=== PATIENT | female | born 1955 | race Caucasian/White ===

== ENCOUNTER 2019-07-01 10:56 | Emergency (ER) | payer MEDICARE, MEDICAID, SELFPAY ==
[2019-07-01] VITALS (13 sets, daily range): BP systolic 185–229; BP diastolic 76–140; PULSE 76–124; RESP 4–40; TEMP 36.5; O2SAT 95–98; BMI 23.2
--- NOTE | 2019-07-01 11:17 | ED_ITS ---
Entered by Ronny Freeman LPN, acting as scribe for HPI - Altered Mental Status General: Chief Complaint: Altered Mental Status Stated Complaint: confused Time Seen by Provider: 07/01/19 11:18 Source: family (spouse) Mode of arrival: wheelchair Limitations: altered mental status History of Present Illness: HPI narrative: 63 yo female presents with spouse reporting he woke at 0800 this am to find pt with AMS, not responding to him. Unknown specific time of onset of symptoms. Spouse reports pt was at her baseline when they went to bed about 2200 last night. 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 Spouse states she doesn't usually look toward the left, she is flaccid on the left side. At baseline she is incontinent of bowel and bladder. He states she is spacey today, unusual for her. Also states that she is minimally verbal or communicative at baseline whereas today she is nonverbal. Spouse states last time she was like this she had a UTI, has had two of these since her CVA 2 years ago. MD complaint: altered mental status and decreased responsiveness Onset (ago): unknown (last known at baseline at 2200 last night) Timing confirmed by: spouse Severity: severe Consistency of symptoms: Constant Review of Systems General: Reports: ROS unobtainable due to mental status (pt unable to provide history, it has been obtained from spouse) GI: Denies: vomiting or diarrhea : Reports: other (pt is chronically incontinent of bowel and bladder.) Neuro: Reports: other (AMS, decreased responsiveness, spacey per spouse) PFSH ED PFSH: Statuses (acute, chronic, etc) shown below reflect problem list status as previously entered and may not be historically accurate Social History Smoking and tobacco status: former smoker Physical Exam Const: COMMON NORMALS: no apparent distress and alert EXAM LIMITATIONS: other limitations (history of cva with left hemineglect, nonverbal today) GENERAL APPEARANCE: cooperative and frail appearing NUTRITIONAL APPEARANCE: cachectic ORIENTATION/CONSCIOUSNESS: Yes awake HENMT: COMMON NORMALS: normocephalic and external nose normal HEAD & SCALP: normocephalic NOSE: external nose normal MOUTH: other (dried secretions to right lower mouth) Resp: COMMON NORMALS: normal respiratory effort Cardio: COMMON NORMALS: regular rate and regular rhythm RATE: regular rate RHYTHM: regular rhythm Neuro: SENSORIUM/ORIENTATION: Yes alert OTHER: pt has residual left sided moe-neglect from prior cva 2 years ago, will not track past midline to left, 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 Labs: Lab Results 07/01/19 07/01/19 07/01/19 Range/Units 11:30 11:30 12:01 WBC (4.0-10.0) 10^3/ uL RBC (4.1-5.3) 10^6/u L Hgb (11.5-15.3) g/dL Hct (37.0-47.0) % MCV (81-99) fL MCH (28.0-34.0) pg MCHC (30.0-36.0) g/dL RDW (12.1-15.1) % Plt Count (130-400) 10^3/c mm MPV (7.4-10.4) fL Neut % (Auto) % Lymph % (Auto) % [place] % (Auto) % Eos % (Auto) % Baso % (Auto) % Neut # (Auto) (1.8-7.7) 10^3/u L Lymph # (Auto) (0.8-4.8) 10^3/u L [place]clean # (Auto) (0.2-0.9) 10^3/u L Eos # (Auto) (0.0-0.8) 10^3/u L Baso # (Auto) (0.0-0.1) 10^3/u L Nucleated RBC % (a uto) % Nucleated RBCs # /100WBC PT (10.5-13.3) SECO NDS INR (0.8-1.2) APTT (23.9-36.7) SECO NDS Sodium (136-145) mmol/L Potassium (3.5-5.1) mmol/L Chloride (98-107) mmol/L Carbon Dioxide (22-29) mmol/L Anion Gap (5-19) BUN (8-23) mg/dL Creatinine (0.5-0.9) mg/dL GFR Calculation (90-130) mL/min Glucose (74-106) mg/dL POC Glucose 94 (70-110) mg/dL Calcium (8.8-10.2) mg/Dl Total Bilirubin (0.15-1.2) mg/dL AST (0-32) U/L ALT (0-33) U/L Alkaline Phosphata se (35-105) IU/L Total Protein (6.6-8.7) g/dL Albumin (3.5-5.2) g/dL Globulin (1.3-4.6) g/dL Urine Color Yellow (Yellow) Urine Appearance Hazy A (CLEAR) Urine pH 7 (5-7) Ur Specific Gravit y 1.005 (1.005-1.030) Urine Protein Trace (Negative) Urine Glucose (UA) Norm (Normal) Urine Ketones Negative (Negative) Urine Occult Blood Neg (Negative) Urine Nitrate Positive H (Negative) Urine Bilirubin Neg (NEGATIVE) Urine Urobilinogen 1 H (Negative) mg/dL Ur Leukocyte Lily ase 2+ H (Negative) Urine RBC None (0-2) /hpf Urine WBC 40-55 H (0-5) /hpf Ur Squamous Epith Cells 0-4 H (0-5) Urine Bacteria 4+ H (NONE) Urine Opiates Scre en Negative (Negative) ng/mL Ur Barbiturates Sc reen Negative (Negative) ng/mL Ur Phencyclidine S crn Negative (Negative) ng/mL Ur Amphetamines Sc reen Negative (Negative) ng/mL U Benzodiazepines Scrn Negative (Negative) ng/mL Urine Cocaine Scre en Negative (Negative) ng/mL U Marijuana (THC) Screen Negative (Negative) ng/mL 07/01/19 07/01/19 07/01/19 Range/Units 12:10 12:10 12:10 WBC 8.3 (4.0-10.0) 10^3/ uL RBC 3.78 L (4.1-5.3) 10^6/u L Hgb 10.5 L (11.5-15.3) g/dL Hct 32.3 L (37.0-47.0) % MCV 85.4 (81-99) fL MCH 27.8 L (28.0-34.0) pg MCHC 32.5 (30.0-36.0) g/dL RDW 13.5 (12.1-15.1) % Plt Count 378 (130-400) 10^3/c mm MPV 10.0 (7.4-10.4) fL Neut % (Auto) 69.7 % Lymph % (Auto) 23.1 % [place]clean % (Auto) 5.6 % Eos % (Auto) 1.0 % Baso % (Auto) 0.4 % Neut # (Auto) 5.8 (1.8-7.7) 10^3/u L Lymph # (Auto) 1.9 (0.8-4.8) 10^3/u L [place] # (Auto) 0.5 (0.2-0.9) 10^3/u L Eos # (Auto) 0.1 (0.0-0.8) 10^3/u L Baso # (Auto) 0.0 (0.0-0.1) 10^3/u L Nucleated RBC % (a uto) 0 % Nucleated RBCs # 0.0 /100WBC PT 13.60 H (10.5-13.3) SECO NDS INR 1.01 (0.8-1.2) APTT 25.2 (23.9-36.7) SECO NDS Sodium 139 (136-145) mmol/L Potassium 2.9 L (3.5-5.1) mmol/L Chloride 99 (98-107) mmol/L Carbon Dioxide 27 (22-29) mmol/L Anion Gap 15.9 (5-19) BUN 6 L (8-23) mg/dL Creatinine 0.5 (0.5-0.9) mg/dL GFR Calculation 123.8 (90-130) mL/min Glucose 98 (74-106) mg/dL POC Glucose (70-110) mg/dL Calcium 10.0 (8.8-10.2) mg/Dl Total Bilirubin 0.5 (0.15-1.2) mg/dL AST 15 (0-32) U/L ALT 11 (0-33) U/L Alkaline Phosphata se 104 (35-105) IU/L Total Protein 7.5 (6.6-8.7) g/dL Albumin 3.3 L (3.5-5.2) g/dL Globulin 4.2 (1.3-4.6) g/dL Urine Color (Yellow) Urine Appearance (CLEAR) Urine pH (5-7) Ur Specific Gravit y (1.005-1.030) Urine Protein (Negative) Urine Glucose (UA) (Normal) Urine Ketones (Negative) Urine Occult Blood (Negative) Urine Nitrate (Negative) Urine Bilirubin (NEGATIVE) Urine Urobilinogen (Negative) mg/dL Ur Leukocyte Lily ase (Negative) Urine RBC (0-2) /hpf Urine WBC (0-5) /hpf Ur Squamous Epith Cells (0-5) Urine Bacteria (NONE) Urine Opiates Scre en (Negative) ng/mL Ur Barbiturates Sc reen (Negative) ng/mL Ur Phencyclidine S crn (Negative) ng/mL Ur Amphetamines Sc reen (Negative) ng/mL U Benzodiazepines Scrn (Negative) ng/mL Urine Cocaine Scre en (Negative) ng/mL U Marijuana (THC) Screen (Negative) ng/mL Imaging Data^: CXR: Radiologist's impression: Patient: Nguyen Morin #: [id number] : 4Acct#:[id number] Age/Sex: 63 / FADM Date: 07/01/19 Loc: ERRoom/Bed: Attending Dr: Ordering Provider/Ordering MD: Soila Bonilla DO Date of Service: 07/01/19 Procedure(s): CT head wo con* 79185 Accession Number(s): [id number] Report Number: [id number]/CT head wo con* [id number] THIS REPORT CONTAINS FINDINGS THAT MAY BE CRITICAL TO PATIENT CARE. The findings were verbally communicated via telephone conference with Soila Bonilla at 1:19 PM MANAGER [employer] on 07/01/2019. The findings were acknowledged and understood. Radiation Dose CTDIVOL = (mGy): DLP = 2185.33 (mGy-cm) Addendum Dictated By: Johnathan Griffin MD Addendum Signed By: Johnathan Griffin MDSigned Date/Time:07/01/19 1320 Addendum Cosigned By: PROCEDURE INFORMATION: Exam: CT Head Without Contrast Exam date and time: 07/01/2019 12:06 PM Age: 63 years old Clinical indication: Altered mental status/memory loss and weakness, extremity; Left; Confusion or disorientation; Additional info: Symptoms of acute stroke TECHNIQUE: Imaging protocol: Computed tomography of the head without contrast. Total DLP: 2185.33 mGy-cm Radiation optimization: All CT scans at this facility use at least one of these dose optimization techniques: automated exposure control; mA and/or kV adjustment per patient size (includes targeted exams where dose is matched to clinical indication); or iterative reconstruction. COMPARISON: No relevant prior studies available. FINDINGS: Brain: Encephalomalacia in the right frontal and parietal lobe.There is gyral hyperdensity and calcification. Finding may represent laminar necrosis. Small superimposed hemorrhage cannot be excluded. Comparison with prior imaging if available can be helpful. Ventricles: Normal. No ventriculomegaly. Bones/joints: Unremarkable. No acute fracture. Sinuses: Opacification of bilateral maxillary and ethmoid as well as sphenoid and frontal sinuses. Mastoid air cells: Partial opacification of the right mastoid air cells. Soft tissues: Unremarkable. Vasculature: CT/CT head wo con* [id number] IMPRESSION: Encephalomalacia in the right frontal and parietal lobe with gyral hyperdensity and calcification. Finding may represent laminar necrosis. Small superimposed hemorrhage cannot be excluded. Comparison with prior imaging if available can be helpful. Otherwise a short term followup can be considered for stability. Radiation Dose CTDIVOL = (mGy): DLP = 2185.33 (mGy-cm) Dictated By:Johnathan Griffin MD CT Head: Radiologist's impression: Patient: Nguyen Morin #: [id number] : [facility][id number] Age/Sex: 63 / FADM Date: 07/01/19 Loc: BANNERoom/Bed: Attending Dr: Ordering Provider/Ordering MD: Soila Bonilla DO Date of Service: 07/01/19 Procedure(s): XR chest 1V portable [id number] Accession Number(s): [id number] Report Number: [id number] PROCEDURE INFORMATION: Exam: XR Chest, 1 View Exam date and time: 07/01/2019 12:38 PM Age: 63 years old Clinical indication: Patient HX: PT was brought in [facility], limited HX available TECHNIQUE: Imaging protocol: XR of the chest Views: 1 view. COMPARISON: CR Chest 1 [place] [id number] 03/25/2019 1:15 PM FINDINGS: Lungs: Unremarkable. No consolidation. Pleural space: Unremarkable. No pleural effusion. No pneumothorax. Heart/Mediastinum: Unremarkable. No cardiomegaly. Bones/joints: Degenerative changes of the spine and bilateral shoulder joints. XR/XR chest 1V portable [id number] IMPRESSION: No acute abnormality. Dictated By:Johnathan Griffin MD EKG Data^: EKG 1: Computer generated interpretation: Measurements Intervals [place] Rate: 98 P: 46 NM: 163 QRS: 38 QRSD: 82 T: 40 QT: 370 QTc: [address] DEPRESSION [0.025+ mV ST DEPRESSION] INTERPRETATION BASED ON A DEFAULT AGE OF 40 YEARS Compared to ECG 03/25/2019 13:29:24 Sinus tachycardia no longer present ST (T wave) deviation still present [email or web address] Dictated By:INTERFACE,USER Signed By:Signed Date/Time: DD/ 1201 Discharge Plan Discharge Patient Disposition: Home, Self-Care Clinical Impression: Acute UTI (urinary tract infection), Delirium due to general medical condition, Hypokalemia Condition: Stable Prescriptions: New potassium chloride 20 mEq/15 mL liquid 20 meq PO DAILY Qty: 1200 RF: 0 doxycycline monohydrate 100 mg capsule 100 mg PO BID 7 Days Qty: 14 RF: 0 clonidine HCl 0.1 mg tablet 0.1 mg PO TID Qty: 30 RF: 0 No Action atorvastatin 80 mg tablet 80 mg PO DAILY RF: 0 clonidine HCl 0.1 mg Tablet 0.1 mg PO DAILY PRN (Reason: Blood Pressure) RF: 0 lisinopril 20 mg tablet 20 mg PO DAILY RF: 0 Senna Plus 8.6-50 mg tablet 1 tab PO BID RF: 0 clopidogrel 75 mg tablet 75 mg PO DAILY RF: 0 metformin 1,000 mg Tablet 1,000 mg PO BID RF: 0 Referrals: Angie Conn MD [Primary Care Provider] - Discharge Diet: Usual diet Discharge Activity: Resume usual activity Patient Instructions: Urinary Tract Infection in Women (ED), Hypokalemia (ED), Altered Mental Status (ED) Coding Level of Care Code ED Velocity Shooter for Chg Fwd Exam Problem Focused The documentation recorded by the Lydia rouse Dani Elizabeth, LPN, accurately reflects the service I personally performed and the decisions made by Chad goodwin Amanda, DO Jul 01, 2019 10:56
--- NOTE | 2019-07-01 11:48 | XRR_ITS ---
PROCEDURE INFORMATION: Exam: XR Chest, 1 View Exam date and time: 07/01/2019 12:38 PM Age: 63 years old Clinical indication: Patient HX: PT was brought in [facility], limited HX available TECHNIQUE: Imaging protocol: XR of the chest Views: 1 view. COMPARISON: CR Chest 1 [place] [id number] 03/25/2019 1:15 PM FINDINGS: Lungs: Unremarkable. No consolidation. Pleural space: Unremarkable. No pleural effusion. No pneumothorax. Heart/Mediastinum: Unremarkable. No cardiomegaly. Bones/joints: Degenerative changes of the spine and bilateral shoulder joints. XR/XR chest 1V portable [id number] IMPRESSION: No acute abnormality.
--- NOTE | 2019-07-01 11:49 | ECG_ITS ---
Measurements Intervals [place] Rate: 98 P: 46 DE: 163 QRS: 38 QRSD: 82 T: 40 QT: 370 QTc: [address] DEPRESSION [0.025+ mV ST DEPRESSION] INTERPRETATION BASED ON A DEFAULT AGE OF 40 YEARS Compared to ECG 03/25/2019 13:29:24 Sinus tachycardia no longer present ST (T wave) deviation still present Electronically Signed On 07-01-2019 16:47:25 THREE D[employer]IONAL ART INSTRUCTOR by Razia Bacon M.D. [email or web address]
--- NOTE | 2019-07-01 11:49 | CTR_ITS ---
PROCEDURE INFORMATION: Exam: CT Head Without Contrast Exam date and time: 07/01/2019 12:06 PM Age: 63 years old Clinical indication: Altered mental status/memory loss and weakness, extremity; Left; Confusion or disorientation; Additional info: Symptoms of acute stroke TECHNIQUE: Imaging protocol: Computed tomography of the head without contrast. Total DLP: 2185.33 mGy-cm Radiation optimization: All CT scans at this facility use at least one of these dose optimization techniques: automated exposure control; mA and/or kV adjustment per patient size (includes targeted exams where dose is matched to clinical indication); or iterative reconstruction. COMPARISON: No relevant prior studies available. FINDINGS: Brain: Encephalomalacia in the right frontal and parietal lobe.There is gyral hyperdensity and calcification. Finding may represent laminar necrosis. Small superimposed hemorrhage cannot be excluded. Comparison with prior imaging if available can be helpful. Ventricles: Normal. No ventriculomegaly. Bones/joints: Unremarkable. No acute fracture. Sinuses: Opacification of bilateral maxillary and ethmoid as well as sphenoid and frontal sinuses. Mastoid air cells: Partial opacification of the right mastoid air cells. Soft tissues: Unremarkable. Vasculature: CT/CT head wo con* [id number] IMPRESSION: Encephalomalacia in the right frontal and parietal lobe with gyral hyperdensity and calcification. Finding may represent laminar necrosis. Small superimposed hemorrhage cannot be excluded. Comparison with prior imaging if available can be helpful. Otherwise a short term followup can be considered for stability. Radiation Dose CTDIVOL = (mGy): DLP = 2185.33 (mGy-cm)
[2019-07-01 12:16] LABS: Glucose Point of Care 94 mg/dL (70-110)
[2019-07-01 12:29] LABS: Basophils % 0.4 %; Eosinophils # 0.1 10^3/uL (0.0-0.8); Hematocrit 32.3 % (37.0-47.0); Hemoglobin 10.5 g/dL (11.5-15.3); Lymphocytes # 1.9 10^3/uL (0.8-4.8); Lymphocytes % 23.1 %; Mean Corpuscular HGB Conc 32.5 g/dL (30.0-36.0); Mean Corpuscular Hemoglobin 27.8 pg (28.0-34.0); Mean Corpuscular Volume 85.4 fL (81-99); Monocytes # 0.5 10^3/uL (0.2-0.9); Monocytes % 5.6 %; Neutrophils # 5.8 10^3/uL (1.8-7.7); Neutrophils % 69.7 %; Nucleated Red Blood Cells % 0 %; Platelet Count 378 10^3/cmm (130-400); Red Blood Count 3.78 10^6/uL (4.1-5.3); Red Cell Distribution Width 13.5 % (12.1-15.1); White Blood Count 8.3 10^3/uL (4.0-10.0)
[2019-07-01] MEDS: sodium chloride 0.9% 500 ML 999 ML IV (12:29)
[2019-07-01] MEDS: hyDRALAzine 20 mg/mL INJ 1 mL 10 MG IVP (12:29)
[2019-07-01 12:36] LABS: INR 1.01 (0.8-1.2)
[2019-07-01 12:37] LABS: Partial Thromboplastin Time 25.2 SECONDS (23.9-36.7)
[2019-07-01 12:49] LABS: Alanine Aminotransferase 11 U/L (0-33); Albumin Level 3.3 g/dL (3.5-5.2); Alkaline Phosphatase 104 IU/L (35-105); Anion Gap 15.9 (5-19); Aspartate Amino Transferase 15 U/L (0-32); Blood Urea Nitrogen 6 mg/dL (8-23); Carbon Dioxide 27 mmol/L (22-29); Chloride 99 mmol/L (98-107); Globulin 4.2 g/dL (1.3-4.6); Glomerular Filtration Rate 123.8 mL/min (90-130); Glucose 98 mg/dL (74-106); Potassium 2.9 mmol/L (3.5-5.1); Sodium 139 mmol/L (136-145); Total Bilirubin 0.5 mg/dL (0.15-1.2); Total Protein 7.5 g/dL (6.6-8.7)
[2019-07-01 13:16] LABS: Glucose Urine UA Norm (Normal); Protein Urine Trace (Negative); Specific Gravity, Urine 1.005 (1.005-1.030); Urine Appearance Hazy (CLEAR); Urine Color Yellow (Yellow); pH Urine 7 (5-7)
[2019-07-01 13:17] LABS: Add Urine Microscopic? YES; Bilirubin Urine Neg (NEGATIVE); Blood Urine Neg (Negative); Ketones Urine Negative (Negative); Leukocyte Esterase Urine 2+ (Negative); Nitrate Urine Positive (Negative); Urobilinogen Urine 1 mg/dL (Negative)
[2019-07-01 13:18] LABS: Bacteria Urine 4+; Squamous Epithelial Cell Urine 0-4 (0-5)
[2019-07-01 13:19] LABS: Add Urine Culture? Yes; WBC Urine 40-55 /hpf (0-5)
[2019-07-01 13:21] LABS: Amphetamines Screen Urine Negative (Negative); Barbiturates Screen Urine Negative (Negative); Benzodiazepines Screen Urine Negative (Negative); Cocaine Screen Urine Negative (Negative); Opiate Screen Urine Negative (Negative); PCP Screen Urine Negative (Negative); THC Screen Urine Negative (Negative)
[2019-07-01] MEDS: cefTRIAXone 1,000 MG in sodium chloride 0.9% (plus) 50 ML 100 MG IV (14:06)
--- NOTE | 2019-07-01 14:06 | CTR_ITS ---
PROCEDURE INFORMATION: Exam: CT Head Without Contrast Exam date and time: 07/01/2019 2:56 PM Age: 63 years old Clinical indication: Altered mental status/memory loss; Confusion or disorientation; Additional info: Repeat to RO bleed TECHNIQUE: Imaging protocol: Computed tomography of the head without contrast. Total DLP: 807.27 mGy-cm Radiation optimization: All CT scans at this facility use at least one of these dose optimization techniques: automated exposure control; mA and/or kV adjustment per patient size (includes targeted exams where dose is matched to clinical indication); or iterative reconstruction. COMPARISON: CT head wo con* [id number] 07/01/2019 12:35 PM FINDINGS: Brain: There is diffuse volume loss. There is extensive white matter lucency consistent with chronic microvascular disease. There is extensive right rib cerebral encephalomalacia involving frontal, temporal and parietal lobes. This is consistent with extensive old right MCA infarct. There are areas of laminar necrosis and dystrophic calcification within the infarct. There is an old left basal ganglia infarct. Small old right cerebellar lacunar infarct. No acute infarct. No hemorrhage or extra-axial collection. No mass. Ventricles: There is ex vacuo dilatation of the right lateral ventricle. Bones/joints: Unremarkable. No acute fracture. Sinuses: There is extensive opacification of all of the visualized sinuses. The visualized left maxillary sinus is completely opacified. There are multiple air-fluid levels. No change from prior scan. Mastoid air cells: There is fluid in the middle ears and mastoid air cells bilaterally. No change from prior scan. Soft tissues: Unremarkable. CT/CT head wo con* [id number] IMPRESSION: 1. Extensive old right MCA infarct with laminar necrosis and dystrophic calcification. Old left basal ganglia infarct. 2. No acute lesion or hemorrhage. No change from prior scan. Radiation Dose CTDIVOL = (mGy): DLP = 807.27 (mGy-cm)
[2019-07-01] MEDS: cloNIDine 0.1 mg Tablet PO (16:29)
[2019-07-01 22:23] LABS: Glucose Point of Care 91 mg/dL (70-110)
== END 2019-07-01 16:53 | disposition home or self-care (01) ==
PROVIDERS: Emergency Provider Emergency Medicine; Family Provider Family Medicine; PCP Family Medicine
DX: N39.0 Urinary tract infection, site not specified (principal); F05 Delirium due to known physiological condition; E87.6 Hypokalemia; Z79.02 Long term (current) use of antithrombotics/antiplatelets; Z79.84 Long term (current) use of oral hypoglycemic drugs; Z87.891 Personal history of nicotine dependence
CPT/HCPCS: 36415; 36416; 51702; 70450; 71045; 80053; 80307; 81003; 82962; 85025; 85610; 85730; 87077; 87086; 87186; 93005; 96360; 96365; 96366; 96374; 99283; J0360; J0696; J3480; J7040

== ENCOUNTER 2019-09-29 22:13 | Emergency (ER) | payer MEDICARE, MEDICAID, SELFPAY ==
[2019-09-29 22:42] VITALS: BP 115/99; PULSE 123; RESP 16; TEMP 37.3; O2SAT 95; BMI 22.8
--- NOTE | 2019-09-29 23:10 | XRR_ITS ---
PROCEDURE INFORMATION: Exam: XR Left Shoulder Exam date and time: 09/29/2019 11:41 PM Age: 63 years old Clinical indication: Injury or trauma; Fall; Initial encounter; Blunt trauma (contusions or hematomas; Shoulder; Left; Additional info: Fall, pain TECHNIQUE: Imaging protocol: XR Left shoulder. Views: 2 or more views. COMPARISON: No relevant prior studies available. FINDINGS: Bones/joints: The bones are diffusely osteopenic. There is a displaced fracture of the humeral neck. The acromioclavicular joint is degenerated. The glenohumeral joint is difficult to evaluate on these images due to positioning. Soft tissues: No acute soft tissue abnormality. XR/XR shoulder LT min 2V* [id number] IMPRESSION: Displaced humeral neck fracture.
--- NOTE | 2019-09-29 23:11 | XRR_ITS ---
PROCEDURE INFORMATION: Exam: XR Chest, 1 View Exam date and time: 09/29/2019 11:41 PM Age: 63 years old Clinical indication: Fever TECHNIQUE: Imaging protocol: XR of the chest Views: 1 view. COMPARISON: CR XR chest 1V portable [id number] 07/01/2019 12:27 PM FINDINGS: Lungs: No focal peripheral lung consolidation, air bronchogram formation, or silhouette sign. Pleural space: No pleural effusion or pneumothorax. Heart/Mediastinum: The cardiac silhouette is not enlarged. The mediastinal contours are normal. Bones/joints: There is a displaced left humeral neck fracture. There are multilevel bridging osteophytes in the spine. Degeneration of both acromioclavicular joints. XR/XR chest 1V portable [id number] IMPRESSION: 1. No pneumonia. 2. Displaced left humeral neck fracture.
--- NOTE | 2019-09-29 23:11 | W.ED.GENADLT ---
HPI - General Adult General: Chief complaint: Fever Stated complaint: fever Time Seen by Provider: 09/29/19 22:49 History of Present Illness: HPI narrative: states patient was fine earlier today then got sick to her stomach and then she is been weak since. Not been taking fluids well well has history of chronic UTIs. History of past stroke left side affected. Then while he was get around the car this evening she fell on her left side he says she has left shoulder pain now. complaint: Vomiting with weakness Onset (ago): hour(s) Location: upper extremity Associated symptoms: Reports vomiting and weakness; Deny chest pain, dyspnea, headache(s) or rash Review of Systems Const: Reports: fever; Denies: chills or body aches Eyes: Denies: change in vision or blurry vision ENMT: Denies: throat pain or nasal congestion Card: Denies: chest pain or shortness of breath on exertion Resp: Denies: shortness of breath, productive cough or non-productive cough GI: Reports: vomiting Musc: Reports: extremity pain (Left shoulder) Skin/Breast: Denies: rash Neuro: Denies: headache Psych: Denies: anxiety or depression Scott/Lymph: Denies: easy bruising PFSH ED PFSH: Social History Smoking and tobacco status: former smoker Physical Exam Const: COMMON NORMALS: no apparent distress and average body habitus HENMT: COMMON NORMALS: normocephalic HEAD & SCALP: normal to inspection and normocephalic FACE & SINUS: normal facial exam Eye: COMMON NORMALS: conjunctivae normal GENERAL EYE: normal appearance of both eyes CONJUNCTIVA: Yes conjunctivae normal Neck/C-Spine: COMMON NORMALS: no JVD Chest: COMMONS NORMALS: inspection of chest normal Resp: COMMON NORMALS: normal respiratory effort and clear to auscultation bilaterally AUSCULTATION: clear to auscultation bilaterally Cardio: COMMON NORMALS: no JVD, regular rate and regular rhythm RATE: regular rate RHYTHM: regular rhythm GI: COMMON NORMALS: normal to inspection, nondistended, normoactive bowel sounds Extremity: COMMON NORMALS: normal to inspection NARRATIVE EXTREMITY EXAM: Pain with movement of left shoulder Neuro: SENSORIUM/ORIENTATION: Yes other (Patient does not communicate well does answer questions appropriately) Skin: NAILS: other OTHER: Poor turgor thin skin on the arms lower extremities cool Course Vital Signs: Vital signs: Vital Signs Temperature 99.1 F 09/29/19 22:42 Pulse Rate 110 H 09/29/19 23:49 Respiratory Rate 18 09/29/19 23:49 Blood Pressure 152/98 09/29/19 23:49 Pulse Oximetry 98 09/29/19 23:49 [facility] - General Adult Lab Data: Labs: Lab Results 09/29/19 09/29/19 Range/Units 23:10 23:10 WBC 10.3 H (4.0-10.0) 10^3/ uL RBC 3.73 L (4.1-5.3) 10^6/u L Hgb 10.8 L (11.5-15.3) g/dL Hct 34.2 L (37.0-47.0) % MCV 91.7 (81-99) fL MCH 29.0 (28.0-34.0) pg MCHC 31.6 (30.0-36.0) g/dL RDW 14.2 (12.1-15.1) % Plt Count 200 (130-400) 10^3/c mm MPV 10.9 H (7.4-10.4) fL Neut % (Auto) 84.5 % Lymph % (Auto) 6.1 % [place] % (Auto) 8.5 % Eos % (Auto) 0.1 % Baso % (Auto) 0.4 % Neut # (Auto) 8.7 H (1.8-7.7) 10^3/u L Lymph # (Auto) 0.6 L (0.8-4.8) 10^3/u L [place] # (Auto) 0.9 (0.2-0.9) 10^3/u L Eos # (Auto) 0.0 (0.0-0.8) 10^3/u L Baso # (Auto) 0.0 (0.0-0.1) 10^3/u L Nucleated RBC % (a uto) 0 % Nucleated RBCs # 0.0 /100WBC Sodium 137 (136-145) mmol/L Potassium 4.2 (3.5-5.1) mmol/L Chloride 101 (98-107) mmol/L Carbon Dioxide 23 (22-29) mmol/L Anion Gap 17.2 (5-19) BUN 22 (8-23) mg/dL Creatinine 0.7 (0.5-0.9) mg/dL GFR Calculation 84.0 L (90-130) mL/min Glucose 222 H (65-115) mg/dL Calculated Osmolal ity 288 (285-295) mOsm/k g Calcium 10.7 H (8.5-10.5) mg/dL Total Bilirubin 0.4 (0.15-1.2) mg/dL AST 42 H (0-32) U/L ALT 40 H (0-33) U/L Alkaline Phosphata se 129 H (35-105) IU/L Total Protein 6.9 (6.6-8.7) g/dL Albumin 3.6 (3.5-5.2) g/dL Globulin 3.3 (1.3-4.6) g/dL EKG Data^: EKG 1: EKG interpretation date: 09/29/19 EKG interpretation time: 23:47 Interpretation: Sinus tachycardia 110 bpm [place] interval 149 ms QRS duration [address] segment changes Discharge Plan Discharge Clinical Impression: Fracture, humerus, anatomical neck Qualifiers: Encounter type: initial encounter Fracture type: closed Laterality: left Qualified Code(s): S42.292A - Other displaced fracture of upper end of left humerus, initial encounter for closed fracture Condition: Stable Prescriptions: No Action lisinopril 20 mg tablet 20 mg PO DAILY Qty: 60 RF: 0 potassium chloride 20 mEq/15 mL liquid 20 meq PO DAILY Qty: 1200 RF: 0 metformin 1,000 mg tablet 1,000 mg PO BID Qty: 180 RF: 0 atorvastatin 80 mg tablet 80 mg PO DAILY Qty: 90 RF: 0 clonidine HCl 0.1 mg Tablet 0.1 mg PO DAILY PRN (Reason: Blood Pressure) RF: 0 Senna Plus 8.6-50 mg tablet 1 tab PO BID RF: 0 clopidogrel 75 mg tablet 75 mg PO DAILY RF: 0 clonidine HCl 0.1 mg tablet 0.1 mg PO TID Qty: 30 RF: 0 Referrals: Angie Conn MD [Primary Care Provider] - Coding Level of Care Code ED Valance Cutter for g Fwd Exam Comprehensive
[2019-09-29 23:21] LABS: Basophils % 0.4 %; Eosinophils % 0.1 %; Hematocrit 34.2 % (37.0-47.0); Hemoglobin 10.8 g/dL (11.5-15.3); Lymphocytes # 0.6 10^3/uL (0.8-4.8); Lymphocytes % 6.1 %; Mean Corpuscular HGB Conc 31.6 g/dL (30.0-36.0); Mean Corpuscular Volume 91.7 fL (81-99); Mean Platelet Volume 10.9 fL (7.4-10.4); Monocytes # 0.9 10^3/uL (0.2-0.9); Monocytes % 8.5 %; Neutrophils # 8.7 10^3/uL (1.8-7.7); Neutrophils % 84.5 %; Nucleated Red Blood Cells % 0 %; Platelet Count 200 10^3/cmm (130-400); Red Blood Count 3.73 10^6/uL (4.1-5.3); Red Cell Distribution Width 14.2 % (12.1-15.1); White Blood Count 10.3 10^3/uL (4.0-10.0)
[2019-09-29] MEDS: sodium chloride 0.9% 1,000 ML 999 ML IV (23:32)
[2019-09-29 23:49] VITALS: BP 152/98; PULSE 110; RESP 18; O2SAT 98
[2019-09-29 23:53] LABS: Alanine Aminotransferase 40 U/L (0-33); Albumin Level 3.6 g/dL (3.5-5.2); Alkaline Phosphatase 129 IU/L (35-105); Anion Gap 17.2 (5-19); Aspartate Amino Transferase 42 U/L (0-32); Blood Urea Nitrogen 22 mg/dL (8-23); Calcium 10.7 mg/dL (8.5-10.5); Carbon Dioxide 23 mmol/L (22-29); Chloride 101 mmol/L (98-107); Creatinine Clr Calc Pharmacy 56.7286; Globulin 3.3 g/dL (1.3-4.6); Glucose 222 mg/dL (65-115); Osmolality Calculated 288 mOsm/kg (285-295); Potassium 4.2 mmol/L (3.5-5.1); Sodium 137 mmol/L (136-145); Total Bilirubin 0.4 mg/dL (0.15-1.2); Total Protein 6.9 g/dL (6.6-8.7)
[2019-09-30] MEDS: ketorolac 60 mg/2 mL INJ IM (00:12)
[2019-09-30 00:49] VITALS: BP 125/76; PULSE 87; RESP 14; O2SAT 98
[2019-09-30 01:21] LABS: Add Urine Microscopic? YES; Bilirubin Urine Neg (NEGATIVE); Blood Urine 3+ (Negative); Glucose Urine UA Norm (Normal); Ketones Urine Negative (Negative); Leukocyte Esterase Urine 2+ (Negative); Nitrate Urine Positive (Negative); Protein Urine 1+ (Negative); Squamous Epithelial Cell Urine 0-4 (0-5); Urine Appearance Cloudy (CLEAR); Urine Color Yellow (Yellow); Urobilinogen Urine Norm (Negative); WBC Urine 25-40 /hpf (0-5); pH Urine 5 (5-7)
[2019-09-30 01:22] LABS: Add Urine Culture? Yes; Bacteria Urine 4+
[2019-09-30] MEDS: cefTRIAXone 1,000 MG in sodium chloride 0.9% (plus) 50 ML 100 MG IV (01:38)
[2019-09-30 02:38] VITALS: BP 122/79; PULSE 98; RESP 18; O2SAT 99
--- NOTE | 2019-10-03 15:15 | DCPLANNER ---
Addendum entered by Mandi Thomas 10/03/19 15:24: Angelita from ortho called home health care case manager, informing home health care case manager that a follow up appointment was scheduled for Friday, October 04, 2019 at 3:[address] Deluna. Clinic called patient with appointment information. Original Note: seed corn manager production had message to schedule a follow up appointment for patient with ortho. seed corn manager production called the ortho clinic, spoke with Angelita. seed corn manager production gave clinic patients information. seed corn manager production was told that patients information would be printed and reviewed. Clinic will call home health care case manager and patient with appointment information.
--- NOTE | 2019-11-15 07:57 | DCPLANNER ---
Patient did attend appointment scheduled for 10.04.19 with ortho.
== END 2019-09-30 02:39 | disposition home or self-care (01) ==
PROVIDERS: Emergency Provider Nurse Practitioner Family; Family Provider Family Medicine; PCP Family Medicine
DX: S42.292A Other displaced fracture of upper end of left humerus, initial encounter for closed fracture (principal); R50.9 Fever, unspecified; W01.0XXA Fall on same level from slipping, tripping and stumbling without subsequent striking against object, initial encounter; N39.0 Urinary tract infection, site not specified; Z86.73 Personal history of transient ischemic attack (TIA), and cerebral infarction without residual deficits; Z87.891 Personal history of nicotine dependence
CPT/HCPCS: 12345; 71045; 73030; 80053; 81001; 85025; 87077; 87086; 87186; 96360; 96361; 96365; 96372; 99283; A9270; J0696; J1885; J7030

== ENCOUNTER → 2019-10-24 12:23 | Outpatient (BNVA) | payer MEDICARE, MEDICAID, SELFPAY | PROVIDERS: Family Provider Family Medicine; PCP Family Medicine; Visit Provider Orthopaedic Surgery | DX: S42.212A Unspecified displaced fracture of surgical neck of left humerus, initial encounter for closed fracture (principal); M81.0 Age-related osteoporosis without current pathological fracture | CPT/HCPCS: 73030 ==

== ENCOUNTER 2020-02-24 16:54 | Emergency (ER) | payer MEDICARE, MEDICAID, SELFPAY ==
[2020-02-24 16:55] VITALS: BP 162/105; PULSE 109; RESP 18; TEMP 39.1; O2SAT 95; BMI 27.2
[2020-02-24 17:41] VITALS: BP 162/105; PULSE 104; RESP 20; O2SAT 96
[2020-02-24 18:08] VITALS: BP 167/91; PULSE 96; RESP 18; O2SAT 97
--- NOTE | 2020-02-24 18:10 | XRR_ITS ---
PROCEDURE INFORMATION: Exam: XR Chest, 1 View Exam date and time: 02/24/2020 6:29 PM Age: 64 years old Clinical indication: Dyspnea and fever TECHNIQUE: Imaging protocol: XR of the chest Views: 1 view. COMPARISON: CR XR chest 1V portable [id number] 09/29/2019 11:21 PM FINDINGS: Lungs: Visualized portions of the lungs are clear. Pleural space: Unremarkable. No pleural effusion. No pneumothorax. Heart/Mediastinum: Heart is within normal limits of size. Vasculature: There are atherosclerotic changes in the aortic arch. Bones/joints: There is healing fracture of the neck of the left humerus. Degenerative changes are present in the thoracic spine. XR/XR chest 1V portable [id number] IMPRESSION: No acute infiltrate.
[2020-02-24 18:30] LABS: Basophils # 0.1 10^3/uL (0.0-0.1); Basophils % 0.4 %; Eosinophils # 0.1 10^3/uL (0.0-0.8); Eosinophils % 0.4 %; Hematocrit 32.6 % (37.0-47.0); Hemoglobin 10.1 g/dL (11.5-15.3); Lymphocytes # 1.1 10^3/uL (0.8-4.8); Lymphocytes % 9.5 %; Mean Corpuscular Hemoglobin 28.1 pg (28.0-34.0); Mean Corpuscular Volume 90.6 fL (81-99); Mean Platelet Volume 11.1 fL (7.4-10.4); Monocytes # 0.5 10^3/uL (0.2-0.9); Monocytes % 4.4 %; Neutrophils # 9.53 10^3/uL (1.8-7.7); Nucleated Red Blood Cells % 0 %; Platelet Count 204 10^3/cmm (130-400); Red Cell Distribution Width 14.8 % (12.1-15.1); White Blood Count 11.2 10^3/uL (4.0-10.0)
[2020-02-24 19:02] LABS: Procalcitonin 0.42 ng/mL (0-0.5)
[2020-02-24 19:13] LABS: Alanine Aminotransferase 21 U/L (0-33); Alkaline Phosphatase 102 IU/L (35-105); Anion Gap 22.4 (5-19); Aspartate Amino Transferase 17 U/L (0-32); Blood Urea Nitrogen 20 mg/dL (8-23); C Reactive Protein 25.8 mg/L (0.0-4.9); Calcium 9.4 mg/dL (8.5-10.5); Carbon Dioxide 20 mmol/L (22-29); Chloride 101 mmol/L (98-107); Creatinine Clr Calc Pharmacy 59.4395; Glomerular Filtration Rate 62.6 mL/min (90-130); Glucose 126 mg/dL (65-115); Osmolality Calculated 286 mOsm/kg (285-295); Potassium 4.4 mmol/L (3.5-5.1); Sodium 139 mmol/L (136-145); Total Bilirubin 0.3 mg/dL (0.15-1.2)
[2020-02-24 19:20] LABS: Urine Appearance Cloudy (CLEAR); Urine Color Yellow (Yellow)
[2020-02-24 19:21] LABS: Add Urine Microscopic? YES; Bilirubin Urine Neg (NEGATIVE); Blood Urine 3+ (Negative); Glucose Urine UA Norm (Normal); Ketones Urine Negative (Negative); Leukocyte Esterase Urine 2+ (Negative); Nitrate Urine Positive (Negative); Protein Urine 1+ (Negative); Specific Gravity, Urine 1.015 (1.005-1.030); Urobilinogen Urine Norm (Negative); pH Urine 6 (5-7)
[2020-02-24 19:22] LABS: Bacteria Urine 4+; Mucus Urine 1+; RBC Urine 15-25 /hpf (0-2); Squamous Epithelial Cell Urine 0-4 (0-5); WBC Urine >100 /hpf (0-5)
[2020-02-24 19:23] LABS: Add Urine Culture? Yes
[2020-02-24 19:30] LABS: Lactate (Lactic Acid level) 0.8 mmol/L (0.5-2.2)
[2020-02-24] MEDS: cefTRIAXone 1,000 MG in sodium chloride 0.9% (plus) 50 ML 100 MG IV (20:00)
[2020-02-24 20:03] VITALS: PULSE 103; TEMP 36.9
--- NOTE | 2020-02-24 20:45 | ED_ITS ---
HPI - Fever General: Chief Complaint: Fever Stated Complaint: FEVER Time Seen by Provider: 02/24/20 17:05 Source: EMS Mode of arrival: EMS Limitations: other (Patient is nonverbal) History of Present Illness: HPI Narrative: All of the history was obtained from EMS. The patient is nonverbal. She is however alert and is able to nod and shake her head to simple questions. She was apparently running a fever at home about 1-1/2 hours before arrival, fever was as high as 103. After that her noticed that she was having some shaking which seems like she was having some rigor. She was not post ictal on arrival so I do not believe that she was having a seizure. She has a history of a CVA with residual left sided weakness. Patient shook her head when i asked if she was hurting anywhere, also when i asked if she was short of breath. She nodded when i asked if she had a fever. MD elicited complaint: fever Review of Systems General: Reports: Other (Unobtainable due to patient being nonverbal) [facility] ED PFSH: Medical History History of diabetes mellitus Hypercholesterolemia Social History Smoking and tobacco status: former smoker Physical Exam Const: COMMON NORMALS: no acute distress, average body habitus, patient oriented x3, no limitations, healthy appearing, alert and well nourished HENMT: COMMON NORMALS: normocephalic, atraumatic and moist oral mucous membranes HEAD & SCALP: normocephalic and atraumatic Eye: COMMON NORMALS: Equal, round and reactive pupils present, EOMs intact bilaterally, conjunctivae normal and no scleral icterus CONJUNCTIVA: Yes conjunctivae normal PUPIL: Yes Equal, round and reactive pupils present Neck/C-Spine: COMMON NORMALS: full ROM, supple, no meningeal signs, no JVD and No carotid bruits Resp: COMMON NORMALS: normal respiratory effort, No retractions, No use of accessory muscles, clear to auscultation bilaterally and percussion normal AUSCULTATION: clear to auscultation bilaterally PERCUSSION: percussion normal Cardio: COMMON NORMALS: no JVD, regular rate, regular rhythm, S1 normal heart sound present, S2 normal heart sound present, No gallops present (Cardio), No clicks present (Cardio), No murmurs present (Cardio), No rub (Cardio) and Peripheral pulses 2+ throughout RATE: regular rate RHYTHM: regular rhythm HEART SOUNDS: S1 normal heart sound present and S2 normal heart sound present PERIPHERAL PULSES: Peripheral pulses 2+ throughout GI: COMMON NORMALS: Normal to inspection, nondistended, normoactive bowel sounds present, Soft to palpation, non-tender, No hepatosplenomegaly present, no masses and no bruits PALPATION: Yes Soft to palpation and Yes No hepatosplenomegaly present Extremity: COMMON NORMALS: normal to inspection, full ROM, capillary refill normal, no calf tenderness and no pedal edema Neuro: COMMON NORMALS: patient oriented x3 SENSORIUM/ORIENTATION: Yes alert MENINGEAL SIGNS: Yes no meningeal signs Skin: COMMON NORMALS: no rashes or lesions noted, no wounds, turgor normal, no jaundice, no petechiae and no mottling GENERAL SKIN EXAM: no rashes or lesions noted and turgor normal Course Reevaluation(s): Reevaluation #1: Discussed her labs and imaging with the patient and her . She has a UTI. Patient is now verbal and talking normally. She says she feels much better and her attest to that. Since her labs are not that bad with only mild leukocytosis and there is no indication for hospital admission. We will discharge her home on oral antibiotics. She voiced understanding and is in agreement with the plan Time: 20:47 Vital Signs: Vital signs: Vital Signs Temperature 98.5 F 02/24/20 20:03 Pulse Rate 103 H 02/24/20 20:03 Respiratory Rate 18 02/24/20 18:08 Blood Pressure 163/108 02/24/20 22:01 Pulse Oximetry 97 02/24/20 18:08 MDM - Fever MDM Narrative: Medical decision making narrative: 64-year-old female patient who presented with a fever. Evaluation in the emergency department showed that she has a UTI. She was given a dose of intravenous ceftriaxone and discharged home on oral medications. Her evaluation was otherwise unremarkable. Medical Records: Attestation: I reviewed the patient's medical records. Lab Data: Attestation: I reviewed the patient's lab results. Labs: Lab Results 02/24/20 02/24/20 02/24/20 Range/Units 16:00 16:00 18:09 WBC 11.2 H (4.0-10.0) 10^3/ uL RBC 3.60 L (4.1-5.3) 10^6/u L Hgb 10.1 L (11.5-15.3) g/dL Hct 32.6 L (37.0-47.0) % MCV 90.6 (81-99) fL MCH 28.1 (28.0-34.0) pg MCHC 31.0 (30.0-36.0) g/dL RDW 14.8 (12.1-15.1) % Plt Count 204 (130-400) 10^3/c mm MPV 11.1 H (7.4-10.4) fL Neut % (Auto) 85.0 % Lymph % (Auto) 9.5 % [place] % (Auto) 4.4 % Eos % (Auto) 0.4 % Baso % (Auto) 0.4 % Neut # (Auto) 9.53 H (1.8-7.7) 10^3/u L Lymph # (Auto) 1.1 (0.8-4.8) 10^3/u L [place] # (Auto) 0.5 (0.2-0.9) 10^3/u L Eos # (Auto) 0.1 (0.0-0.8) 10^3/u L Baso # (Auto) 0.1 (0.0-0.1) 10^3/u L Nucleated RBC % (a uto) 0 % Nucleated RBCs # 0.0 /100WBC Sodium 139 (136-145) mmol/L Potassium 4.4 (3.5-5.1) mmol/L Chloride 101 (98-107) mmol/L Carbon Dioxide 20 L (22-29) mmol/L Anion Gap 22.4 H (5-19) BUN 20 (8-23) mg/dL Creatinine 0.9 (0.5-0.9) mg/dL GFR Calculation 62.6 L (90-130) mL/min Glucose 126 H (65-115) mg/dL Calculated Osmolal ity 286 (285-295) mOsm/k g Lactate (0.5-2.2) mmol/L Calcium 9.4 (8.5-10.5) mg/dL Total Bilirubin 0.3 (0.15-1.2) mg/dL AST 17 (0-32) U/L ALT 21 (0-33) U/L Alkaline Phosphata se 102 (35-105) IU/L C-Reactive Protein 25.8 H (0.0-4.9) mg/L Total Protein 7.0 (6.6-8.7) g/dL Albumin 4.0 (3.5-5.2) g/dL Globulin 3.0 (1.3-4.6) g/dL Procalcitonin 0.42 (0-0.5) ng/mL Urine Color Yellow (Yellow) Urine Appearance Cloudy (CLEAR) Urine pH 6 (5-7) Ur Specific Gravit y 1.015 (1.005-1.030) Urine Protein 1+ H (Negative) Urine Glucose (UA) Norm (Normal) Urine Ketones Negative (Negative) Urine Blood 3+ H (Negative) Urine Nitrate Positive H (Negative) Urine Bilirubin Neg (NEGATIVE) Urine Urobilinogen Norm (Negative) mg/dL Ur Leukocyte Lily ase 2+ H (Negative) Urine RBC 15-25 H (0-2) /hpf Urine WBC >100 H (0-5) /hpf Ur Squamous Epith Cells 0-4 H (0-5) Amorphous Sediment Not Reportable Urine Bacteria 4+ H (NONE) Urine Mucus 1+ 09/05/20 Range/Units 19:05 WBC (4.0-10.0) 10^3/ uL RBC (4.1-5.3) 10^6/u L Hgb (11.5-15.3) g/dL Hct (37.0-47.0) % MCV (81-99) fL MCH (28.0-34.0) pg MCHC (30.0-36.0) g/dL RDW (12.1-15.1) % Plt Count (130-400) 10^3/c mm MPV (7.4-10.4) fL Neut % (Auto) % Lymph % (Auto) % [place] % (Auto) % Eos % (Auto) % Baso % (Auto) % Neut # (Auto) (1.8-7.7) 10^3/u L Lymph # (Auto) (0.8-4.8) 10^3/u L [place] # (Auto) (0.2-0.9) 10^3/u L Eos # (Auto) (0.0-0.8) 10^3/u L Baso # (Auto) (0.0-0.1) 10^3/u L Nucleated RBC % (a uto) % Nucleated RBCs # /100WBC Sodium (136-145) mmol/L Potassium (3.5-5.1) mmol/L Chloride (98-107) mmol/L Carbon Dioxide (22-29) mmol/L Anion Gap (5-19) BUN (8-23) mg/dL Creatinine (0.5-0.9) mg/dL GFR Calculation (90-130) mL/min Glucose (65-115) mg/dL Calculated Osmolal ity (285-295) mOsm/k g Lactate 0.8 (0.5-2.2) mmol/L Calcium (8.5-10.5) mg/dL Total Bilirubin (0.15-1.2) mg/dL AST (0-32) U/L ALT (0-33) U/L Alkaline Phosphata se (35-105) IU/L C-Reactive Protein (0.0-4.9) mg/L Total Protein (6.6-8.7) g/dL Albumin (3.5-5.2) g/dL Globulin (1.3-4.6) g/dL Procalcitonin (0-0.5) ng/mL Urine Color (Yellow) Urine Appearance (CLEAR) Urine pH (5-7) Ur Specific Gravit y (1.005-1.030) Urine Protein (Negative) Urine Glucose (UA) (Normal) Urine Ketones (Negative) Urine Blood (Negative) Urine Nitrate (Negative) Urine Bilirubin (NEGATIVE) Urine Urobilinogen (Negative) mg/dL Ur Leukocyte Lily ase (Negative) Urine RBC (0-2) /hpf Urine WBC (0-5) /hpf Ur Squamous Epith Cells (0-5) Amorphous Sediment Urine Bacteria (NONE) Urine Mucus Imaging Data^: CXR: Radiologist's impression: [address] [address] XRay Report Signed Patient: Blink,MarionUnit #: [id number] : 4Acct#:[id number] Age/Sex: 64 / FADM Date: 02/24/20 Loc: ERRoom/Bed: Attending Dr: Ordering Provider/Ordering MD: Nory Yancey MD, [facility] [place] Date of Service: 02/24/20 Procedure(s): XR chest 1V portable [id number] Accession Number(s): [id number] Report Number: [id number] PROCEDURE INFORMATION: Exam: XR Chest, 1 View Exam date and time: 02/24/2020 6:29 PM Age: 64 years old Clinical indication: Dyspnea and fever TECHNIQUE: Imaging protocol: XR of the chest Views: 1 view. COMPARISON: CR XR chest 1V portable [id number] 09/29/2019 11:21 PM FINDINGS: Lungs: Visualized portions of the lungs are clear. Pleural space: Unremarkable. No pleural effusion. No pneumothorax. Heart/Mediastinum: Heart is within normal limits of size. Vasculature: There are atherosclerotic changes in the aortic arch. Bones/joints: There is healing fracture of the neck of the left humerus. Degenerative changes are present in the thoracic spine. XR/XR chest 1V portable [id number] IMPRESSION: No acute infiltrate. Dictated By:Norman Gaitan Signed By:Jose Gaitan Date/Time:02/24/201910 DD/ 08 Discharge Plan Discharge Patient Disposition: Home Clinical Impression: Urinary tract infection Qualifiers: Urinary tract infection type: acute cystitis Hematuria presence: without hematuria Qualified Code(s): N30.00 - Acute cystitis without hematuria Condition: Stable Prescriptions: New ciprofloxacin HCl 500 mg tablet 500 mg PO Q12H Qty: 14 RF: 0 Continued clopidogrel 75 mg tablet 75 mg PO DAILY Qty: 90 RF: 3 lisinopril 20 mg tablet 20 mg PO DAILY Qty: 90 RF: 3 nystatin 100,000 unit/gram cream 1 applic TOPICAL TID Qty: 30 RF: 6 potassium chloride 20 mEq/15 mL liquid 20 meq PO DAILY Qty: 1200 RF: 0 metformin 1,000 mg tablet 1,000 mg PO BID Qty: 180 RF: 0 Senna Plus 8.6-50 mg tablet 1 tab PO BID Qty: 60 RF: 8 atorvastatin 80 mg tablet See Rx Instructions .ROUTE .COMPLEX Qty: 90 RF: 0 hydrocodone-acetaminophen 5-325 mg tablet 1 tab PO Q8H PRN (Reason: pain) Qty: 7 RF: 0 clonidine HCl 0.1 mg Tablet 0.1 mg PO DAILY PRN (Reason: Blood Pressure) RF: 0 clonidine HCl 0.1 mg tablet 0.1 mg PO TID Qty: 30 RF: 0 Discharge Orders: Discharge Order (Routine); Ordered 02/24/20 Ordered By: Nory Yancey Referrals: Angie Conn MD [Primary Care Provider] - 4-7 days Discharge Diet: Usual diet Discharge Activity: Resume usual activity Patient Instructions: Urinary Tract Infection - Women Activity Restrictions/Additional Instructions: Return for any new or worsening symptoms. Take the medications as prescribed. Follow-up with your primary care provider within 1 week. Drink plenty of fluids to keep well-hydrated Discharge Date/Time: 02/24/20 22:02 Coding Level of Care Code ED Publications Writer for Chg Fwd Exam Comprehensive
[2020-02-24 22:01] VITALS: BP 163/108
== END 2020-02-24 22:02 | disposition home or self-care (01) ==
PROVIDERS: Emergency Provider Family Medicine; PCP Family Medicine
DX: N30.00 Acute cystitis without hematuria (principal); E11.9 Type 2 diabetes mellitus without complications; Z87.891 Personal history of nicotine dependence
CPT/HCPCS: 12345; 36415; 71045; 80053; 81001; 83605; 84145; 85025; 86140; 87077; 87086; 87186; 96365; 99283; 99284; J0696

== ENCOUNTER → 2020-08-13 09:50 | Outpatient (BNVA) | payer MEDICARE, MEDICAID, SELFPAY | PROVIDERS: PCP Family Medicine; Visit Provider Nurse Practitioner Family | DX: Z86.39 Personal history of other endocrine, nutritional and metabolic disease (principal); E78.00 Pure hypercholesterolemia, unspecified | CPT/HCPCS: 80053; 80061; 82306; 83036; 84443 ==

== ENCOUNTER 2021-01-16 13:01 | Emergency (ER) | payer MEDICARE, MEDICAID, SELFPAY ==
[2021-01-16 13:38] VITALS: BP 140/85; PULSE 87; RESP 16; TEMP 37.2; O2SAT 96; BMI 26.2
--- NOTE | 2021-01-16 14:34 | XR_ITS ---
WS: [id number] XR chest 1V portable [id number] REASON FOR EXAM: AMS FINDINGS: Moderate tortuosity thoracic aorta without aneurysmal dilatation. Normal heart size. Poor inspiratory effort. This most likely accounts for the prominent appearance of the left hilum wit h crowding and overlapping of bone and vascular structures. No definite acute pulmonary abnormality i s identified. Old fracture of the surgical neck of the left humerus with severe deformity of the alignment of the l eft shoulder joint. Severe degenerative spondylosis in the mid and lower thoracic spine. XR/XR chest 1V portable [id number] IMPRESSION: No definite acute pulmonary abnormality. Recommend a follow-up PA and lateral c hest with good inspiration to reevaluate the left hilar region.
--- NOTE | 2021-01-16 14:34 | CT_ITS ---
WS: [id number] CT HEAD TECHNIQUE: Noncontrast CT of the head obtained from the skullbase to the vertex. CLINICAL INFORMATION: AMS COMPARISON: July 01, 2019 DLP: 801.[address] scans at [facility] use at least one of these dose optimization techniques: automat ed exposure control; mA and/or kV adjustment per patient size (includes targeted exams where dose is matched to clinical indication); or iterative reconstruction. FINDINGS: No evidence of intracranial hemorrhage or mass effect. Ventricular system and basal cisterns are thompson nt. Extensive chronic right MCA territory infarct with encephalomalacia and volume loss right cerebra l hemisphere. Ex vacuo dilatation of the right lateral ventricle and right temporal horn. Dystrophic calcifications involving the right cerebral cortex. Moderate small vessel changes. Moderate parenchymal volume loss. Chronic lacunar infarcts in the left periventricular white matter and basal ganglia. Chronic lacunar infarct right cerebellum. Paranasal sinuses are well aerated. Mastoid air cells are well aerated. Mucosal thickening right mast oid tip. CT/CT head wo con* [id number] IMPRESSION: 1. No evidence of intracranial hemorrhage or mass effect. 2. Chronic infarct right MCA territory with encephalomalacia and volume loss. Dystrophic calcification right cerebral cortex. Ex vacuo dilatation right later al ventricle and temporal horn. This is unchanged from previous. 3. Chronic lacunar infarcts left periventricular white matter and basal gangli a. Chronic lacunar infarct right cerebellum. 4. No acute intracranial findings.
[2021-01-16 16:55] LABS: Basophils # 0.1 10^3/uL (0.0-0.1); Basophils % 0.6 %; Eosinophils # 0.2 10^3/uL (0.0-0.8); Eosinophils % 1.5 %; Hematocrit 38.9 % (37.0-47.0); Hemoglobin 12.2 g/dL (11.5-15.3); Lymphocytes # 2.1 10^3/uL (0.8-4.8); Lymphocytes % 20.5 %; Mean Corpuscular HGB Conc 31.4 g/dL (30.0-36.0); Mean Corpuscular Hemoglobin 27.9 pg (28.0-34.0); Mean Platelet Volume 10.9 fL (7.4-10.4); Monocytes # 0.5 10^3/uL (0.2-0.9); Neutrophils # 7.46 10^3/uL (1.8-7.7); Neutrophils % 72.1 %; Nucleated Red Blood Cells % 0 %; Platelet Count 246 10^3/cmm (130-400); Red Blood Count 4.37 10^6/uL (4.1-5.3); Red Cell Distribution Width 13.8 % (12.1-15.1); White Blood Count 10.3 10^3/uL (4.0-10.0)
[2021-01-16 17:04] LABS: Alanine Aminotransferase 12 U/L (0-33); Alkaline Phosphatase 94 IU/L (35-105); Anion Gap 17.2 (5-19); Aspartate Amino Transferase 12 U/L (0-32); Blood Urea Nitrogen 16 mg/dL (8-23); Calcium 9.9 mg/dL (8.5-10.5); Carbon Dioxide 25 mmol/L (22-29); Chloride 104 mmol/L (98-107); Globulin 3.3 g/dL (1.3-4.6); Glomerular Filtration Rate 71.5 mL/min (90-130); Glucose 97 mg/dL (65-115); Osmolality Calculated 295 mOsm/kg (285-295); Potassium 4.2 mmol/L (3.5-5.1); Sodium 142 mmol/L (136-145); Total Bilirubin 0.3 mg/dL (0.15-1.2); Total Protein 7.3 g/dL (6.6-8.7)
== END 2021-01-16 19:00 | disposition left against medical advice (07) ==
PROVIDERS: Physician Assistant; Emergency Provider Family Medicine; PCP Family Medicine
DX: R41.82 Altered mental status, unspecified (principal); I69.854 Hemiplegia and hemiparesis following other cerebrovascular disease affecting left non-dominant side; I69.898 Other sequelae of other cerebrovascular disease; R47.89 Other speech disturbances; Z53.21 Procedure and treatment not carried out due to patient leaving prior to being seen by health care provider
CPT/HCPCS: 36415; 70450; 71045; 80053; 83605; 85025; 87040

== ENCOUNTER → 2021-08-18 12:26 | Outpatient (BNVA) | payer MEDICARE, MEDICAID, SELFPAY | PROVIDERS: PCP Family Medicine; Visit Provider Nurse Practitioner Family | DX: E55.9 Vitamin D deficiency, unspecified (principal); I10 Essential (primary) hypertension; E78.00 Pure hypercholesterolemia, unspecified; Z86.39 Personal history of other endocrine, nutritional and metabolic disease | CPT/HCPCS: 80053; 80061; 82306; 83036; 84443; 85025 ==

== ENCOUNTER 2022-02-03 21:33 | Inpatient (IN) | payer MEDICARE, MEDICAID, SELFPAY ==
[2022-02-03 21:37] VITALS: BMI 25.7
--- NOTE | 2022-02-03 21:37 | XRR_ITS ---
PROCEDURE INFORMATION: Exam: XR Chest Exam date and time: 02/03/2022 10:17 PM Age: 66 years old Clinical indication: Fever TECHNIQUE: Imaging protocol: Radiologic exam of the chest. Views: 1 view. COMPARISON: CR XR chest 1V portable [id number] 01/16/2021 2:48 PM FINDINGS: Lungs: Visualized portions of the lungs are clear. Pleural spaces: Unremarkable. No pleural effusion. No pneumothorax. Heart/Mediastinum: Heart is within normal limits of size. Bones/joints: Unremarkable. XR/XR chest 1V portable [id number] IMPRESSION: No acute infiltrate.
--- NOTE | 2022-02-03 21:38 | ECG_ITS ---
[facility] Test Date: 2022-02-03 Pat Name: Shannan Morin Department: Room: Gender: Female Header Machine Operator: : [id number] Requested By: Rita Munoz Order Number: [id number] Fracisco MD: Peyman Victor M.D. Measurements Intervals [place] Rate: 133 P: 59 MA: 141 QRS: 44 QRSD: 82 T: 20 QT: 305 QTc: 455 Interpretive Statements SINUS TACHYCARDIA Compared to ECG 07/01/2019 12:01:28 Sinus rhythm no longer present ST (T wave) deviation no longer present Electronically Signed On 02-04-2022 17:19:52 CDT by Peyman Victor M.D. [id number]
[2022-02-03 22:01] LABS: Blood Gas Sample Site Radial, right; Blood Gas Sample Type Arterial
[2022-02-03 22:03] VITALS: BP 131/71; PULSE 134; RESP 28; TEMP 39.1; O2SAT 94
[2022-02-03 22:03] LABS: ABG PCO2 24.9 mmHg (35-45); ABG PH Result 7.49 (7.35-7.45); Arterial Blood Gas Hematocrit 29.2 % (37-47); Base Excess ABG -3.3 mmol/L (-2.0-2.0); PO2 ABG 68.2 mmHg (80.0-100.0)
[2022-02-03 22:08] LABS: Basophils % 0.1 %; Hematocrit 28.1 % (37.0-47.0); Hemoglobin 9.1 g/dL (11.5-15.3); Lymphocytes # 0.3 10^3/uL (0.8-4.8); Lymphocytes % 2.5 %; Mean Corpuscular HGB Conc 32.4 g/dL (30.0-36.0); Mean Corpuscular Hemoglobin 28.5 pg (28.0-34.0); Mean Corpuscular Volume 88.1 fl (81-99); Mean Platelet Volume 10.3 fL (7.4-10.4); Monocytes # 0.1 10^3/uL (0.2-0.9); Monocytes % 0.8 %; Neutrophils # 10.29 10^3/uL (1.8-7.7); Neutrophils % 95.6 %; Nucleated Red Blood Cells % 0 %; Platelet Count 216 10^3/cmm (130-400); Red Blood Count 3.19 10^6/uL (4.1-5.3); Red Cell Distribution Width 14.4 % (12.1-15.1); White Blood Count 10.8 10^3/uL (4.0-10.0)
[2022-02-03] MEDS: acetaminophen 650 mg Supp PR (22:16)
[2022-02-03] MEDS: sodium chloride 0.9% 1,000 ML 999 ML IV (22:16)
--- NOTE | 2022-02-03 22:16 | ED_ITS ---
HPI - General Adult General: Chief complaint: General Medical Stated complaint: Fever Time Seen by Provider: 02/03/22 21:33 Source: EMS Mode of arrival: EMS Limitations: altered mental status and physical limitation History of Present Illness: 66-year-old female has a history of a stroke is left her bedbound along with me. Patient lives at home with multiple family members states today she has been febrile having some increased respiratory. No history is available from patient due to her altered mental status from her stroke she does have a temperature 102.4 she has had no vomiting or diarrhea no cough. Review of Systems General: Reports: ROS unobtainable due to mental status PFSH ED PFSH: Medical History (Updated 08/16/20 @ 19:59 by RAISA Morin) Essential hypertension H/O: stroke with residual effects History of diabetes mellitus Hypercholesterolemia On statin therapy Paralysis due to old stroke Social History Smoking and tobacco status: former smoker Physical Exam Const: COMMON NORMALS: negative for patient oriented x3 EXAM LIMITATIONS: altered mental status HENMT: COMMON NORMALS: normocephalic and atraumatic HEAD & SCALP: normocephalic and atraumatic THROAT: posterior oropharynx normal Eye: COMMON NORMALS: Equal, round and reactive pupils present and conjunctivae normal CONJUNCTIVA: Yes conjunctivae normal PUPIL: Yes Equal, round and reactive pupils present Neck/C-Spine: COMMON NORMALS: full ROM Chest: COMMONS NORMALS: normal inspection of the chest Resp: COMMON NORMALS: normal respiratory effort and clear to auscultation bilaterally AUSCULTATION: clear to auscultation bilaterally Cardio: COMMON NORMALS: regular rate and regular rhythm RATE: regular rate RHYTHM: regular rhythm GI: COMMON NORMALS: Normal to inspection, nondistended, normoactive bowel soun ds present INSPECTION: Yes normal to inspection Extremity: COMMON NORMALS: normal to inspection Neuro: COMMON NORMALS: negative for patient oriented x3 Psych: COMMON NORMALS: negative for mental status grossly normal Skin: COMMON NORMALS: no rashes or lesions noted GENERAL SKIN EXAM: no rashes or lesions noted Course Vital Signs: Vital signs: Vital Signs Temperature 103.6 F H 02/03/22 23:45 Pulse Rate 133 H 02/03/22 23:45 Respiratory Rate 22 H 02/03/22 23:45 Blood Pressure 154/78 02/03/22 23:45 Pulse Oximetry 95 02/03/22 23:45 Oxygen Delivery Me thod 02/03/22 22:03 MDM - General Adult Medical Decision Making Patient presents here with fever likely sepsis her blood pressure here has been stable patient given IV fluids has a likely UTI patient started on IV antibiotics she is pending CT scan admitted to ICU to hospitalist. Lab Data : 02/03/22 21:51 02/03/22 21:51 Radiology Impressions Chest X-Ray 02/03/22 21:37 IMPRESSION: No acute infiltrate. Abdomen/Pelvis CT 02/03/22 23:00 IMPRESSION: Left nephrolithiasis with obstructing stone at the left ureteropelvic junction. Laboratory Results WBC 10.8 10^3/uL (4.0-10.0) H 02/03/22 21:51 RBC 3.19 10^6/uL (4.1-5.3) L 02/03/22 21:51 Hgb 9.1 g/dL (11.5-15.3) L 02/03/22 21:51 Hct 28.1 % (37.0-47.0) L 02/03/22 21:51 MCV 88.1 fl (81-99) 02/03/22 21:51 MCH 28.5 pg (28.0-34.0) 02/03/22 21:51 MCHC 32.4 g/dL (30.0-36.0) 02/03/22 21:51 RDW 14.4 % (12.1-15.1) 02/03/22 21:51 Plt Count 216 10^3/cmm (130-400) 02/03/22 21:51 MPV 10.3 fL (7.4-10.4) 02/03/22 21:51 Neut % (Auto) 95.6 % 02/03/22 21:51 Lymph % (Auto) 2.5 % 02/03/22 21:51 [place] % (Auto) 0.8 % 02/03/22 21:51 Eos % (Auto) 0.0 % 02/03/22 21:51 Baso % (Auto) 0.1 % 02/03/22 21:51 Neut # (Auto) 10.29 10^3/uL (1.8-7.7) H 02/03/22 21:51 Lymph # (Auto) 0.3 10^3/uL (0.8-4.8) L 02/03/22 21:51 [place] # (Auto) 0.1 10^3/uL (0.2-0.9) L 02/03/22 21:51 Eos # (Auto) 0.0 10^3/uL (0.0-0.8) 02/03/22 21:51 Baso # (Auto) 0.0 10^3/uL (0.0-0.1) 02/03/22 21:51 Nucleated RBC % (auto) 0 % 02/03/22 21:51 Nucleated RBCs # 0.0 /100WBC 02/03/22 21:51 Specimen Type Arterial 02/03/22 21:49 Sample Site Radial, right 02/03/22 21:49 ABG pH 7.49 (7.35-7.45) H 02/03/22 21:49 ABG pCO2 24.9 mmHg (35-45) L 02/03/22 21:49 ABG pO2 68.2 mmHg (80.0-100.0) L 02/03/22 21:49 ABG HCO3 19.0 mmol/L (22-26) L 02/03/22 21:49 ABG Base Excess -3.3 mmol/L (-2.0-2.0) L 02/03/22 21:49 Ashwin Test N/a 02/03/22 21:49 Hematocrit 29.2 % (37-47) L 02/03/22 21:49 O2 Delivery Device None 02/03/22 21:49 Electrical Intern ID Hensa 02/03/22 21:49 Sodium 139 mmol/L (136-145) 02/03/22 21:51 Potassium 4.0 mmol/L (3.5-5.1) 02/03/22 21:51 Chloride 102 mmol/L (98-107) 02/03/22 21:51 Carbon Dioxide 18 mmol/L (22-29) L 02/03/22 21:51 Anion Gap 23.0 (5-19) H 02/03/22 21:51 BUN 25 mg/dL (8-23) H 02/03/22 21:51 Creatinine 1.5 mg/dL (0.5-0.9) H 02/03/22 21:51 GFR Calculation 34.5 mL/min (90-130) L 02/03/22 21:51 Glucose 135 mg/dL (65-115) H 02/03/22 21:51 Calculated Osmolality 294 mOsm/kg (285-295) 02/03/22 21:51 Lactate 5.6 mmol/L (0.5-2.2) H* 02/03/22 21:51 Calcium 8.3 mg/dL (8.5-10.5) L 02/03/22 21:51 Magnesium 1.1 mg/dL (1.7-2.3) L 02/03/22 21:51 Total Bilirubin 0.3 mg/dL (0.15-1.2) 02/03/22 21:51 AST 29 U/L (0-32) 02/03/22 21:51 ALT 24 U/L (0-33) 02/03/22 21:51 Alkaline Phosphatase 159 U/L (35-105) H 02/03/22 21:51 C-Reactive Protein 191.9 mg/L (0.0-4.9) H 02/03/22 21:51 NT-Pro-B Natriuret Pep 1812 pg/mL (0-125) H 02/03/22 21:51 Total Protein 5.5 g/dL (6.6-8.7) L 02/03/22 21:51 Albumin 2.7 g/dL (3.5-5.2) L 02/03/22 21:51 Globulin 2.8 g/dL (1.3-4.6) 02/03/22 21:51 Urine Color Yellow (Yellow) 02/03/22 22:00 Urine Appearance Sl hazy (CLEAR) 02/03/22 22:00 Urine pH 5 (5-7) 02/03/22 22:00 Ur Specific [place] 1.025 (1.005-1.030) 02/03/22 22:00 Urine Protein 2+ (Negative) H 02/03/22 22:00 Urine Glucose (UA) Trace (Normal) H 02/03/22 22:00 Urine Ketones 1+ (Negative) H 02/03/22 22:00 Urine Blood 3+ (Negative) H 02/03/22 22:00 Urine Nitrate Negative (Negative) 02/03/22 22:00 Urine Bilirubin Neg (Negative) 02/03/22 22:00 Urine Urobilinogen Norm mg/dL (Negative) 02/03/22 22:00 Ur Leukocyte Esterase 1+ (Negative) H 02/03/22 22:00 Urine RBC 80-100 /hpf (0-2) H 02/03/22 22:00 Urine WBC Too numerous to cnt /hpf (0-5) H 02/03/22 22:00 Ur Squamous Epith Cells 5-10 /hpf (0-5) H 02/03/22 22:00 Ur Renal Epithelial Cell 0-4 /hpf 02/03/22 22:00 Amorphous Sediment Not Reportable 02/03/22 22:00 Urine Bacteria 2+ /hpf (NONE) H 02/03/22 22:00 Fine Granular Casts 0-4 /lpf H 02/03/22 22:00 EKG Data EKG 1: I personally reviewed and interpreted this EKG as follows: EKG interpretation date: 02/03/22 EKG interpretation time: 21:48 Interpretation: sinus tach hr [address] or t wave abnormalities qrs 82 qtc 383 Computer generated interpretation: Chest X-Ray 02/03/22 21:37 IMPRESSION: No acute infiltrate. Abdomen/Pelvis CT 02/03/22 23:00 IMPRESSION: Left nephrolithiasis with obstructing stone at the left ureteropelvic junction. Critical Care Time Critical Care Time: Critical Care Time: Yes Total Critical Care Time: 40 Attestation: The high probability of a clinically significant, sudden or life threatening deterioration of the patient's du system(s) required my full and direct attention, intervention and personal management. The critical care time is as shown. This time is in addition to time spent performing any reported procedures but includes the following: [x] Data and vital sign review and interpretation [x] Patient assessment, examination and intervention [x] Documentation [x] Medication orders and management Discharge Plan Discharge Admit Provider: Neto Cohen Condition: Stable Coding Level of Care Code ED Dehydrogenation Operator for Chg Fwd Exam Comprehensive
[2022-02-03 22:30] LABS: Bilirubin Urine Neg (Negative); Blood Urine 3+ (Negative); Glucose Urine UA Trace (Normal); Ketones Urine 1+ (Negative); Nitrate Urine Negative (Negative); Protein Urine 2+ (Negative); Specific Gravity, Urine 1.025 (1.005-1.030); Urine Appearance SL Hazy (CLEAR); Urine Color Yellow (Yellow); Urobilinogen Urine Norm (Negative); pH Urine 5 (5-7)
[2022-02-03 22:31] LABS: Add Urine Microscopic? YES; Bacteria Urine 2+ /hpf; Leukocyte Esterase Urine 1+ (Negative); RBC Urine 80-100 /hpf (0-2); Renal Epithelial Cells Urine 0-4 /hpf; WBC Urine TOO NUMEROUS TO CNT /hpf (0-5)
[2022-02-03 22:32] LABS: Add Urine Culture? Yes; Fine Granular Casts Urine 0-4 /lpf
[2022-02-03 22:38] LABS: Alanine Aminotransferase 24 U/L (0-33); Albumin Level 2.7 g/dL (3.5-5.2); Alkaline Phosphatase 159 U/L (35-105); Aspartate Amino Transferase 29 U/L (0-32); Blood Urea Nitrogen 25 mg/dL (8-23); C Reactive Protein 191.9 mg/L (0.0-4.9); Calcium 8.3 mg/dL (8.5-10.5); Carbon Dioxide 18 mmol/L (22-29); Chloride 102 mmol/L (98-107); Globulin 2.8 g/dL (1.3-4.6); Glomerular Filtration Rate 34.5 mL/min (90-130); Glucose 135 mg/dL (65-115); Magnesium 1.1 mg/dL (1.7-2.3); NT Pro B Type Natriuretic Pept 1812 pg/mL (0-125); Osmolality Calculated 294 mOsm/kg (285-295); Sodium 139 mmol/L (136-145); Total Bilirubin 0.3 mg/dL (0.15-1.2); Total Protein 5.5 g/dL (6.6-8.7)
[2022-02-03 22:40] LABS: Lactate (Lactic Acid level) 5.6 mmol/L (0.5-2.2)
--- NOTE | 2022-02-03 22:40 | PC.NURSE ---
1 liter normal saline given by EMS
[2022-02-03 22:50] LABS: Slide Review Slide Review Perform
--- NOTE | 2022-02-03 23:00 | CTR_ITS ---
PROCEDURE INFORMATION: Exam: CT Abdomen And Pelvis Without Contrast Exam date and time: 02/03/2022 11:15 PM Age: 66 years old Clinical indication: Other: Lactate of 5.6/hematuria; Patient HX: Lactate of 5.6/ microhematuria. TECHNIQUE: Imaging protocol: Computed tomography of the abdomen and pelvis without contrast. Radiation optimization: All CT scans at this facility use at least one of these dose optimization techniques: automated exposure control; mA and/or kV adjustment per patient size (includes targeted exams where dose is matched to clinical indication); or iterative reconstruction. COMPARISON: CR (CHEST, ) 02/03/2022 10:17 PM RADIATION DOSE METRICS: Total DLP (mGy-cm): 606.03 FINDINGS: Limitations: The absence of intravenous contrast lessens the sensitivity of this study for solid organ abnormalities. Study somewhat limited due to streak artifact created by the patient being scanned with the arms at the sides. Pleural spaces: There is small left pleural effusion. Liver: There is no focal abnormality within the liver. Gallbladder and bile ducts: Normal. No calcified stones. No ductal dilation. Pancreas: The pancreas is normal. Spleen: The spleen is normal. Adrenal glands: The adrenal glands are normal. Kidneys and ureters: The right kidney is normal. There is no evidence of right hydronephrosis. There is no stone in the right ureter. There are multiple left renal collecting system calcifications. There is mild enlargement of the left kidney and perinephric stranding. There is moderate left hydronephrosis. There is an oval 5 x 10 mm sized stone obstructing the left ureterovesical junction. Stone measures approximately 800 Hounsfield units and is not seen on the adult education professional image. Stomach and bowel: There is no evidence of colitis/diverticulitis. Appendix: A normal appendix is identified. Intraperitoneal space: There is no evidence of free intraperitoneal fluid. Vasculature: The aorta demonstrates moderate atherosclerotic calcification. There is no evidence of an abdominal aortic aneurysm. Lymph nodes: There is no evidence of lymphadenopathy. Urinary bladder: Unremarkable as visualized. Reproductive: Unremarkable as visualized. Bones/joints: Degenerative changes in the lumbar spine. No acute fracture. Soft tissues: Unremarkable. Other findings: There is some nonspecific edema in the presacral space of uncertain significance. CT/CT abdomen pelvis wo con [id number] IMPRESSION: Left nephrolithiasis with obstructing stone at the left ureteropelvic junction.
[2022-02-03] MEDS: piperacillin-tazobactam 3.375 GM in sodium chloride 0.9% (plus) 50 ML IV (23:09)
[2022-02-03] MEDS: sodium chloride 0.9% 500 ML 999 ML IV (23:09)
[2022-02-03] MEDS: vancomycin 1,000 MG in sodium chloride 0.9% 250 ML 250 MG IV (23:30)
[2022-02-03 23:45] VITALS: BP 154/78; PULSE 133; RESP 22; TEMP 39.8; O2SAT 95
[2022-02-04] VITALS (92 sets, daily range): BP systolic 78–180; BP diastolic 49–150; PULSE 76–139; RESP 13–32; TEMP 36.6–36.9; O2SAT 65–100; BMI 28.8
--- NOTE | 2022-02-04 00:22 | PC.NURSE ---
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 Is able to eat and drink without difficulty. Able to move right upper extremity.
--- NOTE | 2022-02-04 00:38 | P.HP_ITS ---
Providers/Chief Complaint Admitting Physician: Neto Cohen MD Primary Care Provider: Angie Conn MD Chief Complaint: Fever History of Present Illness Shannan Morin is a 66 year old female with a past medical history of right-sided CVA with left-sided hemiparesis, bedbound, able to feed herself, have baseline does not communicate well with family members, can feed herself, hypertension, type 2 diabetes mellitus, hypercholesteremia who presents [facility] due to decreased appetite, fevers, diffuse shakes, increased confusion. Most of the history was provided by at bedside, tells me that he is she has a history of UTIs, no history of nephrolithiasis, today, she was not acting appropriately, increasingly confused, decreased appetite, she had an episode of nausea, she she is less vocal she has had fevers, she is a diffuse shaking., No cough reported. She has not vocalize or localized any pain complaints. No falls. No history of COVID-19. Has not been vaccinated for COVID Review of Systems General: Reports: ROS unobtainable due to mental status Medications/Allergies Home Medications Medication Instructions Recorded Confirmed Last Taken Type clonidine HCl 0.1 mg tablet 0.1 mg PO TID #30 tabs 07/01/19 08/18/21 Unknown Rx atorvastatin 80 mg tablet See Rx Instructions .Route 05/22/21 08/18/21 Unknown Rx .COMPLEX #15 ea clopidogrel 75 mg tablet 75 mg PO DAILY #90 tabs 08/20/21 Unknown Rx nystatin 100,000 unit/gram topical See Rx Instructions .Route 08/22/21 Unknown Rx cream .COMPLEX #30 grams metformin 500 mg tablet 500 mg PO BID 30 days #60 ea 09/29/21 Unknown Rx lisinopril 20 mg tablet 20 mg PO DAILY #90 tabs 11/20/21 Unknown Rx sennosides 8.6 mg-docusate sodium 1 tab PO BID #60 tabs 01/21/22 Unknown Rx 50 mg tablet (Senna Plus) Allergies Allergy/AdvReac Type Severity Reaction Status Date / Time No Known Allergies Allergy Verified 08/18/21 09:22 PFSH Acute PFSH: Medical History Essential hypertension H/O: stroke with residual effects History of diabetes mellitus Hypercholesterolemia On statin therapy Paralysis due to old stroke Social History Smoking and tobacco status: former smoker Vitals/I&O/Wt Last Vital Signs Temp 103.6 F H 02/03/22 23:45 Pulse 139 H 02/04/22 00:35 Resp 29 H 02/04/22 00:35 BP 175/91 02/04/22 00:35 Pulse Ox 95 02/04/22 00:35 O2 Del Method 02/03/22 22:03 02/03/22 02/03/22 02/04/22 14:59 22:59 06:59 Intake Total 1550 / 1550 Balance 1550 / 1550 Weight last 48 hrs Weight 68.039 kg Physical Exam Const: COMMON NORMALS: no acute distress EXAM LIMITATIONS: altered mental status OTHER: At baseline, has very limited communication HENMT: COMMON NORMALS: normocephalic HEAD & SCALP: normocephalic Neck/C-Spine: COMMON NORMALS: no JVD Resp: COMMON NORMALS: normal respiratory effort, No retractions, No use of accessory muscles and clear to auscultation bilaterally AUSCULTATION: clear to auscultation bilaterally Cardio: COMMON NORMALS: no JVD, regular rate, regular rhythm, S1 normal heart sound present and S2 normal heart sound present RATE: tachycardic RHYTHM: regular rhythm HEART SOUNDS: S1 normal heart sound present and S2 normal heart sound present GI: COMMON NORMALS: Normal to inspection, nondistended, normoactive bowel sounds present, Soft to palpation, non-tender, No hepatosplenomegaly present, no masses and no bruits PALPATION: Yes Soft to palpation and Yes No hepatosplenomegaly present Extremity: COMMON NORMALS: capillary refill normal, no clubbing, cyanosis or edema, no calf tenderness and no pedal edema Neuro: OTHER: Difficult to do neurologic testing Urinary Catheter Management: Barraza: Cath Placed During This Visit: yes Urinary Catheter Date of Insertion: 02/03/22 Urinary Catheter Time of Insertion: 22:18 Data : 02/03/22 21:51 02/03/22 21:51 Micro: Microbiology 02/03/22 22:13 Blood Culture - Preliminary Blood SPECIMEN COLLECTED 02/03/22 22:05 Blood Culture - Preliminary Blood SPECIMEN COLLECTED A&P Assessment and plan (1) Acute encephalopathy: Status: Acute (2) Sepsis: Status: Acute (3) Obstruction of left ureteropelvic junction (UPJ) due to stone: Status: Acute (4) UTI (urinary tract infection): Status: Acute (5) Lactic acidosis: Status: Acute (6) Hypomagnesemia: Status: Acute (7) Acute kidney injury: Status: Acute Plan Acute encephalopathy -Secondary to left UPJ stone with obstructive uropathy, UTI, lactic acidosis, acute kidney injury Plan -Admit to ICU -Keep n.p.o. -IV fluids -Monitor lactic acid every 6 hours -Barraza catheter in place -Vancomycin, Zosyn -Tylenol for fevers -Urine cultures, blood cultures -Monitor blood pressures closely -Levophed as needed to maintain MAP more than 65 -Replace magnesium -Type 2 diabetes mellitus, low-dose sliding scale -Hold Plavix -Dr. Guy has been consulted by ER -Full code -SCDs for DVT prophylaxis, Lovenox on hold and plans for surgery Attestations Medical Necessity Statement*: Patient requires hospitalization for UTI, sepsis, left UPJ stone, obstructive uropathy, critical care time spent 35 minutes Coding Level of Care Code Acute Workday Manager for g Fwd Diagnoses Acute encephalopathy G93.40 Sepsis A41.9 Obstruction of left ureteropelvic junction (UPJ) due to stone N20.1 UTI (urinary tract infection) N39.0 Lactic acidosis E87.2 Hypomagnesemia E83.42 Acute kidney injury N17.9 Sepsis Event Note Evaluation Current stage of sepsis: severe sepsis Possible source: genitourinary Focused Exam Vital Signs Temp Pulse Resp BP Pulse Ox O2 Del Method 02/04/22 00:35 139 H 29 H 175/91 95 02/03/22 23:45 103.6 F H 133 H 22 H 154/78 95 02/03/22 22:03 102.4 F H 134 H 28 H 131/71 94 Room Air Cardiovascular exam: Present tachycardia Skin exam: flushed and pale Date exam was performed: 02/04/22 Time exam was performed: 00:44
[2022-02-04] MEDS: acetaminophen 1,000 MG/100 ML PIGGYBACK 400 MG IV (00:48)
[2022-02-04 00:52] LABS: INR 1.23 (0.8-1.2)
--- NOTE | 2022-02-04 00:55 | P.CONIM_ITS ---
Providers/Reason For Consult Consulting Physician/Specialty*: Urology/Guy Reason for Consult*: Obstructive left pyelonephritis Requesting Physician: Dr. villeda Attending Physician: Dr. Tate Primary Care Provider: Angie Conn MD History of Present Illness History of Present Illness Shannan Morin is a 66 year old female who I saw for the first time tonight in the emergency department request of Dr. Munoz. She is accompanied by her who is providing the history. Was taken to the hospital for change in her baseline function (post CVA and not really very communicative.), Increasing confusion nausea and decreased ability to be vocal. Has had rigors and chills. Work-up revealed an elevated white count of 21,000, too numerous to count white cells, and a CT scan showing a 10 mm obstructing left UPJ stone and additional renal calculi. Lactate was 5. Recommended taken to the operating room emergently for cystoscopy and stent placement. Also reviewed the possibility that the stone may not be accessible in a retrograde fashion requiring transfer interventional radiology and percutaneous nephrostomy tube in that situation. Explained in detail to the these findings and the rationale for this emergent approach and he agreed. Review of Systems General: Reports: ROS unobtainable due to medical condition and ROS unobtainab le due to mental status Medications/Allergies Home Medications Medication Instructions Recorded Confirmed Last Taken Type clonidine HCl 0.1 mg tablet 0.1 mg PO TID #30 tabs 07/01/19 08/18/21 Unknown Rx atorvastatin 80 mg tablet See Rx Instructions .Route 05/22/21 08/18/21 Unknown Rx .COMPLEX #15 ea clopidogrel 75 mg tablet 75 mg PO DAILY #90 tabs 08/20/21 Unknown Rx nystatin 100,000 unit/gram topical See Rx Instructions .Route 08/22/21 Unknown Rx cream .COMPLEX #30 grams metformin 500 mg tablet 500 mg PO BID 30 days #60 ea 09/29/21 Unknown Rx lisinopril 20 mg tablet 20 mg PO DAILY #90 tabs 11/20/21 Unknown Rx sennosides 8.6 mg-docusate sodium 1 tab PO BID #60 tabs 01/21/22 Unknown Rx 50 mg tablet (Senna Plus) Allergies Allergy/AdvReac Type Severity Reaction Status Date / Time No Known Allergies Allergy Verified 08/18/21 09:22 Current Medications Generic Name Dose Route Start Last Admin Trade Name Fidencio PRN Reason Stop Dose Admin Acetaminophen 1,000 mg in 100 mls @ 400 mls/hr 02/04/22 00:43 02/04/22 00:48 Acetaminophen IV 02/04/22 00:57 400 mls/hr ONCE ONE Administration PFSH Acute PFSH: Medical History (Updated 02/04/22 @ 01:07 by Ace Guy MD) Essential hypertension H/O: stroke with residual effects History of diabetes mellitus Hypercholesterolemia On statin therapy Paralysis due to old stroke Social History Smoking and tobacco status: former smoker Vitals/I&O/Wt Last Vital Signs Temp 103.6 F H 02/03/22 23:45 Pulse 139 H 02/04/22 00:35 Resp 29 H 02/04/22 00:35 BP 175/91 02/04/22 00:35 Pulse Ox 95 02/04/22 00:35 O2 Del Method 02/03/22 22:03 02/03/22 02/03/22 02/04/22 14:59 22:59 06:59 Intake Total 1800 / 1800 Balance 1800 / 1800 Weight last 48 hrs Weight 150 lb Physical Exam Const: COMMON NORMALS: no acute distress EXAM LIMITATIONS: altered mental status HENMT: COMMON NORMALS: normocephalic HEAD & SCALP: normocephalic Eye: COMMON NORMALS: negative for no scleral icterus Neck/C-Spine: OTHER: Normal range of motion Lymph: LYMPHATIC: no lymphadenopathy noted and no lymphedema noted Resp: COMMON NORMALS: normal respiratory effort and clear to auscultation bilaterally AUSCULTATION: clear to auscultation bilaterally Cardio: COMMON NORMALS: regular rate and regular rhythm RATE: regular rate and tachycardic RHYTHM: regular rhythm GI: COMMON NORMALS: Normal to inspection, nondistended, normoactive bowel sounds present, non-tender, no masses and no bruits : OTHER: Normal external female genitalia urethra urethral meatus. No obvious vaginal discharge or probe Extremity: COMMON NORMALS: capillary refill normal, no clubbing, cyanosis or edema, no calf tenderness and no pedal edema Psych: OTHER: Noncommunicative. Primarily post stroke with exacerbation with this illness. Urinary Catheter Management: Barraza: Cath Placed During This Visit: yes Urinary Catheter Date of Insertion: 02/03/22 Urinary Catheter Time of Insertion: 22:18 Data : 02/03/22 21:51 02/03/22 21:51 Micro: Microbiology 02/03/22 22:13 Blood Culture - Preliminary Blood SPECIMEN COLLECTED 02/03/22 22:05 Blood Culture - Preliminary Blood SPECIMEN COLLECTED A&P Assessment and plan (1) Obstructive pyelonephritis: Status: Acute (2) Lactic acidosis: Status: Acute (3) Acute encephalopathy: Status: Acute (4) History of diabetes mellitus: Status: Acute (5) Sepsis: Status: Acute Coding Level of Care Code Acute Public Health Dietitian for [facility] Fwd Exam Comprehensive Diagnoses Obstructive pyelonephritis N11.1 Lactic acidosis E87.2 Acute encephalopathy G93.40 History of diabetes mellitus Z86.39 Sepsis A41.9
[2022-02-04 01:04] LABS: Creatine Phosphokinase 440 U/L (26-192)
--- NOTE | 2022-02-04 01:06 | PC.NURSE ---
Critical lab, CK 440. Dr Munoz notified
--- NOTE | 2022-02-04 01:14 | P.ANESASSM_ITS ---
Pre-Anesthetic Assessment Height/Weight: Height 1.63 m Weight 68.039 kg Temp Pulse Resp BP Pulse Ox O2 Del Method 103.6 F H 139 H 29 H 175/91 95 02/03/22 23:45 02/04/22 00:35 02/04/22 00:35 02/04/22 00:35 02/04/22 00:35 02/03/22 22:03 Operation Date: 02/04/22 01:05 Proposed Procedures p Cystoscopy(Not Applicable) - Ace Guy MD s Ureteral Stent Placement(Not Applicable) - Ace Guy MD Familial anesthetic complications: None Was Beta Pearl taken within 24 hours: N/A Was Clonidine taken within 24 hours: N/A Last intake: per , patient hasn't eaten or drank since lunchtime yesterday at around noon Social No alcohol and No tobacco Exam alert, oriented x 3, clear to auscultation bilaterally and regular rate & rhythm Airway Dentition: full Pulmonary None reported CV/HEM Hypertension EVA Hepatic None reported GI None reported Metabolic Diabetes Mellitus [facility] [place] L hemiplegia Neuropsych Cerebrovascular Accident (Nonverbal and L hemiparalysis as residual deficit - occurred several years ago, on plavix) Anesthetic Plan ASA status: 4E Anesthesia: Choice Risk of > 500 ml blood loss (7ml/kg in children): No Medications/Allergies Home Medications Medication Instructions Recorded Confirmed Last Taken Type clonidine HCl 0.1 mg tablet 0.1 mg PO TID #30 tabs 07/01/19 08/18/21 Unknown Rx atorvastatin 80 mg tablet See Rx Instructions .Route 05/22/21 08/18/21 Unknown Rx .COMPLEX #15 ea clopidogrel 75 mg tablet 75 mg PO DAILY #90 tabs 08/20/21 Unknown Rx nystatin 100,000 unit/gram topical See Rx Instructions .Route 08/22/21 Unknown Rx cream .COMPLEX #30 grams metformin 500 mg tablet 500 mg PO BID 30 days #60 ea 09/29/21 Unknown Rx lisinopril 20 mg tablet 20 mg PO DAILY #90 tabs 11/20/21 Unknown Rx sennosides 8.6 mg-docusate sodium 1 tab PO BID #60 tabs 01/21/22 Unknown Rx 50 mg tablet (Senna Plus) Allergies Allergy/AdvReac Type Severity Reaction Status Date / Time No Known Allergies Allergy Verified 08/18/21 09:22 [facility] Anesthesia Medical History (Updated 02/04/22 @ 01:07 by Ace Guy MD) Essential hypertension H/O: stroke with residual effects History of diabetes mellitus Hypercholesterolemia On statin therapy Paralysis due to old stroke Social History Smoking and tobacco status: former smoker Data Anesthesia : 02/03/22 21:51 02/03/22 21:51 Short CBC 02/03/22 Range/Units 21:51 WBC 10.8 H (4.0-10.0) 10^3/uL Hgb 9.1 L (11.5-15.3) g/dL Hct 28.1 L (37.0-47.0) % MCV 88.1 (81-99) fl Plt Count 216 (130-400) 10^3/cmm Neut % (Auto) 95.6 % Neut # (Auto) 10.29 H (1.8-7.7) 10^3/uL BMP 02/03/22 21:51 Sodium 139 Potassium 4.0 Chloride 102 Carbon Dioxide 18 L BUN 25 H Creatinine 1.5 H Glucose 135 H Calcium 8.3 L Cardiac Enzymes 02/03/22 02/03/22 Range/Units 21:51 21:51 Creatine Kinase 440 H* (26-192) U/L NT-Pro-B Natriuret Pep 1812 H (0-125) pg/mL Liver Function 02/03/22 Range/Units 21:51 Total Bilirubin 0.3 (0.15-1.2) mg/dL AST 29 (0-32) U/L ALT 24 (0-33) U/L Alkaline Phosphatase 159 H (35-105) U/L Albumin 2.7 L (3.5-5.2) g/dL Urine 02/03/22 Range/Units 22:00 Urine Color Yellow (Yellow) Urine Appearance Sl hazy (CLEAR) Urine pH 5 (5-7) Ur Specific [place]ki 1.025 (1.005-1.030) Urine Protein 2+ H (Negative) Urine Glucose (UA) Trace H (Normal) Urine Ketones 1+ H (Negative) Urine Nitrate Negative (Negative) Urine Bilirubin Neg (Negative) Ur Leukocyte Esterase 1+ H (Negative) Urine RBC 80-100 H (0-2) /hpf Urine WBC Too numerous to cnt H (0-5) /hpf Ur Renal Epithelial Cell 0-4 /hpf Coags 02/03/22 02/03/22 21:51 21:51 PT 15.80 H INR 1.23 H C-Reactive Protein 191.9 H ABG 02/03/22 21:49 Specimen Type Arterial Sample Site Radial, right ABG pH 7.49 H ABG pCO2 24.9 L ABG pO2 68.2 L ABG HCO3 19.0 L ABG Base Excess -3.3 L O2 Delivery Device None Microbiology 02/03/22 22:13 Blood Culture - Preliminary Blood SPECIMEN COLLECTED 02/03/22 22:05 Blood Culture - Preliminary Blood SPECIMEN COLLECTED Cardiac Studies: No Data to Display
--- NOTE | 2022-02-04 01:18 | PM.OP ---
Operative Report Date of procedure: February 04, 2022 Pre-op diagnosis: Left obstructive pyelonephritis Post-op diagnosis: Same Procedure done: Cystoscopy, left ureteral stent placement Implants: None Pathology: None Surgeon: Malena Anesthesia: MAC Estimated blood loss: None Urine output: Not measured Complications: None Findings: 7 [place] by 28 cm double-pigtail stent left indwelling Brief History: 66-year-old white female status post CVA evaluated emergency department for change in mental status, evidence of abdominal pain, sepsis and overt UTI. CT scan demonstrated a 10 mm left UPJ stone with obstruction. She is taken to the operating room emergently for cystoscopy and stent placement with contingency of transfer for interventional radiology percutaneous nephrostomy tube placement if unable to access from below. Procedure: After emergent evaluation examination and obtaining of informed consent she was taken to the operating suite on 02/04/2022 where anesthesia was administered without difficulty. Prepped and draped in usual sterile fashion in dorsolithotomy position paying careful attention to avoiding pressure points. 21 [place] Citizen cystoscope with 30 degree lens was introduced into the urethra meatus and advanced into the bladder under videoscopy. Bladder was drained. Urine looked grossly infected. Flexible tip guidewire was then advanced up the left ureter bypassing the stone at left UPJ. A 7 [place] Citizen by 28 cm double-pigtail stent was advanced over the guidewire through the cystoscope into appropriate position as confirmed via fluoroscopy and cystoscopy. Drainage was confirmed to be purulent. Bladder drained with Barraza catheter and procedure was completed. She tolerated procedure well without complications. Transferred to the ICU and critical condition
--- NOTE | 2022-02-04 02:52 | PC.PHAR ---
`Vancomycin is dosed at 750mg IVPB every 24 hours to begin 24 hours after initial 1gm dose in the emergency room to produce a predicted trough level of 15.15 (population based pharmacokinetic analysis). A trough level has been ordered from the lab to be obtained before the fourth dose to confirm and adjust if needed. The Zosyn is dosed at 3.375gm IVPB every 8 hours on the basis of the creatinine clearance of 34.02.
--- NOTE | 2022-02-04 03:00 | ANE.PACU2 ---
Inpatient post-anesthesia follow up: Airway intact: Yes Vital signs: Temperature 97.7 F Pulse Rate 69 Respiratory Rate 18 Blood Pressure 107/61 Pulse Oximetry 97 Oxygen Delivery Me thod [ Room Air Current Rate & Del shabana] Oxygen Delivery Me thod Room Air Oxygen Flow Rate Fraction of Inspir ed Oxygen Hydration adequate: Yes Nausea and vomiting: No Pain level: 2 Mental status: Baseline
[2022-02-04] MEDS: lactated ringers 1,000 ML 125 ML IV ×2 (03:17→10:40)
[2022-02-04] MEDS: pantoprazole 40 mg SDV IVP (03:17)
[2022-02-04 04:52] LABS: INR 1.19 (0.8-1.2)
[2022-02-04 04:56] LABS: Lactate (Lactic Acid level) 3.9 mmol/L (0.5-2.2)
[2022-02-04 05:35] LABS: Thyroid Stimulating Hormone 1.06 uIU/mL (0.27-4.20)
[2022-02-04] MEDS: morphine 4 mg/mL SDV 1 mL 2 MG IVP ×3 (05:46→17:18)
[2022-02-04 06:40] LABS: Estmated Average Glucose 91; Hemoglobin A1C 4.8 % (4.0-6.0)
[2022-02-04] MEDS: piperacillin-tazobactam 3.375 GM in sodium chloride 0.9% (plus) 50 ML IV ×3 (06:43→22:41)
[2022-02-04 08:13] LABS: Glucose Point of Care 121 mg/dL (70-110)
[2022-02-04 09:18] LABS: Lactate (Lactic Acid level) 2.3 mmol/L (0.5-2.2)
--- NOTE | 2022-02-04 11:37 | PC.CHAP ---
Pastoral Care Encounter/Spiritual Assessment Type of Contact [] Declined instrument checker visit [] Patient/Family/Request visit [] Outpatient visit [] Follow-up visit [] Physician referral [] Code/Alert [x] Routine visit [] Staff referral [] Actively dying [] Patient sleeping [x] Family support [] [] Out of room [] Palliative care [] [x] Receiving care in room [] Pre-surgical visit [] Trauma [] Long length of stay [x] ICU visit [] Other: Relational/Emotional Strength [] Patient feels connected with others/family/visitors/staff [] Distress [] Loneliness/isolation [] Abandonment Spirituality of Patient [] Person of Bhavani [] Attends Scientologist of their Bhavani [] Believes in Prayer [] Reads Bible or Protestant materials [] There are Spiritual issues to be addressed Enforcement Safety Officer Interventions [x] Prayer [] Active listening [] Non-anxious presence [] Spiritual/emotional support [] Crisis/trauma care [] Spiritual counseling [] Bereavement support [] Provided bereavement packet [] Provided Bible/devotional materials [] Provided toy/stuffed animal, coloring book to patient or family member [] Provided Communion [] Anointing/[place] [] Salvation [x] Completed spiritual assessment [] Other: Impact on Illness or Injury [] Angry [] Fearful [] Anxious [] Often cries [] Exhaustion [] Unable to work [] Unable to attend mosque [] Unable to walk/stand [] Unable to read [] Unable to drive [] Unable to eat/drink [] Unable to sleep [] Unable to be with family [] Patient intubated [] Other: Summary Time spent with patient
[2022-02-04 11:49] LABS: Glucose Point of Care 117 mg/dL (70-110)
--- NOTE | 2022-02-04 12:39 | P.PN_ITS ---
Subjective Subjective: Patient was seen in the ICU Patient was complaining of back pain She had left-sided residual weakness from previous CVA As per the she eats regular diet no aspiration or choking She is bedbound because of left-sided residual weakness Also cystoscopy left ureteral stent placement, purulent drainage Vitals/I&O/Wt Last Vital Signs Temp 98.4 F 02/04/22 07:30 Pulse 103 H 02/04/22 10:00 Resp 13 02/04/22 10:00 BP 92/60 02/04/22 10:00 Pulse Ox 92 02/04/22 10:00 O2 Del Method 02/04/22 07:30 02/03/22 02/04/22 02/04/22 22:59 06:59 14:59 Intake Total 2958 / 2958 972.917 / 972.917 Output Total 305 / 305 Balance 2653 / 2653 972.917 / 972.917 Weight last 48 hrs Weight 64.864 kg Weight 68.039 kg Physical Exam Narrative: Patient looks very lethargic and fatigued and dehydrated Was able to follow my commands to some extent Short attention span Left-sided weakness Able to move her right side Asking for pain meds for her back pain No new focal deficit S1, S2 sinus tachycardia Abdomen soft Barraza cath draining clear concentrated urine Urinary Catheter Management: Barraza: Cath Placed During This Visit: yes Reason for Continuing Indwelling Catheter: Accurate Measurement of Urinary Output in Critically Ill Patients Urinary Catheter Date of Insertion: 02/04/22 Urinary Catheter Time of Insertion: 02:12 Data : 02/03/22 21:51 02/03/22 21:51 Micro: Microbiology 02/03/22 22:05 Blood Culture - Preliminary Blood 02/03/22 22:13 Blood Culture - Preliminary Blood A&P Assessment and plan (1) Sepsis: Status: Acute (2) Obstruction of left ureteropelvic junction (UPJ) due to stone: Status: Acute (3) UTI (urinary tract infection): Status: Acute (4) Lactic acidosis: Status: Acute (5) Acute kidney injury: Status: Acute (6) History of diabetes mellitus: Status: Acute (7) Left hemiparesis: Status: Acute Plan Acute metabolic encephalopathy related to UTI and sepsis Sepsis related encephalopathy It seems to be resolving as per the Currently on broad-spectrum antibiotics Status post left ureteral stent placement by Dr. Guy Continue IV fluids and antibiotics Levophed if needed if MAP below 65 Replenish electrolytes Recheck lactic acid in the evening Type II diabetic Start DVT prophylaxis no active hematuria Patient Dr. Guy's recommendations We will follow-up with urine culture Patient is full code I will resume her diet Attestations Medical Necessity Statement*: Continue ICU management for sepsis Critical Care Time: 30 Coding Level of Care Code Acute Waterproofing Mixer for [facility] Fwd Diagnoses Sepsis A41.9 Obstruction of left ureteropelvic junction (UPJ) due to stone N20.1 UTI (urinary tract infection) N39.0 Lactic acidosis E87.2 Acute kidney injury N17.9 History of diabetes mellitus Z86.39 Left hemiparesis G81.94
[2022-02-04 17:16] LABS: Glucose Point of Care 80 mg/dL (70-110)
[2022-02-04] MEDS: magnesium oxide 400 mg tablet PO (17:21)
[2022-02-04] MEDS: sodium bicarbonate 650 mg Tablet PO ×2 (18:36→20:39)
[2022-02-04] MEDS: lactated ringers 1,000 ML 100 ML IV (18:37)
[2022-02-04] MEDS: lactated ringers 500 ML 999 ML IV (19:03)
[2022-02-04 20:47] LABS: Anion Gap 13.9 (5-19); Blood Urea Nitrogen 20 mg/dL (8-23); Calcium 7.6 mg/dL (8.5-10.5); Carbon Dioxide 21 mmol/L (22-29); Chloride 107 mmol/L (98-107); Glomerular Filtration Rate 34.5 mL/min (90-130); Glucose 140 mg/dL (65-115); Osmolality Calculated 291 mOsm/kg (285-295); Potassium 3.9 mmol/L (3.5-5.1); Sodium 138 mmol/L (136-145)
[2022-02-04 21:42] LABS: Venous Blood Gas Hematocrit 24.8 % (37-47)
[2022-02-04 21:43] LABS: HCO3 VBG 22.3 mmol/L (24-28); PO2 VBG 55.8 mmHg (25-40); pH VBG 7.41 (7.32-7.42)
[2022-02-04 22:23] LABS: Blood Gas Operator Identificat JB; Blood Gas Sample Site Not specified; Blood Gas Sample Type Venous
[2022-02-04] MEDS: vancomycin 750 MG in sodium chloride 0.9% 250 ML 250 MG IV (22:43)
[2022-02-05] VITALS (44 sets, daily range): BP systolic 99–153; BP diastolic 59–105; PULSE 66–115; RESP 13–23; TEMP 36.5–36.9; O2SAT 90–100
[2022-02-05] MEDS: pantoprazole 40 mg SDV IVP (02:19)
[2022-02-05 03:53] LABS: Basophils % 0.3 %; Eosinophils # 0.1 10^3/uL (0.0-0.8); Eosinophils % 1.1 %; Hematocrit 26.1 % (37.0-47.0); Hemoglobin 8.2 g/dL (11.5-15.3); Lymphocytes # 1.3 10^3/uL (0.8-4.8); Lymphocytes % 10.3 %; Mean Corpuscular HGB Conc 31.4 g/dL (30.0-36.0); Mean Corpuscular Hemoglobin 28.2 pg (28.0-34.0); Mean Corpuscular Volume 89.7 fl (81-99); Monocytes # 0.7 10^3/uL (0.2-0.9); Monocytes % 5.9 %; Neutrophils # 9.91 10^3/uL (1.8-7.7); Neutrophils % 80.8 %; Nucleated Red Blood Cells % 0 %; Platelet Count 152 10^3/cmm (130-400); Red Blood Count 2.91 10^6/uL (4.1-5.3); Red Cell Distribution Width 14.6 % (12.1-15.1); White Blood Count 12.3 10^3/uL (4.0-10.0)
[2022-02-05 04:06] LABS: INR 1.07 (0.8-1.2)
[2022-02-05 04:17] LABS: Lactate (Lactic Acid level) 1.5 mmol/L (0.5-2.2)
[2022-02-05 04:21] LABS: Alanine Aminotransferase 22 U/L (0-33); Albumin Level 2.2 g/dL (3.5-5.2); Alkaline Phosphatase 106 U/L (35-105); Aspartate Amino Transferase 38 U/L (0-32); Blood Urea Nitrogen 20 mg/dL (8-23); C Reactive Protein 257.8 mg/L (0.0-4.9); Calcium 7.8 mg/dL (8.5-10.5); Carbon Dioxide 24 mmol/L (22-29); Chloride 107 mmol/L (98-107); Globulin 2.8 g/dL (1.3-4.6); Glomerular Filtration Rate 40.7 mL/min (90-130); Glucose 78 mg/dL (65-115); Magnesium 1.9 mg/dL (1.7-2.3); Osmolality Calculated 291 mOsm/kg (285-295); Phosphorus 2.3 mg/dL (2.5-4.5); Sodium 140 mmol/L (136-145); Total Bilirubin 0.3 mg/dL (0.15-1.2)
[2022-02-05 04:32] LABS: Anion Gap 12.9 (5-19)
[2022-02-05 04:33] LABS: NT Pro B Type Natriuretic Pept 6167 pg/mL (0-125); Potassium 3.9 mmol/L (3.5-5.1); Procalcitonin 90.79 ng/mL (0-0.5)
[2022-02-05 04:55] LABS: Creatine Phosphokinase 363 U/L (26-192)
[2022-02-05] MEDS: lactated ringers 1,000 ML 100 ML IV (06:30)
[2022-02-05] MEDS: piperacillin-tazobactam 3.375 GM in sodium chloride 0.9% (plus) 50 ML IV ×3 (06:30→22:06)
[2022-02-05 08:23] LABS: Glucose Point of Care 80 mg/dL (70-110)
[2022-02-05] MEDS: sennosides-docusate Tablet 1 TAB PO (09:05)
[2022-02-05] MEDS: magnesium oxide 400 mg tablet PO ×2 (09:05→17:18)
[2022-02-05] MEDS: sodium bicarbonate 650 mg Tablet PO (09:06)
[2022-02-05 12:04] LABS: Glucose Point of Care 111 mg/dL (70-110)
--- NOTE | 2022-02-05 12:43 | P.PN_ITS ---
Subjective Subjective: Patient is noted noticing new pain Afebrile Cultures negative We will transfer out of ICU to [facility] Does not need telemetry on her We will discharge her tomorrow if clinically stable Outpatient Dr. Guy follow-up Noticed change in hemoglobin repeat labs Hemodynamically stable Normal urine color 900 mL Creatinine trending down Vitals/I&O/Wt Last Vital Signs Temp 97.7 F 02/05/22 12:00 Pulse 69 02/05/22 12:00 Resp 18 02/05/22 12:00 BP 107/61 02/05/22 12:00 Pulse Ox 97 02/05/22 12:00 O2 Del Method 02/04/22 20:32 02/04/22 02/05/22 02/05/22 22:59 06:59 14:59 Intake Total 1923.75 / 2896.667 1300 / 4196.667 250 / 250 Output Total 250 / 500 650 / 1150 Balance 1673.75 / 2396.667 650 / 3046.667 250 / 250 Weight last 48 hrs Weight 64.864 kg Weight 68.039 kg Physical Exam Narrative: Patient has left-sided residual weakness Answer to my question appropriately Drowsy and wanted to sleep at the bedside As per the this is her baseline She does have vascular dementia Looks euvolemic Hemodynamic stable Currently on room air Abdomen soft Urinary Catheter Management: Barraza: Cath Placed During This Visit: yes Reason for Continuing Indwelling Catheter: Accurate Measurement of Urinary Output in Critically Ill Patients Urinary Catheter Date of Insertion: 02/04/22 Urinary Catheter Time of Insertion: 02:12 Data : 02/05/22 03:33 02/05/22 03:33 Micro: Microbiology 02/03/22 22:00 Urine Culture - Preliminary Urine,Clean Catch Gram Negative Rods 02/03/22 22:05 Blood Culture - Preliminary Blood 02/03/22 22:13 Blood Culture - Preliminary Blood A&P Assessment and plan (1) Left hemiparesis: Status: Acute (2) History of diabetes mellitus: Status: Acute (3) Acute encephalopathy: Status: Acute (4) Sepsis: Status: Acute (5) Obstructive pyelonephritis: Status: Acute (6) H/O: stroke with residual effects: Status: Acute (7) Acute kidney injury: Status: Acute (8) Hypomagnesemia: Status: Acute (9) Lactic acidosis: Status: Acute Plan Obstructive pyelonephritis Complicated UTI She will need 10 to 14 days of antibiotics Sepsis resolving Continue antibiotics Will follow with culture report Transfer out of ICU Urine culture preliminary report showing gram-negative rods previous history of E. coli which was pansensitive, Klebsiella was also pansensitive Discontinue vancomycin, continue Zosyn Sepsis related metabolic acidosis secondary to lactic acidemia Improving Discontinue bicarb tablet Acute metabolic encephalopathy related to sepsis Improved patient is at baseline as per the Vascular dementia: No acute exacerbation EVA related to sepsis Improving, creatinine improving adequate urine output Patient on Zosyn, monitor for now Drop in hemoglobin noted Repeat blood work Full code She will be discharged home does not want prison placement Attestations Medical Necessity Statement*: Continue ICU management Time Spent in Patient Care: 30 Coding Level of Care Code Acute Director Radio News for [facility] Fwd Diagnoses Left hemiparesis G81.94 History of diabetes mellitus Z86.39 Acute encephalopathy G93.40 Sepsis A41.9 Obstructive pyelonephritis N11.1 H/O: stroke with residual effects I69.30 Acute kidney injury N17.9 Hypomagnesemia E83.42 Lactic acidosis E87.2
[2022-02-05 16:58] LABS: Glucose Point of Care 167 mg/dL (70-110)
[2022-02-05] MEDS: insulin lispro 100 unit/1 mL SUBCUT (17:18)
[2022-02-05 21:00] LABS: Glucose Point of Care 134 mg/dL (70-110)
[2022-02-06] VITALS (47 sets, daily range): BP systolic 120–204; BP diastolic 72–135; PULSE 62–110; RESP 13–31; TEMP 36.6–37.4; O2SAT 89–99
[2022-02-06] MEDS: lactated ringers 1,000 ML 50 ML IV (00:57)
[2022-02-06 05:37] LABS: Basophils # 0.1 10^3/uL (0.0-0.1); Basophils % 0.6 %; Eosinophils # 0.2 10^3/uL (0.0-0.8); Eosinophils % 1.9 %; Hematocrit 24.3 % (37.0-47.0); Hemoglobin 7.5 g/dL (11.5-15.3); Lymphocytes # 1.5 10^3/uL (0.8-4.8); Lymphocytes % 17.8 %; Mean Corpuscular HGB Conc 30.9 g/dL (30.0-36.0); Mean Corpuscular Hemoglobin 27.8 pg (28.0-34.0); Monocytes # 0.5 10^3/uL (0.2-0.9); Monocytes % 5.4 %; Neutrophils # 6.08 10^3/uL (1.8-7.7); Neutrophils % 73.2 %; Nucleated Red Blood Cells % 0 %; Platelet Count 188 10^3/cmm (130-400); Red Cell Distribution Width 14.6 % (12.1-15.1); White Blood Count 8.3 10^3/uL (4.0-10.0)
[2022-02-06 06:08] LABS: NT Pro B Type Natriuretic Pept 3181 pg/mL (0-125); Procalcitonin 45.48 ng/mL (0-0.5)
[2022-02-06] MEDS: piperacillin-tazobactam 3.375 GM in sodium chloride 0.9% (plus) 50 ML IV (06:17)
[2022-02-06 06:20] LABS: Alanine Aminotransferase 21 U/L (0-33); Albumin Level 1.6 g/dL (3.5-5.2); Alkaline Phosphatase 110 U/L (35-105); Anion Gap 10.6 (5-19); Aspartate Amino Transferase 28 U/L (0-32); Blood Urea Nitrogen 17 mg/dL (8-23); C Reactive Protein 131.6 mg/L (0.0-4.9); Calcium 8.2 mg/dL (8.5-10.5); Carbon Dioxide 23 mmol/L (22-29); Chloride 108 mmol/L (98-107); Globulin 3.4 g/dL (1.3-4.6); Glomerular Filtration Rate 49.4 mL/min (90-130); Glucose 82 mg/dL (65-115); Osmolality Calculated 287 mOsm/kg (285-295); Potassium 3.6 mmol/L (3.5-5.1); Sodium 138 mmol/L (136-145); Total Bilirubin 0.4 mg/dL (0.15-1.2)
--- NOTE | 2022-02-06 07:02 | P.PN_ITS ---
Subjective Subjective: Drop in hemoglobin noted However no tachycardia or hypotension Repeat H&H this morning No febrile episodes Creatinine improved Vitals/I&O/Wt Last Vital Signs Temp 99 F 02/06/22 04:00 Pulse 94 02/06/22 05:19 Resp 19 H 02/06/22 04:00 BP 137/88 02/06/22 04:00 Pulse Ox 93 02/06/22 04:00 O2 Del Method 02/06/22 04:00 02/05/22 02/06/22 02/06/22 22:59 06:59 14:59 Intake Total 640 / 1740 230 / 1970 Output Total 1275 / 1575 Balance 640 / 1440 -1045 / 395 Physical Exam Narrative: Left-sided residual weakness Patient looks euvolemic Urine color is yellow, no signs of bleeding Abdomen soft Currently on room air No new focal deficit S1, S2 Currently not in any active distress No signs of edema of legs Urinary Catheter Management: Barraza: Cath Placed During This Visit: yes Reason for Continuing Indwelling Catheter: Accurate Measurement of Urinary Output in Critically Ill Patients Urinary Catheter Date of Insertion: 02/04/22 Urinary Catheter Time of Insertion: 02:12 Data : 02/06/22 08:00 02/06/22 05:10 Micro: Microbiology 02/03/22 22:05 Blood Culture - Preliminary Blood 02/03/22 22:13 Blood Culture - Preliminary Blood 02/03/22 22:00 Urine Culture - Preliminary Urine,Clean Catch Gram Negative Rods A&P Assessment and plan (1) Left hemiparesis: Status: Acute (2) Obstructive pyelonephritis: Status: Acute (3) H/O: stroke with residual effects: Status: Acute (4) Acute kidney injury: Status: Acute (5) Lactic acidosis: Status: Acute (6) Hypomagnesemia: Status: Acute (7) UTI (urinary tract infection): Status: Acute (8) Obstruction of left ureteropelvic junction (UPJ) due to stone: Status: Acute (9) Acute encephalopathy: Status: Acute (10) History of diabetes mellitus: Status: Acute Plan Sepsis: Resolved Acute metabolic encephalopathy related to UTI and sepsis: Resolved EVA related to obstructive pyelonephritis: Resolved Drop in H&H noted, however no tachycardia or hypotension Repeat CBC I would like to keep her here 1 more day to monitor her H&H Patient seems to be around baseline does not want her to go to any nursing facility Plan to discharge her home over the weekend Urine is clear No active hematuria No febrile events We will give her 1 unit PRBC, check FOBT, please note there is no signs of tachycardia or hypotension, Attestations Medical Necessity Statement*: Discharge tomorrow if stable Time Spent in Patient Care: 30 Coding Level of Care Code Acute Behavior Support Specialist for g Fwd Diagnoses Left hemiparesis G81.94 Obstructive pyelonephritis N11.1 H/O: stroke with residual effects I69.30 Acute kidney injury N17.9 Lactic acidosis E87.2 Hypomagnesemia E83.42 UTI (urinary tract infection) N39.0 Obstruction of left ureteropelvic junction (UPJ) due to stone N20.1 Acute encephalopathy G93.40 History of diabetes mellitus Z86.39
[2022-02-06 07:44] LABS: Glucose Point of Care 106 mg/dL (70-110)
[2022-02-06 08:16] LABS: Hematocrit 24.4 % (37.0-47.0); Hemoglobin 7.6 g/dL (11.5-15.3)
[2022-02-06] MEDS: sennosides-docusate Tablet 1 TAB PO (08:48)
[2022-02-06] MEDS: magnesium oxide 400 mg tablet PO ×2 (08:48→17:37)
--- NOTE | 2022-02-06 10:51 | PC.NURSE ---
at bedside am brk served feed self with minimal assist. position off bottom noted area dark nonblanching area .
[2022-02-06 12:20] LABS: Glucose Point of Care 114 mg/dL (70-110)
[2022-02-06] MEDS: morphine 4 mg/mL SDV 1 mL 2 MG IVP ×2 (12:20→21:30)
--- NOTE | 2022-02-06 12:41 | PC.CHAP ---
Pastoral Care Encounter/Spiritual Assessment Type of Contact [] Declined print line tailer visit [] Patient/Family/Request visit [] Outpatient visit [] Follow-up visit [] Physician referral [] Code/Alert [x] Routine visit [] Staff referral [] Actively dying [] Patient sleeping [x] Family support [] [] Out of room [] Palliative care [] [] Receiving care in room [] Pre-surgical visit [] Trauma [] Long length of stay [x] ICU visit [x] Other: patient doesnt respond to conversation Relational/Emotional Strength [] Patient feels connected with others/family/visitors/staff [] Distress [] Loneliness/isolation [] Abandonment Spirituality of Patient [] Person of Bhavani [] Attends Adventism of their Bhavani [] Believes in Prayer [] Reads Bible or Taoism materials [] There are Spiritual issues to be addressed Hot Frame Tender Interventions [x] Prayer [] Active listening [] Non-anxious presence [] Spiritual/emotional support [] Crisis/trauma care [] Spiritual counseling [] Bereavement support [] Provided bereavement packet [] Provided Bible/devotional materials [] Provided toy/stuffed animal, coloring book to patient or family member [] Provided Communion [] Anointing/[place] [] Salvation [x] Completed spiritual assessment [] Other: Impact on Illness or Injury [] Angry [] Fearful [] Anxious [] Often cries [] Exhaustion [] Unable to work [] Unable to attend mandaeism [] Unable to walk/stand [] Unable to read [] Unable to drive [] Unable to eat/drink [] Unable to sleep [] Unable to be with family [] Patient intubated [] Other: Summary Time spent with patient
[2022-02-06] MEDS: lisinopril 20 mg Tablet PO (14:26)
[2022-02-06 17:27] LABS: Glucose Point of Care 136 mg/dL (70-110)
[2022-02-06] MEDS: sodium chloride 0.9% (100 ml) 100 ML (18:30)
--- NOTE | 2022-02-06 20:00 | PC.NURSE ---
Physician Communication 1 unit of PRBC currently infusing, no CBC ordered following administration. Additionally, patient's groin bright red with moisture, with patient attempting to scratch. Dr. Cohen contacted and orders received for use of nystatin powder on groin and a CBC to recheck hgb following blood transfusion.
[2022-02-06 20:56] LABS: Glucose Point of Care 173 mg/dL (70-110)
[2022-02-06] MEDS: nystatin powder 15 gm Btl 1 APPLIC TOPICAL (21:20)
[2022-02-07] VITALS (30 sets, daily range): BP systolic 112–192; BP diastolic 57–110; PULSE 63–100; RESP 16–24; TEMP 37–37.1; O2SAT 92–97; BMI 29.2
[2022-02-07] MEDS: labetalol 5 mg/mL SDV 20mL 10 MG IVP (00:44)
--- NOTE | 2022-02-07 01:00 | PC.NURSE ---
Blood Product/Blood Pressure Blood product transfusing per TAR. At 2099, peripheral right wrist IV leaking/oozing. IV removed and new IV placed in the right AC. At 2144, right AC noted to have swelling, bruising, and no blood return when aspirating. New IV insertion attempts made with no success. Infusion ended at 2144 with approximately 50 ml left in product bag. Pressure and dressing applied to site. Additionally, at 30, patient's blood pressure 192/110 with past pressures ranging from 160s-[address] Cohen contacted and informed of both situations. Telephone order received for 10mg labetalol PRN Q4H for systolic pressures >180, diastolic >100 and to hold med for a HR <60. Medication administered per AUG.
[2022-02-07 01:53] LABS: Basophils % 0.5 %; Eosinophils # 0.1 10^3/uL (0.0-0.8); Eosinophils % 1.5 %; Hematocrit 27.7 % (37.0-47.0); Hemoglobin 8.8 g/dL (11.5-15.3); Lymphocytes # 1.8 10^3/uL (0.8-4.8); Lymphocytes % 22.4 %; Mean Corpuscular HGB Conc 31.8 g/dL (30.0-36.0); Mean Corpuscular Hemoglobin 27.6 pg (28.0-34.0); Mean Corpuscular Volume 86.8 fl (81-99); Mean Platelet Volume 10.9 fL (7.4-10.4); Monocytes # 0.7 10^3/uL (0.2-0.9); Monocytes % 8.3 %; Neutrophils # 5.39 10^3/uL (1.8-7.7); Neutrophils % 67.1 %; Nucleated Red Blood Cells % 0 %; Platelet Count 184 10^3/cmm (130-400); Red Blood Count 3.19 10^6/uL (4.1-5.3); Red Cell Distribution Width 14.3 % (12.1-15.1)
[2022-02-07 04:14] LABS: Basophils # 0.1 10^3/uL (0.0-0.1); Basophils % 0.6 %; Eosinophils # 0.1 10^3/uL (0.0-0.8); Eosinophils % 1.6 %; Hematocrit 28.8 % (37.0-47.0); Lymphocytes # 1.8 10^3/uL (0.8-4.8); Mean Corpuscular HGB Conc 31.3 g/dL (30.0-36.0); Mean Corpuscular Volume 89.4 fl (81-99); Mean Platelet Volume 10.9 fL (7.4-10.4); Monocytes # 0.7 10^3/uL (0.2-0.9); Monocytes % 8.8 %; Neutrophils # 5.07 10^3/uL (1.8-7.7); Neutrophils % 65.6 %; Nucleated Red Blood Cells % 0 %; Platelet Count 176 10^3/cmm (130-400); Red Blood Count 3.22 10^6/uL (4.1-5.3); Red Cell Distribution Width 14.6 % (12.1-15.1); White Blood Count 7.7 10^3/uL (4.0-10.0)
[2022-02-07 04:37] LABS: Alanine Aminotransferase 25 U/L (0-33); Albumin Level 2.2 g/dL (3.5-5.2); Alkaline Phosphatase 142 U/L (35-105); Anion Gap 11.8 (5-19); Aspartate Amino Transferase 25 U/L (0-32); Blood Urea Nitrogen 17 mg/dL (8-23); Calcium 8.3 mg/dL (8.5-10.5); Carbon Dioxide 24 mmol/L (22-29); Chloride 105 mmol/L (98-107); Globulin 2.6 g/dL (1.3-4.6); Glomerular Filtration Rate 55.1 mL/min (90-130); Glucose 94 mg/dL (65-115); Osmolality Calculated 285 mOsm/kg (285-295); Potassium 3.8 mmol/L (3.5-5.1); Sodium 137 mmol/L (136-145); Total Bilirubin 0.5 mg/dL (0.15-1.2); Total Protein 4.8 g/dL (6.6-8.7)
[2022-02-07] MEDS: morphine 4 mg/mL SDV 1 mL 2 MG IVP (06:04)
[2022-02-07] MEDS: levoFLOXacin 750 mg Tablet PO (06:15)
[2022-02-07 07:51] LABS: Glucose Point of Care 90 mg/dL (70-110)
[2022-02-07] MEDS: sennosides-docusate Tablet 1 TAB PO (08:57)
[2022-02-07] MEDS: magnesium oxide 400 mg tablet PO (08:57)
[2022-02-07] MEDS: lisinopril 20 mg Tablet PO (08:57)
[2022-02-07] MEDS: nystatin powder 15 gm Btl 1 APPLIC TOPICAL (08:57)
[2022-02-07 11:46] LABS: Glucose Point of Care 164 mg/dL (70-110)
--- NOTE | 2022-02-07 13:00 | PM.DCS ---
Discharge Providers Date of Admission: 02/04/22 02:27 Date of Discharge: February 07, 2022 Attending Provider at Admission: Neto Cohen MD Attending Provider at Discharge: Ashley Chaney MD Primary Care Provider: Angie Conn MD Diagnoses at Discharge Discharge Diagnosis (1) Left hemiparesis: Status: Acute (2) Obstructive pyelonephritis: Status: Acute (3) H/O: stroke with residual effects: Status: Acute (4) Acute kidney injury: Status: Acute (5) Lactic acidosis: Status: Acute (6) Hypomagnesemia: Status: Acute (7) UTI (urinary tract infection): Status: Acute (8) Obstruction of left ureteropelvic junction (UPJ) due to stone: Status: Acute (9) Acute encephalopathy: Status: Acute (10) History of diabetes mellitus: Status: Acute Reason for Visit Reason for Visit: Fever Hospital Course Hospital Course 66-year-old female who carries history of CVA with residual left-sided deficit, bedbound, she was diagnosed with sepsis related to obstructive 10 mm left UPJ stone, Dr. Guy was consulted patient is status post 7 Kinyarwanda double-pigtail stent left ureter placement, sepsis resolved, her blood culture showed gram-negative rods E. coli, urine culture showing Proteus sensitive to Levaquin, repeat cultures negative to date, she remained afebrile, no leukocytosis At the time of discharge she will get 14-day regimen of Levaquin I have discontinued her clonidine for her blood pressure she will get metoprolol, lisinopril and amlodipine I have discontinued her metformin hemoglobin A1c is less than 5 Discontinue atorvastatin, relative contraindication in demented patient She will go home with indwelling Barraza catheter Physical Exam Narrative: Patient has left-sided residual weakness Able to follow commands Answer questions in simple words Response to verbal stimuli Awake and alert Currently on room air Afebrile Abdomen soft Lower extremity trace edema Urinary Catheter Management: Barraza: Cath Placed During This Visit: yes Reason for Continuing Indwelling Catheter: Accurate Measurement of Urinary Output in Critically Ill Patients Urinary Catheter Date of Insertion: 02/04/22 Urinary Catheter Time of Insertion: 02:12 Discharge Data Studies Completed and Pending Completed Studies During Hospitalization Category Date Time Status CT abdomen pelvis wo con [id number] Stat Cat Scan 02/03/22 23:00 Completed XR chest 1V portable [id number] Stat Exams 02/03/22 21:37 Completed Pending at discharge Category Date Time Status Blood Culture Stat Lab 02/06/22 14:25 Results Occult Blood Stool [Immunochemical Fecal OCB] Routine Lab 02/06/22 13:44 Uncollected Radiology Impressions Chest X-Ray 02/03/22 21:37 IMPRESSION: No acute infiltrate. Abdomen/Pelvis CT 02/03/22 23:00 IMPRESSION: Left nephrolithiasis with obstructing stone at the left ureteropelvic junction. Laboratory Results WBC 7.7 10^3/uL (4.0-10.0) 02/07/22 03:46 RBC 3.22 10^6/uL (4.1-5.3) L 02/07/22 03:46 Hgb 9.0 g/dL (11.5-15.3) L 02/07/22 03:46 Hct 28.8 % (37.0-47.0) L 02/07/22 03:46 MCV 89.4 fl (81-99) 02/07/22 03:46 MCH 28.0 pg (28.0-34.0) 02/07/22 03:46 MCHC 31.3 g/dL (30.0-36.0) 02/07/22 03:46 RDW 14.6 % (12.1-15.1) 02/07/22 03:46 Plt Count 176 10^3/cmm (130-400) 02/07/22 03:46 MPV 10.9 fL (7.4-10.4) H 02/07/22 03:46 Neut % (Auto) 65.6 % 02/07/22 03:46 Lymph % (Auto) 23.0 % 02/07/22 03:46 [place] % (Auto) 8.8 % 02/07/22 03:46 Eos % (Auto) 1.6 % 02/07/22 03:46 Baso % (Auto) 0.6 % 02/07/22 03:46 Neut # (Auto) 5.07 10^3/uL (1.8-7.7) 02/07/22 03:46 Lymph # (Auto) 1.8 10^3/uL (0.8-4.8) 02/07/22 03:46 [place] # (Auto) 0.7 10^3/uL (0.2-0.9) 02/07/22 03:46 Eos # (Auto) 0.1 10^3/uL (0.0-0.8) 02/07/22 03:46 Baso # (Auto) 0.1 10^3/uL (0.0-0.1) 02/07/22 03:46 Nucleated RBC % (auto) 0 % 02/07/22 03:46 Nucleated RBCs # 0.0 /100WBC 02/07/22 03:46 PT 14.30 SECONDS (12.1-14.9) 02/05/22 03:33 INR 1.07 (0.8-1.2) 02/05/22 03:33 Specimen Type Venous 02/04/22 21:24 Sample Site Not specified 02/04/22 21:24 ABG pH 7.49 (7.35-7.45) H 02/03/22 21:49 ABG pCO2 24.9 mmHg (35-45) L 02/03/22 21:49 ABG pO2 68.2 mmHg (80.0-100.0) L 02/03/22 21:49 ABG HCO3 19.0 mmol/L (22-26) L 02/03/22 21:49 ABG Base Excess -3.3 mmol/L (-2.0-2.0) L 02/03/22 21:49 Ashwin Test N/a 02/04/22 21:24 VBG pH 7.41 (7.32-7.42) 02/04/22 21:24 VBG pCO2 35.0 mmHg (41-51) L 02/04/22 21:24 VBG pO2 55.8 mmHg (25-40) H 02/04/22 21:24 VBG HCO3 22.3 mmol/L (24-28) L 02/04/22 21:24 VBG Base Excess -2.0 mmol/L (-3.0-3.0) 02/04/22 21:24 VBG Hematocrit 24.8 % (37-47) L 02/04/22 21:24 Hematocrit 29.2 % (37-47) L 02/03/22 21:49 O2 Delivery Device None 02/04/22 21:24 FiO2 21.0 % 02/04/22 21:24 Ballpoint Pen Assembly Machine Operator ID Itz 08/17/22 21:24 Sodium 137 mmol/L (136-145) 02/07/22 03:46 Potassium 3.8 mmol/L (3.5-5.1) 02/07/22 03:46 Chloride 105 mmol/L (98-107) 02/07/22 03:46 Carbon Dioxide 24 mmol/L (22-29) 02/07/22 03:46 Anion Gap 11.8 (5-19) 02/07/22 03:46 BUN 17 mg/dL (8-23) 02/07/22 03:46 Creatinine 1.0 mg/dL (0.5-0.9) H 02/07/22 03:46 GFR Calculation 55.1 mL/min (90-130) L 02/07/22 03:46 Glucose 94 mg/dL (65-115) 02/07/22 03:46 POC Glucose 164 mg/dL (70-110) H 02/07/22 11:40 Estimat Average Glucose Cancelled 02/04/22 04:14 Hemoglobin A1c Cancelled 02/04/22 04:14 Calculated Osmolality 285 mOsm/kg (285-295) 02/07/22 03:46 Lactate 1.5 mmol/L (0.5-2.2) 02/05/22 03:33 Calcium 8.3 mg/dL (8.5-10.5) L 02/07/22 03:46 Phosphorus 2.3 mg/dL (2.5-4.5) L 02/05/22 03:33 Magnesium 1.9 mg/dL (1.7-2.3) 02/05/22 03:33 Total Bilirubin 0.5 mg/dL (0.15-1.2) 02/07/22 03:46 AST 25 U/L (0-32) 02/07/22 03:46 ALT 25 U/L (0-33) 02/07/22 03:46 Alkaline Phosphatase 142 U/L (35-105) H 02/07/22 03:46 Creatine Kinase 363 U/L (26-192) H* 02/05/22 03:33 C-Reactive Protein 131.6 mg/L (0.0-4.9) H 02/06/22 05:10 NT-Pro-B Natriuret Pep 3181 pg/mL (0-125) H 02/06/22 05:10 NT-Pro-B Natriuret Pep Cancelled 02/06/22 05:10 Total Protein 4.8 g/dL (6.6-8.7) L 02/07/22 03:46 Albumin 2.2 g/dL (3.5-5.2) L 02/07/22 03:46 Globulin 2.6 g/dL (1.3-4.6) 02/07/22 03:46 Procalcitonin 45.48 ng/mL (0-0.5) H 02/06/22 05:10 Procalcitonin Cancelled 02/06/22 05:10 TSH 1.06 uIU/mL (0.27-4.20) 02/04/22 04:14 Urine Color Yellow (Yellow) 02/03/22 22:00 Urine Appearance Sl hazy (CLEAR) 02/03/22 22:00 Urine pH 5 (5-7) 02/03/22 22:00 Ur Specific [place] 1.025 (1.005-1.030) 02/03/22 22:00 Urine Protein 2+ (Negative) H 02/03/22 22:00 Urine Glucose (UA) Trace (Normal) H 02/03/22 22:00 Urine Ketones 1+ (Negative) H 02/03/22 22:00 Urine Blood 3+ (Negative) H 02/03/22 22:00 Urine Nitrate Negative (Negative) 02/03/22 22:00 Urine Bilirubin Neg (Negative) 02/03/22 22:00 Urine Urobilinogen Norm mg/dL (Negative) 02/03/22 22:00 Ur Leukocyte Esterase 1+ (Negative) H 02/03/22 22:00 Urine RBC 80-100 /hpf (0-2) H 02/03/22 22:00 Urine WBC Too numerous to cnt /hpf (0-5) H 02/03/22 22:00 Ur Squamous Epith Cells 5-10 /hpf (0-5) H 02/03/22 22:00 Ur Renal Epithelial Cell 0-4 /hpf 02/03/22 22:00 Amorphous Sediment Not Reportable 02/03/22 22:00 Urine Bacteria 2+ /hpf (NONE) H 02/03/22 22:00 Fine Granular Casts 0-4 /lpf H 02/03/22 22:00 Blood Type A Positive 02/06/22 08:00 Rho(D) Type Positive 02/06/22 08:00 Antibody Screen Negative 02/06/22 08:00 Crossmatch See Detail 02/06/22 08:00 Vitals Last Vital Signs Temp 98.6 F 02/07/22 04:00 Pulse 87 02/07/22 09:00 Resp 19 H 02/07/22 09:00 BP 145/87 02/07/22 09:00 Pulse Ox 95 02/07/22 09:00 O2 Del Method 02/07/22 06:00 Discharge Plan Discharge Patient Disposition: Home Condition: Stable Prescriptions: New levofloxacin 750 mg Tablet 750 mg PO DAILY@0600 Qty: 14 0RF sennosides-docusate sodium [Stool Softener-Laxative] 8.6-50 mg Tablet 1 tab PO DAILY Qty: 20 0RF metoprolol tartrate 50 mg tablet 50 mg PO BID Qty: 60 2RF Continued clopidogrel 75 mg tablet 75 mg PO DAILY Qty: 90 3RF nystatin 100,000 unit/gram cream See Rx Instructions .ROUTE .COMPLEX Qty: 30 10RF Dose Instruction: APPLY TOPICALLY THREE TIMES DAILY Rx Instructions: APPLY TOPICALLY THREE TIMES DAILY lisinopril 20 mg tablet 20 mg PO DAILY Qty: 90 1RF Senna Plus 8.6-50 mg tablet 1 tab PO BID Qty: 60 8RF Discontinued atorvastatin 80 mg tablet See Rx Instructions .ROUTE .COMPLEX Qty: 15 10RF Dose Instruction: TAKE 1/2 TABLET BY MOUTH AT BEDTIME Rx Instructions: TAKE 1/2 TABLET BY MOUTH AT BEDTIME metformin 500 mg tablet 500 mg PO BID 30 Days Qty: 60 11RF clonidine HCl 0.1 mg tablet 0.1 mg PO TID Qty: 30 0RF Discharge Orders: Discharge Order (Routine); Ordered 02/07/22 Ordered By: Ashley Chaney Referrals: Angie Conn MD [Primary Care Provider] - Ace Guy MD [Physician] - 7-10 days Discharge Diet: Regular Discharge Activity: Bedrest Patient Instructions: Opioid Safety Discharge Attestations Time Spent in Discharge Care*: less than 30 min Quality Metrics Clinical Quality Measures [ No reported AMI, CVA or VTE this stay] Coding Level of Care Code Acute Chg FW DC note Diagnoses Left hemiparesis G81.94 Obstructive pyelonephritis N11.1 H/O: stroke with residual effects I69.30 Acute kidney injury N17.9 Lactic acidosis E87.2 Hypomagnesemia E83.42 UTI (urinary tract infection) N39.0 Obstruction of left ureteropelvic junction (UPJ) due to stone N20.1 Acute encephalopathy G93.40 History of diabetes mellitus Z86.39
--- NOTE | 2022-02-07 13:14 | PC.SOCIAL ---
Pg 2 IMM Explained to pt & spouse Pg 2 IMM. No questions voiced. Provided pt a copy. Initialed, dated & timed a copy & placed in chart.
--- NOTE | 2022-02-07 13:59 | PC.NURSE ---
discharge instructions given at this time to burr picker medication , how to empty sanchez and care until see doctor mariam. assisted to her personal wheelchair to . caution on sore starting on bottom and sitting up in w.c for prolonged time , he reqularlly cares for her at home.
== END 2022-02-07 14:01 | disposition home or self-care (01) | DRG 853 ==
LOC: ER 22:17 → ICU 02-04 00:07 → OR 02-04 01:39 → ICU 02-04 02:28
PROVIDERS: Urology; Admitting Provider Family Medicine; Emergency Provider Emergency Medicine; PCP Family Medicine; Visit Provider Internal Medicine
PROC: 0TJB8ZZ Inspection of Bladder, Via Natural or Artificial Opening Endoscopic (ICD-10-PCS; CPT 52000; principal; 2022-02-04 01:05)
PROC: 0T778DZ Dilation of Left Ureter with Intraluminal Device, Via Natural or Artificial Opening Endoscopic (ICD-10-PCS; CPT 50605; 2022-02-04 01:05)
DX: A41.9 Sepsis, unspecified organism (principal); G93.41 Metabolic encephalopathy; N20.1 Calculus of ureter; N39.0 Urinary tract infection, site not specified; I69.954 Hemiplegia and hemiparesis following unspecified cerebrovascular disease affecting left non-dominant side; E87.2 Acidosis; N17.9 Acute kidney failure, unspecified; R71.0 Precipitous drop in hematocrit; R65.20 Severe sepsis without septic shock; Z74.01 Bed confinement status; I10 Essential (primary) hypertension; E11.9 Type 2 diabetes mellitus without complications; E78.00 Pure hypercholesterolemia, unspecified; Z87.440 Personal history of urinary (tract) infections; Z86.73 Personal history of transient ischemic attack (TIA), and cerebral infarction without residual deficits; E83.42 Hypomagnesemia; Z79.02 Long term (current) use of antithrombotics/antiplatelets; B96.20 Unspecified Escherichia coli [E. coli] as the cause of diseases classified elsewhere; B96.4 Proteus (mirabilis) (morganii) as the cause of diseases classified elsewhere
CPT/HCPCS: 36415; 36416; 36430; 36600; 51702; 71045; 74176; 80048; 80053; 81001; 82550; 82803; 82962; 83036; 83605; 83735; 83880; 84100; 84145; 84443; 85014; 85018; 85025; 85610; 86140; 86850; 86900; 86920; 87040; 87077; 87086; 87186; 87205; 92523; 92610; 93005; 94664; 94760; 96365; 96367; 96372; 99285; C2625; C9113; J1815; J2270; J2543; J2704; J3010; J3370; J3475; J3490; J7030; J7040; J7050; P9016

== ENCOUNTER → 2022-02-11 12:27 | Outpatient (BNVA) | payer MEDICARE, MEDICAID, SELFPAY | PROVIDERS: PCP Family Medicine; Visit Provider Urology | DX: N11.1 Chronic obstructive pyelonephritis (principal); N20.1 Calculus of ureter | CPT/HCPCS: 99214 ==

== ENCOUNTER 2022-02-18 06:46 | Day surgery (SDC) | payer MEDICARE, MEDICAID, SELFPAY ==
[2022-02-13 12:57] VITALS: BMI 29.5
--- NOTE | 2022-02-13 14:11 | P.ANESASSM_ITS ---
Pre-Anesthetic Assessment Height/Weight: Height 1.5 m Weight 66.224 kg Preop Diagnosis: Urolithiasis Operation Date: 02/18/22 08:20 Proposed Procedures p CYSTOSCOPY LEFT STENT REMOVAL URETEROSCOPY LASER [id number],N11.1,N20.1(Not Applicable) - MD salma Mir Ureteral Stent Removal(Left) - MD salma Mir Ureteroscopy(Left) - MD salma Mir Laser Lithotripsy(Left) - MD salma Mir Ureteral Stent Placement(Left) - Ace Guy MD Familial anesthetic complications: None (history obtained from and caregiver ) Was Beta Pearl taken within 24 hours: Yes Social No alcohol and No tobacco Exam alert, oriented x 3, clear to auscultation bilaterally and regular rate & rhythm Airway Submandibular: within normal limits Cervical ROM: within normal limits Mallampati: Class III Comments: Comments: 1 tooth remaining Pulmonary None reported Denies COPD/asthma CV/HEM Anemia and Hypertension Chronic Renal Insufficiency Hx of UPJ obstruction, pyelonephritis, EVA, urinary stent Nephrolithiasis Hepatic None reported GI None reported Metabolic Diabetes Mellitus (Per not treated ) and Hyperlipidemia [facility] [place] Multiple old ecchymosis on b/l arms attributed to recent hospital stay and PIV insertions/labs Neuropsych Cerebrovascular Accident Memory loss Hx of acute encephalopathyy Left sided weakness Anesthetic Plan ASA status: 3 Anesthesia: Anesthesia Evaluation and General Other: We discussed risk and benefits of general anesthesia including PONV, sore throat (sometimes severe), corneal abrasion, positioning and peripheral nerve injuries, life threatening allergic reaction, post operative ICU admission requiring p rolonged intubation, aspiration, stroke, heart attack, , and rare incidences of recall. Patient consents to proceed with general anesthesia. Risk of > 500 ml blood loss (7ml/kg in children): No Medications/Allergies Home Medications Medication Instructions Recorded Confirmed Last Taken Type clopidogrel 75 mg tablet 75 mg PO DAILY #90 tabs 08/20/21 02/13/22 02/11/22 Rx nystatin 100,000 unit/gram topical See Rx Instructions .Route 08/22/21 02/13/22 Unknown Rx cream .COMPLEX #30 grams lisinopril 20 mg tablet 20 mg PO DAILY #90 tabs 11/20/21 02/13/22 1 Day Ago Rx ~02/03/22 sennosides 8.6 mg-docusate sodium 1 tab PO BID #60 tabs 01/21/22 02/13/22 1 Day Ago Rx 50 mg tablet (Senna Plus) ~02/03/22 amlodipine 5 mg tablet 5 mg PO DAILY #30 tabs 02/07/22 02/13/22 Unknown Rx levofloxacin 750 mg tablet 750 mg PO DAILY@0600 #14 tabs 02/07/22 02/13/22 Unknown Rx metoprolol tartrate 50 mg tablet 50 mg PO BID #60 tabs 02/07/22 02/13/22 Unknown Rx sennosides 8.6 mg-docusate sodium 1 tab PO DAILY #20 tabs 02/07/22 02/13/22 Unknown Rx 50 mg tablet (Stool Softener-Laxative) Allergies Allergy/AdvReac Type Severity Reaction Status Date / Time No Known Allergies Allergy Verified 02/11/22 13:04 [facility] Anesthesia Medical History Acute encephalopathy Acute kidney injury Essential hypertension H/O: stroke with residual effects History of diabetes mellitus Hypercholesterolemia Hypomagnesemia Lactic acidosis Left hemiparesis Obstruction of left ureteropelvic junction (UPJ) due to stone Obstructive pyelonephritis On statin therapy 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 Mother No problems noted. Social History Smoking and tobacco status: former smoker Alcohol intake: current Alcohol intake frequency: holidays/special occasions only Marital status: Current occupational status: retired History of recent travel: No Data Anesthesia Cardiac Studies: No Data to Display
[2022-02-18] VITALS (9 sets, daily range): BP systolic 116–180; BP diastolic 51–100; PULSE 74–110; RESP 14–19; TEMP 36.1–36.8; O2SAT 94–100
--- NOTE | 2022-02-18 | SCC_ITS ---
Procedure done: 1. Cystoscopy, removal of left ureteral stent 2. LEFT ureterorenoscopy with laser lithotripsy 3. Left ureteral stent placement (7 Irish by 24 without string) 53.4 seconds of fluoroscopic guidance, for a cumulative dose of 8.23 mGy, was provided to Dr. Guy by the radiology department. C-arm images of the abdomen were saved for the patient's permanent record. [facility]
--- NOTE | 2022-02-18 | SC_ITS ---
WS: [id number] C-ARM RADIOGRAPHS ABDOMEN; 2 IMAGES HISTORY: cystoscopy, lithotripsy COMPARISON: None available. Intraoperative imaging during cystoscopy. Partially coiled retrograde LEFT ureteral catheter is been placed. SC/C-arm FL for Urology IMPRESSION: Intraoperative imaging during LEFT ureteral stent placement.
--- NOTE | 2022-02-18 06:49 | PM.OP ---
Operative Report Date of procedure: February 18, 2022 Pre-op diagnosis: 1. Left UPJ stone status post obstructive pyelonephritis with emergency stenting 2. Multiple left renal calculi in addition to the UPJ stone Post-op diagnosis: 1. Left renal calculi status post obstructive pyelonephritis with emergency stenting 2. Multiple left renal calculi in addition to the previously located UPJ stone. Procedure done: 1. Cystoscopy, removal of left ureteral stent 2. LEFT ureterorenoscopy with laser lithotripsy 3. Left ureteral stent placement (7 Central African by 24 without string) Implants: Left ureteral stent Specimens removed/disposition: Stone fragments Pathology: Stone fragments Surgeon: Malena Estimated blood loss: Minimal Urine output: Not measured Complications: None Findings: 1. Anesthesia: General 2. Condition: Stable 3. Disposition: PACU 4. Findings: The UPJ stone had migrated into the upper pole. I found the larger of the 2 remaining renal stones and fragmented it as well as the upper pole stone. Could not see the smaller stone seen on CT scan. The 2 large stones were identified were completely fragment. It is likely that the 2 separate left lower pole stones actually were together in the left lower pole calyx on today's examination. There was hard to see completely but I did appear at one point that I had good visualization of 2 separate stones so hopefully the treatment was able to get all of the stones in the calyx. Brief History: Shannan is a very pleasant 66-year-old white female status post CVA with multiple residual neurodeficits who was recently hospitalized with obstructive pyelonephritis secondary to a left proximal ureteral/UPJ 10 mm stone. A stent was emergently placed on admission and she had been treated with IV antibiotics. Urine culture grew Proteus mirabilis resistant to nitrofurantoin aztreonam and tetracycline but pansensitive otherwise. Blood cultures grew E. coli and 4 bottles. She did well after antibiotic therapy and is back now for attempt at definitive therapy of the stones. We had discussed options and ultimately elected to proceed with endoscopic treatment Stopped her Plavix on 02/11/2022. Procedure: After routine preoperative evaluation examination and obtaining of informed consent she was taken to the operating suite on 02/18/2022 where general anesthesia was administered without difficulty after appropriate timeout was performed, SCDs confirmed to be functioning, preoperative antibiotics administered, beta-andre protocol confirmed. Prepped and draped in usual sterile fashion in dorsolithotomy position paying careful attention to avoiding pressure points. 21 Central African cystoscope with 30 degree lens was introduced into the urethra meatus and advanced into the bladder without difficulty. Bladder was systematically examined. Stent was in the expected position. The distal aspect of the stent was secured with grasping forceps and withdrawn through the urethral meatus and a flexible tip guidewire was advanced without difficulty up the stent and the stent was removed. The wire was secured to the drapes as a safety wire. A second guidewire was then passed without difficulty curling in the area of the upper pole calyx. This second wire was used as a working wire. A 24 cm ureteral access sheath was advanced over the working wire easily up the left ureter to the hub of the sheath. The inner sheath and wire were removed and a 7 Central African offset semirigid ureteroscope was advanced up the sheath. The UPJ stone had migrated into the left upper pole. It cannot be easily identified with the rigid scope and for that reason it was exchanged for a video flexible ureteroscope. The upper pole previously located UPJ stone was then fragmented with a 365 ?m thulium superpulse laser fiber into very small particles and sand. These were mostly flushed out around the scope. A lot of smaller particles were flushed with scope irrigation. After this was completed attention was then directed to the lower pole where the stone seen on previous CT scan was identified as well as seen on fluoroscopy. It was a difficult access to the stone but ultimately I was able to get the scope in a position where the stone could be treated. I required a smaller laser fiber to get full flexion. At the completion of fragmentation I can see no significant pieces remaining on fluoroscopy or what was able to be inspected with the scope. It would be important to confirm this on follow-up KUB. She may require ESWL to complete. The calyces were then inspected and no additional fragments of any consequence were identified. The sheath was advanced back onto the hub of the scope and the ureter was inspected as the flexible scope was removed. The ureter was in reasonably good shape Cystoscope was then backloaded over the guidewire and a 7 Central African by 24 cm double-pigtail stent was advanced over the guidewire through the cystoscope into appropriate position as confirmed via fluoroscopy and cystoscopy. Stent was confirmed to be draining. The bladder was inspected again no stones were seen in the bladder was drained with a 16 Central African Barraza catheter. She tolerated the procedure well without complications and was awakened in the operating room and returned to the recovery room in stable condition. PLANS: 1. Anticipate discharge from outpatient surgery 2. Continue LEVAQUIN 250 mg p.o. daily 3. Follow-up 1 week with KUB possible stent removal. We will consider ESWL if retreatment is required if follow-up KUB shows that the lower pole stone was not completely treated with laser.
--- NOTE | 2022-02-18 07:05 | P.ANESUD_ITS ---
Pre-Anesthetic Update Pre-Anesthetic Assessment: Date of Surgery/Procedure: 02/18/22 Preop Moriah gnosis: Left UPJ stone with infection, status post stenting Proposed Procedure: Operation Date: 02/18/22 08:20 Proposed Procedures p CYSTOSCOPY LEFT STENT REMOVAL URETEROSCOPY LASER [id number],N11.1,N20.1(Not Applicable) - MD salma Mir Ureteral Stent Removal(Left) - MD salma Mir Ureteroscopy(Left) - MD salma Mir Laser Lithotripsy(Left) - MD salma Mir Ureteral Stent Placement(Left) - Ace Guy MD Any changes to Pre-Anesthetic Assessment?: No Exam: Pre-Anes Outpt Exam: alert, oriented x 3, clear to auscultation bilaterally and regular rate & rhythm Cardiac Studies: No Data to Display
[2022-02-18 07:20] LABS: Glucose Point of Care 99 mg/dL (70-110)
[2022-02-18] MEDS: sodium chloride 0.9% 1,000 ML 30 ML IV (07:20)
--- NOTE | 2022-02-18 09:38 | W.PM.OPSUD ---
Surgery/Procedure H&P Update DATE OF PROCEDURE: February 18, 2022 DATE H&P PERFORMED: 02/11/22 H&P UPDATE INFORMATION: I have reviewed H&P completed within last 30 days, I have examined patient prior to procedure, No changes to prior documentation and H&[place] is [place] [facility] date indicated PREOP DIAGNOSIS: Left prox ureteral stone w/infection, status post stenting; additional ston PLANNED PROCEDURE: Operation Date: 02/18/22 08:20 Proposed Procedures p CYSTOSCOPY LEFT STENT REMOVAL URETEROSCOPY LASER [id number],N11.1,N20.1(Not Applicable) - Ace Guy MD s Ureteral Stent Removal(Left) - MD salma Mir Ureteroscopy(Left) - MD salma Mir Laser Lithotripsy(Left) - MD salma Mir Ureteral Stent Placement(Left) - Ace Guy MD
[2022-02-18] MEDS: levofloxacin-dextrose 5 % 500 MG/100 ML PREMIX 100 MG IV (09:41)
--- NOTE | 2022-02-18 12:17 | ANE.PACU2 ---
Inpatient post-anesthesia follow up: Airway intact: Yes Vital signs: Temperature 97.0 F Pulse Rate 79 Respiratory Rate 18 Blood Pressure 116/76 Pulse Oximetry 100 Oxygen Delivery Me thod Room Air Oxygen Flow Rate 6 Fraction of Inspir ed Oxygen Hydration adequate: Yes Nausea and vomiting: No Pain level: 1 Mental status: Baseline
--- NOTE | 2022-02-18 12:29 | PC.NURSE ---
Spoke with duarte she states she doesn't have access to the schedule and will send a note to the nurse for them to call the patient to schedule an appt.
[2022-02-18] MEDS: metoprolol tartrate 1 mg/1 mL SDV 5 mL 5 MG IVP (12:58)
--- NOTE | 2022-02-18 13:23 | ECG_ITS ---
[facility] Test Date: 2022-02-18 Pat Name: Shannan Morin Department: Room: Gender: Female Redipper: : 1955 Requested By: Mylene Shelley Order Number: [id number] Fracisco MD: Shalonda Hamm M.D. Measurements Intervals [place] Rate: 89 P: 34 WY: 138 QRS: 23 QRSD: 82 T: 41 QT: 389 QTc: 474 Interpretive Statements SINUS RHYTHM Compared to ECG 02/03/2022 21:48:43 Sinus tachycardia no longer present Electronically Signed On 02-18-2022 16:18:50 CDT by Shalonda Hamm M.D. [id number]
--- NOTE | 2022-02-18 13:28 | ANE.PACU2 ---
Inpatient post-anesthesia follow up: Airway intact: Yes Vital signs: Temperature 97.0 F Pulse Rate 79 Respiratory Rate 18 Blood Pressure 116/76 Pulse Oximetry 100 Oxygen Delivery Me thod Room Air Oxygen Flow Rate 6 Fraction of Inspir ed Oxygen Hydration adequate: Yes Nausea and vomiting: No Pain level: 2 Mental status: Baseline Additional Comments: Patient with HR in 130s to 140s w/ systolics 170s. Patient shivering and holding breath upon exam. Toshia hugger applied and EKG obtained. However, shivering obscured baseline tremendously and I as unable to determine presence or absence of p waves. Rhythm appeared regular as opposed to irregular. Metoprolol 5 mg IV given. Returned to Normal sinus rhythm. Patient warm, no chest pain, dizziness, lightheadedness, shortness of breath. Patient's caregiver feels safe bringing her home. Informed caregiver if she were to develop rapid heart rate or any of the previous symptoms or change in mental status to go to ER.
[2022-02-26 11:28] LABS: Stone Source LEFT URETER
== END 2022-02-18 13:38 | disposition home or self-care (01) ==
PROVIDERS: PCP Family Medicine; Visit Provider Urology
PROC: 0TJB8ZZ Inspection of Bladder, Via Natural or Artificial Opening Endoscopic (ICD-10-PCS; CPT 52000; principal; 2022-02-18 08:10)
PROC: (CPT 52310; 2022-02-18 08:10)
PROC: 0TJ98ZZ Inspection of Ureter, Via Natural or Artificial Opening Endoscopic (ICD-10-PCS; CPT 52351; 2022-02-18 08:10)
PROC: (CPT 52356; 2022-02-18 08:10)
PROC: (CPT 50605; 2022-02-18 08:10)
DX: N20.1 Calculus of ureter (principal); I10 Essential (primary) hypertension; E78.00 Pure hypercholesterolemia, unspecified; D64.9 Anemia, unspecified; Z87.891 Personal history of nicotine dependence; Z86.73 Personal history of transient ischemic attack (TIA), and cerebral infarction without residual deficits
CPT/HCPCS: 52356; 36416; 76000; 82365; 82962; 88300; 93005; C2625; J0330; J1100; J1170; J1956; J2405; J2704; J2710; J3010; J3490; J7030

== ENCOUNTER 2022-02-26 07:10 | Outpatient (CLI) | payer MEDICARE, MEDICAID, SELFPAY ==
--- NOTE | 2022-02-26 07:32 | XR_ITS ---
WS: [id number] KUB, AP view, 02/26/2022 Clinical Data: stones Comparison: CT abdomen pelvis, 02/03/2022. Findings: No abnormal intraabdominal masses are seen. There is no dilatated small bowel or evidence of obstruct ion. There is a left ureteral stent. No definite renal or ureteral calculi are seen. There are splenic art raven calcifications. There is fecal material throughout the colon. There is air in nondilated small lorene wel in the left side of the abdomen. Degenerative change of the lumbar vertebral bodies is moderate. XR/XR KUB [id number] Impression: Left ureteral stent.
== END 2022-02-26 07:11 | disposition home or self-care (01) ==
LOC: RAD 07:22
PROVIDERS: PCP Family Medicine; Visit Provider Urology
DX: N20.9 Urinary calculus, unspecified (principal); Z96.0 Presence of urogenital implants
CPT/HCPCS: 52310; 74018; 81003

== ENCOUNTER 2022-05-18 10:20 | Emergency (ER) | payer MEDICARE, MEDICAID, SELFPAY ==
[2022-05-18 11:39] VITALS: BP 153/92; PULSE 101; RESP 18; TEMP 36.3; O2SAT 98
[2022-05-18 13:23] LABS: Basophils % 0.2 %; Eosinophils # 0.1 10^3/uL (0.0-0.8); Eosinophils % 0.8 %; Hematocrit 32.9 % (37.0-47.0); Lymphocytes # 2.1 10^3/uL (0.8-4.8); Mean Corpuscular HGB Conc 30.4 g/dL (30.0-36.0); Mean Corpuscular Hemoglobin 26.7 pg (28.0-34.0); Mean Corpuscular Volume 87.7 fl (81-99); Mean Platelet Volume 10.6 fL (7.4-10.4); Monocytes # 0.7 10^3/uL (0.2-0.9); Monocytes % 4.8 %; Neutrophils # 11.19 10^3/uL (1.8-7.7); Neutrophils % 78.5 %; Nucleated Red Blood Cells % 0 %; Platelet Count 293 10^3/cmm (130-400); Red Blood Count 3.75 10^6/uL (4.1-5.3); Red Cell Distribution Width 14.5 % (12.1-15.1); White Blood Count 14.3 10^3/uL (4.0-10.0)
[2022-05-18 13:53] LABS: Alanine Aminotransferase 15 U/L (0-33); Albumin Level 2.8 g/dL (3.5-5.2); Alkaline Phosphatase 179 U/L (35-105); Anion Gap 15.6 (5-19); Aspartate Amino Transferase 16 U/L (0-32); Blood Urea Nitrogen 18 mg/dL (8-23); Carbon Dioxide 22 mmol/L (22-29); Chloride 102 mmol/L (98-107); Globulin 5.7 g/dL (1.3-4.6); Glomerular Filtration Rate 71.3 mL/min (90-130); Glucose 144 mg/dL (65-115); Osmolality Calculated 284 mOsm/kg (285-295); Potassium 4.6 mmol/L (3.5-5.1); Sodium 135 mmol/L (136-145); Total Bilirubin 0.2 mg/dL (0.15-1.2); Total Protein 8.5 g/dL (6.6-8.7)
[2022-05-18 16:32] LABS: Erythrocyte Sedimentation Rate 51 mm/hr (0-15)
[2022-05-18 16:33] LABS: C Reactive Protein 162.5 mg/L (0.0-4.9)
== END 2022-05-18 15:57 | disposition left against medical advice (07) ==
PROVIDERS: Emergency Medicine; Emergency Provider Family Medicine; PCP Family Medicine
DX: Z53.21 Procedure and treatment not carried out due to patient leaving prior to being seen by health care provider (principal)
CPT/HCPCS: 36415; 80053; 85025; 85651; 86140; 87040

== ENCOUNTER 2022-05-22 15:23 | Inpatient (IN) | payer MEDICARE, MEDICAID, SELFPAY ==
--- NOTE | 2022-05-22 15:50 | PM.HP ---
Providers/Chief Complaint Admitting Physician: Faisal Sultana MD Primary Care Provider: Angie Conn MD Chief Complaint: osteo History of Present Illness Shannan Morin is a 66 year old female with past medical history of hypertension, CVA with left-sided residual weakness, recent diagnosis of infected UPJ junction stone for which she underwent stent placement and removal in January with Dr. Guy at which time she also had E. coli bacteremia which was treated with antibiotics was sent in from wound care clinic after direct admit with concerns for deep-seated wound infection versus osteomyelitis needing further debridement and IV antibiotics. Patient's wound has been partially debrided at wound care clinic today. Not sure if wound cultures were taken from there or not. As per the he first noticed the ulcer around 2 months ago and he has been treating it at home with nystatin powder and Tegaderm. The skin broke open last Wednesday around 5 days ago but the wound was dry until today morning when serosanguineous fluid which was foul-smelling started draining from it. No lab work present in the system. Review of Systems General: Reports: 10 or more systems reviewed and unremarkable except in HPI and below Const: Denies: fever(s), chills, body aches, change in appetite, change in weight, malaise, night sweats, diaphoresis, change in sleep pattern, daytime sleepiness or snoring Eyes: Denies: change in vision, blurry vision, photophobia, eye discomfort or eye discharge ENMT: Denies: throat pain, enlarged tonsils, hoarseness, mouth pain, oral sores, dry mouth, tinnitus, nasal congestion or post nasal drip Card: Denies: chest pain, palpitations, irregular heart rhythm, edema, swelling of feet/ankles, lightheadedness, syncope, pre-syncope, dyspnea on exertion, orthopnea, leg pain with exertion or acrocyanosis Resp: Denies: dyspnea, productive cough, non-productive cough, wheezing, stridor, pain on inspiration, change in phlegm color, hemoptysis or chest congestion GI: Denies: abdominal pain, nausea, vomiting, hematemesis, coffee ground emesis, dysphagia, heartburn, diarrhea, constipation, bloating, GI cramping, change in bowel habits, pain on defecation, hematochezia or melena : Denies: flank pain, dysuria, urinary frequency, urinary urgency, urinary hesitancy, nocturia or hematuria Musc: Denies: neck pain, back pain, extremity pain, joint pain, joint swelling, joint redness, joint stiffness or limited range of motion Neuro: Denies: headache(s), numbness in extremities, weakness in extremities, sensory changes, lack of coordination, difficulty walking, frequent falls, dizziness, vertigo, confusion, Slurred speech present, difficulty communicating thoughts or seizure-like activity Psych: Denies: anxiety, depression, mood swings, panic attacks, hopelessness or irritability Endo: Denies: polyuria, polydipsia, tired all the time, cold intolerance, excessive sweating, flushing or heat intolerance Scott/Lymph: Denies: easy bruising or easy bleeding All/Imm: Denies: tongue swelling, facial swelling or acute wheezing Medications/Allergies Home Medications Medication Instructions Recorded Confirmed Last Taken Type clopidogrel 75 mg tablet 75 mg PO DAILY #90 tabs 08/20/21 05/22/22 02/11/22 Rx nystatin 100,000 unit/gram topical See Rx Instructions .Route 08/22/21 05/22/22 02/17/22 Rx cream .COMPLEX #30 grams sennosides 8.6 mg-docusate sodium 1 tab PO BID #60 tabs 01/21/22 05/22/22 02/17/22 Rx 50 mg tablet (Senna Plus) amlodipine 5 mg tablet 5 mg PO DAILY #30 tabs 02/07/22 05/22/22 02/17/22 Rx metoprolol tartrate 50 mg tablet 50 mg PO BID #60 tabs 02/07/22 05/22/22 02/17/22 Rx sennosides 8.6 mg-docusate sodium 1 tab PO DAILY #20 tabs 02/07/22 05/22/22 02/17/22 Rx 50 mg tablet (Stool Softener-Laxative) metformin 500 mg tablet 500 mg PO BID 02/18/22 05/22/22 02/17/22 History levofloxacin 250 mg tablet 250 mg PO DAILY 14 days #14 tabs 03/24/22 05/22/22 Unknown Rx lisinopril 20 mg tablet See Rx Instructions .Route 05/18/22 05/22/22 Unknown Rx .COMPLEX #30 ea tramadol 50 mg tablet 50 mg PO BID PRN pain #30 tabs 05/22/22 05/22/22 Unknown Rx Allergies Allergy/AdvReac Type Severity Reaction Status Date / Time No Known Allergies Allergy Verified 05/22/22 09:14 PFSH Acute PFSH: Medical History (Updated 05/22/22 @ 17:21 by Faisal Sultana MD) Acute encephalopathy Acute kidney injury Essential hypertension H/O: stroke with residual effects History of diabetes mellitus Hypercholesterolemia Hypomagnesemia Lactic acidosis Left hemiparesis Obstruction of left ureteropelvic junction (UPJ) due to stone Obstructive pyelonephritis On statin therapy 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 Stented, antibiotics, delayed laser lithotripsy and stent replacement UTI (urinary tract infection) Surgical History (Updated 05/22/22 @ 17:15 by Faisal Sultana MD) S/P ureteral stent placement Status post laser lithotripsy of ureteral calculus Family History Father No problems noted. Mother No problems noted. Social History Smoking and tobacco status: former smoker Alcohol intake: current Alcohol intake frequency: holidays/special occasions only Marital status: Current occupational status: retired History of recent travel: No Physical Exam Narrative: EXAM NARRATIVE: General: No acute distress, AO x3, chronically sick appearing HEENT: PERRLA, pupils bilaterally equal and reactive Chest: Bilateral bronchial breath sounds CVS: S1-S2 regular, no murmurs, no tachycardia, no gallops, no rubs Abdomen: Soft, nontender, no organomegaly, bowel sounds present, morbidly obese Neuro: No focal deficits, no facial deformity, AO x3, power 5/5 in all limbs Extremities: Surgically bandaged currently decub ulcers. No foul smell no drainage Data 05/22/22 16:05 05/22/22 16:05 A&P Assessment and plan (1) Sepsis: Present on admission. Ruled in by leukocytosis, endorgan damage with EVA. Source sacral decubitus ulcer Qualifiers: Sepsis acute organ dysfunction status: with acute organ dysfunction Sepsis type: sepsis due to unspecified organism Severe sepsis acute organ dysfunction type: acute renal failure Severe sepsis shock status: without septic shock (2) Sacral decubitus ulcer, stage IV: Check ESR, CRP. CT pelvis. Start on broad-spectrum antibiotics with vancomycin and Zosyn. We will consult surgery for possible debridement and deep wound cultures. Check blood cultures. Depending on the culture results and possible osteomyelitis will decide about span of treatment. (3) Wound infection: We will consult surgery for wound care orders. (4) Acute kidney injury: Baseline creatinine normal. Currently 1.6. Medical reconciliation done for nephrotoxic drugs. Hold off on lisinopril and metformin. Strict input output charting. Check urinalysis, urine lites, urine creatinine. Normal saline at 75 cc/h. Monitor BMP daily. (5) Fracture of surgical neck of left humerus: Patient at baseline is wheelchair and bedbound. (6) H/O: stroke with residual effects: (7) Status post laser lithotripsy of ureteral calculus: Plan Anemia: Could be secondary to chronic losses versus anemia of chronic disease. Monitor hemoglobin daily. Transfuse if less than 7. Check iron panel, vitamin B12, folate level. Start on oral iron supplementation CODE STATUS: Discussed in detail with patient and patient's at bedside. Full code. Cardiac diet. Heparin 5000 every 12 hourly for DVT prophylaxis. Protonix for PUD prophylaxis Attestations Medical Necessity Statement*: Admission for more than 2 midnights for management of infected sacral decubitus ulcer, acute kidney injury, sepsis Time Spent in Patient Care: Greater than 35 minutes Coding Level of Care Code Acute She[facility] for [facility] F[facility] Diagnoses Sepsis A41.9 Sepsis acute organ dysfunction status: with acute organ dysfunction Sepsis type: sepsis due to unspecified organism Severe sepsis acute organ dysfunction type: acute renal failure Severe sepsis shock status: without septic shock Sacral decubitus ulcer, stage IV L89.154 Wound infection T14.8XXA; L08.9 Acute kidney injury N17.9 Fracture of surgical neck of left humerus S42.212A H/O: stroke with residual effects I69.30 Status post laser lithotripsy of ureteral calculus Z98.890
[2022-05-22 15:52] VITALS: BP 124/85; PULSE 94; RESP 15; TEMP 36.6; O2SAT 95
[2022-05-22 16:37] LABS: Basophils # 0.1 10^3/uL (0.0-0.1); Basophils % 0.2 %; Eosinophils % 0.1 %; Hematocrit 28.3 % (37.0-47.0); Hemoglobin 8.5 g/dL (11.5-15.3); Lymphocytes # 1.6 10^3/uL (0.8-4.8); Lymphocytes % 6.3 %; Mean Corpuscular Hemoglobin 27.1 pg (28.0-34.0); Mean Corpuscular Volume 90.1 fl (81-99); Neutrophils # 21.65 10^3/uL (1.8-7.7); Neutrophils % 88.8 %; Nucleated Red Blood Cells % 0 %; Platelet Count 479 10^3/cmm (130-400); Red Blood Count 3.14 10^6/uL (4.1-5.3); Red Cell Distribution Width 14.6 % (12.1-15.1); White Blood Count 24.4 10^3/uL (4.0-10.0)
[2022-05-22 16:41] LABS: Erythrocyte Sedimentation Rate 7 mm/hr (0-15)
[2022-05-22 16:43] VITALS: PULSE 90; RESP 18; O2SAT 96
[2022-05-22 16:48] LABS: INR 1.21 (0.8-1.2)
[2022-05-22 16:53] LABS: Alanine Aminotransferase 53 U/L (0-33); Albumin Level 2.5 g/dL (3.5-5.2); Alkaline Phosphatase 183 U/L (35-105); Anion Gap 21.6 (5-19); Aspartate Amino Transferase 44 U/L (0-32); Blood Urea Nitrogen 28 mg/dL (8-23); Calcium 9.4 mg/dL (8.5-10.5); Carbon Dioxide 18 mmol/L (22-29); Chloride 97 mmol/L (98-107); Globulin 5.9 g/dL (1.3-4.6); Glomerular Filtration Rate 32.1 mL/min (90-130); Glucose 333 mg/dL (65-115); Osmolality Calculated 293 mOsm/kg (285-295); Potassium 4.6 mmol/L (3.5-5.1); Sodium 132 mmol/L (136-145); Total Bilirubin 0.3 mg/dL (0.15-1.2); Total Protein 8.4 g/dL (6.6-8.7)
--- NOTE | 2022-05-22 17:10 | CTR_ITS ---
PROCEDURE INFORMATION: Exam: CT Abdomen And Pelvis Without Contrast Exam date and time: 05/22/2022 5:26 PM Age: 66 years old Clinical indication: Abdominal tenderness; Additional info: Oracio, h/o obstructive nephropathy TECHNIQUE: Imaging protocol: Computed tomography of the abdomen and pelvis without contrast. Radiation optimization: All CT scans at this facility use at least one of these dose optimization techniques: automated exposure control; mA and/or kV adjustment per patient size (includes targeted exams where dose is matched to clinical indication); or iterative reconstruction. COMPARISON: CT abdomen pelvis wo con [id number] 02/03/2022 11:15 PM RADIATION DOSE METRICS: Total DLP (mGy-cm): 464.54 FINDINGS: Diaphragm: Hiatal hernia. Liver: Normal. No mass. Gallbladder and bile ducts: Normal. No calcified stones. No ductal dilation. Pancreas: Normal. No ductal dilation. Spleen: Calcified granuloma in the spleen. Adrenal glands: Stable mild fullness of the left adrenal gland without a focal nodule. This could represent mild hyperplasia. The right adrenal is normal. Kidneys and ureters: Stable mild perinephric stranding. Mild stranding around the left renal pelvis and proximal ureter without hydronephrosis. The kidneys are otherwise unremarkable. No calculi. Stomach and bowel: Small amount of fluid in the esophagus, consistent with stasis or reflux. Moderate stool in the distal colon and rectum. The stomach and small bowel are unremarkable. No obstruction. Appendix: The appendix is visualized and is normal. Intraperitoneal space: Unremarkable. No free air. No significant fluid collection. Vasculature: Arterial calcifications. No aneurysm. Lymph nodes: Unremarkable. No enlarged lymph nodes. Urinary bladder: Barraza catheter in a decompressed urinary bladder. Reproductive: Unremarkable as visualized. Bones/joints: There is partial destruction and/or prior debridement of the proximal segments of the coccyx. Mild soft tissue edema and small gas bubbles anterior to the distal sacrum and coccyx. No organized abscess identified. Degenerative changes of the thoracic and lumbar spine. Soft tissues: Inferior sacral decubitus ulcer with a large open wound extending to the bony coccyx. Subcutaneous soft tissue edema in the flank, buttock and hip regions. CT/CT abdomen pelvis wo con [id number] IMPRESSION: 1. Large decubitus ulcer over the distal sacrum and coccyx. The defect extends to the bone of the coccyx. 2. Partial destruction and/or debridement of the proximal segments of the coccyx. This is consistent with osteomyelitis. 3. Presacral soft tissue infection with small gas bubbles but no discrete drainable abscess. 4. Mild stranding around the left renal pelvis and proximal ureter without a calculus or hydronephrosis. This could represent scarring or infection of the left renal collecting system.
[2022-05-22 17:13] LABS: Procalcitonin 6.35 ng/mL (0-0.5); Thyroid Stimulating Hormone 2.25 uIU/mL (0.27-4.20); Vitamin B12 658 pg/mL (232-1245)
[2022-05-22 17:24] LABS: C Reactive Protein 186.7 mg/L (0.0-4.9); Iron 15 ug/dL (37-145); Magnesium 1.8 mg/dL (1.7-2.3); Percent Saturation 10.3 % (20-50); Total Iron Binding Capacity 145 mcg/dl; Unsaturated Iron Binding 130 ug/dL (112-347)
[2022-05-22 17:57] LABS: Folate Level > 20.0 ng/mL (4.8-37.3)
[2022-05-22 18:00] LABS: Add Urine Microscopic? YES; Bacteria Urine TRACE /hpf; Bilirubin Urine Neg (Negative); Blood Urine 2+ (Negative); Glucose Urine UA Norm (Normal); Ketones Urine Negative (Negative); Leukocyte Esterase Urine 2+ (Negative); Nitrate Urine Negative (Negative); Protein Urine Neg (Negative); RBC Urine 0-4 /hpf (0-2); Squamous Epithelial Cell Urine 0-4 /hpf (0-5); Urine Appearance Hazy (CLEAR); Urine Color Yellow (Yellow); Urine Creatinine 81 mg/dL (28-217); Urobilinogen Urine Norm (Negative); WBC Urine TOO NUMEROUS TO CNT /hpf (0-5); pH Urine 5 (5-7)
[2022-05-22 18:01] LABS: Add Urine Culture? Yes
[2022-05-22] MEDS: sodium chloride 0.9% 1,000 ML 75 ML IV (18:01)
[2022-05-22] MEDS: piperacillin-tazobactam 3.375 GM in sodium chloride 0.9% (plus) 50 ML IV (18:02)
[2022-05-22] MEDS: heparin 5,000 unit/mL INJ 1 mL 5000 UNIT SUBCUT (18:04)
[2022-05-22] MEDS: ferrous gluconate 324 mg Tablet PO (18:05)
[2022-05-22] MEDS: metoprolol tartrate 50 mg Tablet PO (18:05)
[2022-05-22 18:19] LABS: Eosinophil Urine No Eosinophils Seen
[2022-05-22 19:19] LABS: Potassium, Radom Urine 42 mmol/L; Urine Random Chloride 56 mmol/L; Urine Random Sodium 61 mmol/L
[2022-05-22 19:26] VITALS: BP 101/65; PULSE 89; RESP 19; TEMP 38.9; O2SAT 98
[2022-05-22 22:00] VITALS: PULSE 102
[2022-05-22] MEDS: vancomycin 750 MG in sodium chloride 0.9% 250 ML 250 MG IV (22:50)
[2022-05-23] VITALS (10 sets, daily range): BP systolic 91–121; BP diastolic 54–80; PULSE 88–105; RESP 16–23; TEMP 37.2–38.4; O2SAT 95–99
[2022-05-23] MEDS: piperacillin-tazobactam 3.375 GM in sodium chloride 0.9% (plus) 50 ML IV ×3 (01:12→16:52)
[2022-05-23] MEDS: heparin 5,000 unit/mL INJ 1 mL 5000 UNIT SUBCUT ×2 (05:19→16:52)
[2022-05-23 05:53] LABS: Basophils # 0.1 10^3/uL (0.0-0.1); Basophils % 0.3 %; Eosinophils # 0.1 10^3/uL (0.0-0.8); Eosinophils % 0.3 %; Hematocrit 24.2 % (37.0-47.0); Hemoglobin 7.3 g/dL (11.5-15.3); Lymphocytes # 2.4 10^3/uL (0.8-4.8); Lymphocytes % 14.5 %; Mean Corpuscular HGB Conc 30.2 g/dL (30.0-36.0); Mean Corpuscular Hemoglobin 27.2 pg (28.0-34.0); Mean Corpuscular Volume 90.3 fl (81-99); Mean Platelet Volume 9.9 fL (7.4-10.4); Monocytes % 6.1 %; Neutrophils # 12.92 10^3/uL (1.8-7.7); Neutrophils % 78.3 %; Nucleated Red Blood Cells % 0 %; Platelet Count 362 10^3/cmm (130-400); Red Blood Count 2.68 10^6/uL (4.1-5.3); Red Cell Distribution Width 14.7 % (12.1-15.1); White Blood Count 16.5 10^3/uL (4.0-10.0)
[2022-05-23 06:16] LABS: Alanine Aminotransferase 56 U/L (0-33); Alkaline Phosphatase 161 U/L (35-105); Anion Gap 15.2 (5-19); Aspartate Amino Transferase 51 U/L (0-32); Blood Urea Nitrogen 31 mg/dL (8-23); Calcium 8.7 mg/dL (8.5-10.5); Carbon Dioxide 19 mmol/L (22-29); Chloride 104 mmol/L (98-107); Chol HDL Ratio 5.52 mg/dL (0.0-4.40); Cholesterol 116 mg/dL (0-200); Globulin 5.1 g/dL (1.3-4.6); Glomerular Filtration Rate 34.5 mL/min (90-130); Glucose 154 mg/dL (65-115); HDL Cholesterol 21 mg/dL (60-100); LDL Cholesterol Calculated 68 mg/dL (50-129); Osmolality Calculated 288 mOsm/kg (285-295); Potassium 4.2 mmol/L (3.5-5.1); Sodium 134 mmol/L (136-145); Total Bilirubin 0.4 mg/dL (0.15-1.2); Total Protein 7.1 g/dL (6.6-8.7); Triglycerides 136 mg/dL (0-150); VLDL Cholestrol Calculation 27 mg/dL (0-30)
[2022-05-23] MEDS: metoprolol tartrate 50 mg Tablet PO (08:45)
[2022-05-23] MEDS: ferrous gluconate 324 mg Tablet PO ×2 (08:45→17:48)
[2022-05-23] MEDS: sennosides-docusate Tablet 1 TAB PO (08:45)
[2022-05-23] MEDS: pantoprazole DR 40 mg Tablet PO (08:45)
[2022-05-23] MEDS: amlodipine 5 mg Tablet PO (08:46)
[2022-05-23] MEDS: acetaminophen 325 mg Tablet 650 MG PO (12:40)
--- NOTE | 2022-05-23 20:04 | P.PN_ITS ---
Subjective Subjective: She is awake, appears alert, not communicating, not following directions. at bedside states that this is her baseline she normally is unable to communicate or follow directions. Discussed with regarding sepsis, decubitus ulcer infection, osteomyelitis, discussed also regarding bacteremia with strep anginosus. Discussed concerns with this bacteremia regarding possibility of occult malignancy, although in her case may be secondary to the deep wound infection, bone destruction and osteomyelitis. Discussed also appearance of pyelonephritis. Possibly from hematogenous dissemination with bacteremia. Discussed operative risk will be higher given her overall condition and infec tion, although without source control unfortunately her prognosis would likely be worse. Vitals/I&O/Wt Last Vital Signs Temp 100.6 F H 05/23/22 19:39 Pulse 103 H 05/23/22 19:39 Resp 18 05/23/22 19:39 BP 97/54 05/23/22 19:39 Pulse Ox 97 05/23/22 19:39 O2 Del Method 05/23/22 16:00 05/23/22 05/23/22 05/23/22 06:59 14:59 22:59 Intake Total 420 / 470 1050 / 1050 120 / 1170 Output Total 200 / 200 600 / 600 Balance 220 / 270 1050 / 1050 -480 / 570 Weight last 48 hrs Weight 54.459 kg Weight 53.206 kg Physical Exam Narrative: at bedside. Const: COMMON NORMALS: alert; negative for patient oriented x3 GENERAL APPEARANCE: not cooperative ORIENTATION/CONSCIOUSNESS: Yes awake HENMT: COMMON NORMALS: oropharynx normal Neck/C-Spine: COMMON NORMALS: no JVD Resp: COMMON NORMALS: normal respiratory effort and clear to auscultation bilaterally AUSCULTATION: clear to auscultation bilaterally Cardio: COMMON NORMALS: no JVD, regular rhythm, S1 normal heart sound present, S2 normal heart sound present and No murmurs present (Cardio) RHYTHM: regular rhythm HEART SOUNDS: S1 normal heart sound present and S2 normal heart sound present GI: COMMON NORMALS: Normal to inspection, nondistended, normoactive bowel sounds present, Soft to palpation and non-tender PALPATION: Yes Soft to palpation Extremity: COMMON NORMALS: no joint enlargement and no pedal edema Neuro: COMMON NORMALS: moves all extremities; negative for patient oriented x3 SENSORIUM/ORIENTATION: Yes alert Skin: OTHER: Very deep low sacral ulcer with necrotic tissue, undermining, reaching bone. Urinary Catheter Management: Barraza: Cath Placed During This Visit: yes Reason for Continuing Indwelling Catheter: Acute Urinary Retention or Obstruction Urinary Catheter Date of Insertion: 05/22/22 Urinary Catheter Time of Insertion: 16:00 Data 05/23/22 05:08 05/23/22 05:08 Micro: Microbiology 05/22/22 16:15 Blood Culture - Preliminary Blood NEGATIVE TO DATE 05/22/22 17:38 MRSA Culture - Final Nose 05/22/22 16:05 Blood Culture - Preliminary Blood Strep anginosus group 05/22/22 17:38 Urine Culture - Preliminary Urine,Clean Catch 05/22/22 17:38 Bacterial Antigens - Final Urine Kidney 05/22/22 17:38 Legionella Urinary Antigen - Final Urine Catheterized A&P Assessment and plan (1) Sepsis: Continue Zosyn, vancomycin. Will undergo debridement for source control of decubital wound infection. Additionally possible pyelonephritis, nonobstructive, no stone or hydronephrosis noted on imaging. With bacteremia with strep anginonosus. Present on admission. Ruled in by leukocytosis, endorgan damage with EVA. Source sacral decubitus ulcer Qualifiers: Sepsis type: sepsis due to unspecified organism Sepsis acute organ dysfunction status: with acute organ dysfunction Severe sepsis acute organ dysfunction type: acute renal failure Severe sepsis shock status: without septic shock (2) Sacral decubitus ulcer, stage IV: Surgical assessment appreciated. Start on broad-spectrum antibiotics with vancomycin and Zosyn. Source control. Deep wound with bone destruction, osteomyelitis, may be responsible for strep anginosus bacteremia as well. Depending on the culture results and possible osteomyelitis will decide about span of treatment. (3) Wound infection: Pending source control and debridement of necrotic tissue. (4) Acute kidney injury: Baseline creatinine normal. With mild improvement to 1.5. Hold off on lisinopril and metformin. Strict input output charting. Check urinalysis, urine lites, urine creatinine. Status postinfusion of normal saline at 75 cc/h. Monitor BMP daily. (5) Fracture of surgical neck of left humerus: Patient at baseline is wheelchair and bedbound. (6) H/O: stroke with residual effects: (7) Status post laser lithotripsy of ureteral calculus: (8) Bacteremia: Strep anginosus, suspected secondary to infected sacral decub, deep with necrotic tissue, bone destruction with osteomyelitis, although as seen in other cases may be related to occult GI malignancy. Though less likely, may still need investigation to exclude this down the road after acute illness as discussed with . He does have also iron deficiency anemia. Depending on goals of care. Plan Anemia: Could be secondary to chronic losses versus anemia of chronic disease. Possibly dilutional component with rehydration. We will request Hemoccult. Monitor hemoglobin daily. Noted iron deficiency anemia. B12, folate normal. Sh normal. CODE STATUS: Full code. Cardiac diet. Heparin 5000 every 12 hourly for DVT prophylaxis. Protonix for PUD prophylaxis Attestations Medical Necessity Statement*: Continue admission for assessment of management of sepsis. Coding Level of Care Code Acute Customer Solutions Specialist for [facility] Fwd Diagnoses Sepsis A41.9 Sepsis type: sepsis due to unspecified organism Sepsis acute organ dysfunction status: with acute organ dysfunction Severe sepsis acute organ dysfunction type: acute renal failure Severe sepsis shock status: without septic shock Sacral decubitus ulcer, stage IV L89.154 Wound infection T14.8XXA; L08.9 Acute kidney injury N17.9 Fracture of surgical neck of left humerus S42.212A H/O: stroke with residual effects I69.30 Status post laser lithotripsy of ureteral calculus Z98.890 Bacteremia R78.81
--- NOTE | 2022-05-23 20:14 | ECG_ITS ---
[facility] Test Date: 2022-05-23 Pat Name: Shannan Morin Department: Room: 272 Gender: Female Criminal Justice Faculty: : [id number] Requested By: Selwyn Parikh Order Number: [id number] Reading MD: Peyman Victor M.D. Measurements Intervals [place] Rate: 109 P: 36 VT: 132 QRS: 47 QRSD: 78 T: 44 QT: 313 QTc: 423 Interpretive Statements SINUS TACHYCARDIA Compared to ECG 02/18/2022 13:23:32 Sinus rhythm no longer present Electronically Signed On 05-24-2022 19:57:47 MACHINE TRIMMER by Peyman Victor M.D. [id number]
[2022-05-23] MEDS: HYDROcodone-acetaminophen 5-325 mg Tablet 1 TAB PO (21:17)
[2022-05-24] VITALS (21 sets, daily range): BP systolic 89–131; BP diastolic 51–78; PULSE 86–109; RESP 12–26; TEMP 36.7–38.2; O2SAT 94–100
[2022-05-24] MEDS: piperacillin-tazobactam 3.375 GM in sodium chloride 0.9% (plus) 50 ML IV ×2 (01:47→17:51)
[2022-05-24] MEDS: heparin 5,000 unit/mL INJ 1 mL 5000 UNIT SUBCUT ×2 (05:33→17:50)
[2022-05-24 06:10] LABS: Basophils % 0.3 %; Eosinophils % 0.3 %; Hematocrit 24.2 % (37.0-47.0); Hemoglobin 6.8 g/dL (11.5-15.3); Lymphocytes # 1.4 10^3/uL (0.8-4.8); Lymphocytes % 12.7 %; Mean Corpuscular HGB Conc 28.1 g/dL (30.0-36.0); Mean Corpuscular Hemoglobin 27.4 pg (28.0-34.0); Mean Corpuscular Volume 97.6 fl (81-99); Mean Platelet Volume 9.9 fL (7.4-10.4); Monocytes # 0.6 10^3/uL (0.2-0.9); Monocytes % 5.1 %; Neutrophils # 9.13 10^3/uL (1.8-7.7); Neutrophils % 80.8 %; Nucleated Red Blood Cells % 0 %; Platelet Count 328 10^3/cmm (130-400); Red Blood Count 2.48 10^6/uL (4.1-5.3); Red Cell Distribution Width 14.6 % (12.1-15.1); White Blood Count 11.3 10^3/uL (4.0-10.0)
[2022-05-24 06:29] LABS: Alanine Aminotransferase 52 U/L (0-33); Albumin Level 1.9 g/dL (3.5-5.2); Alkaline Phosphatase 157 U/L (35-105); Anion Gap 13.1 (5-19); Aspartate Amino Transferase 39 U/L (0-32); Blood Urea Nitrogen 28 mg/dL (8-23); Calcium 9.1 mg/dL (8.5-10.5); Carbon Dioxide 20 mmol/L (22-29); Chloride 110 mmol/L (98-107); Globulin 5.1 g/dL (1.3-4.6); Glomerular Filtration Rate 44.7 mL/min (90-130); Glucose 143 mg/dL (65-115); Osmolality Calculated 296 mOsm/kg (285-295); Potassium 4.1 mmol/L (3.5-5.1); Sodium 139 mmol/L (136-145); Total Bilirubin 0.3 mg/dL (0.15-1.2)
--- NOTE | 2022-05-24 06:33 | P.PN_ITS ---
Subjective Subjective: Patient overall seems to be a little bit better. Tissue cultures so far shows gram-negative rods and blood culture showed Organism 1 Strep anginosus group Growth 2BOTTLES group. Patient is scheduled today for surgical debridement in the OR. CT of the abdomen pelvis was obtained on 05/22/2022 and did show 1. Large decubitus ulcer over the distal sacrum and coccyx.? The defect extends to the bone of the coccyx. 2.? Partial destruction and/or debridement of the proximal segments of the coccyx.? This is consistent with osteomyelitis. 3. Presacral soft tissue infection with small gas bubbles but no discrete drainable abscess. 4. Mild stranding around the left renal pelvis and proximal ureter without a calculus or hydronephrosis.? This could represent scarring or infection of the left renal collecting system. Medications: Reviewed: Yes Vitals/I&O/Wt Last Vital Signs Temp 100.1 F H 05/24/22 04:34 Pulse 103 H 05/24/22 06:00 Resp 20 H 05/24/22 04:34 BP 102/64 05/24/22 04:34 Pulse Ox 94 05/24/22 04:34 O2 Del Method 05/23/22 20:00 05/23/22 05/23/22 05/24/22 14:59 22:59 06:59 Intake Total 1050 / 1050 200 / 1250 50 / 1300 Output Total 600 / 600 350 / 950 Balance 1050 / 1050 -400 / 650 -300 / 350 Weight last 48 hrs Weight 125 lb 3 oz Weight 120 lb 1 oz Weight 117 lb 4.8 oz Physical Exam Narrative: Patient is more alert and less lethargic Mild to moderate distress BMI 25.3 Head and neck examination PERRLA no masses no cervical lymphadenopathy no jaundice Lower back dressing in place. Patient spouse bedside and he verbalized his understanding with the procedure Urinary Catheter Management: Barraza: Cath Placed During This Visit: yes Reason for Continuing Indwelling Catheter: Other Urinary Catheter Date of Insertion: 05/22/22 Urinary Catheter Time of Insertion: 16:00 Data 05/24/22 05:38 05/24/22 05:38 Micro: Microbiology 05/22/22 16:15 Blood Culture - Preliminary Blood NEGATIVE TO DATE 05/22/22 17:38 MRSA Culture - Final Nose 05/22/22 16:05 Blood Culture - Preliminary Blood Strep anginosus group 05/22/22 17:38 Urine Culture - Preliminary Urine,Clean Catch A&P Assessment and plan (1) Sacral decubitus ulcer, stage IV: After history taking physical examination and reviewing the chart and images with my personal interpretation of the extensive nature of the pressure injury of sacral ulcer stage IV. Patient will require surgical debridement in the OR. Indications, risks, benefits and alternatives all discussed with the patient and her spouse and he agreed to proceed accordingly. Stating that the patient will require longer term wound care. And nutrition optimization. I did talk with the spouse that Down the road patient would benefit from a barium enema versus a colonoscopy. Particularly that the patient never had a colonoscopy before Assurance and education All questions have been answered and all concerns have been addressed to patient's satisfaction. Attestations Medical Necessity Statement*: Per admitting service Coding Level of Care Code Acute Salt Manager for g Fwd Diagnoses Sacral decubitus ulcer, stage IV L89.154
[2022-05-24] MEDS: sodium chloride 0.9% 1,000 ML 30 ML IV (07:42)
--- NOTE | 2022-05-24 07:45 | P.ANESASSM_ITS ---
Pre-Anesthetic Assessment Height/Weight: Height 1.5 m Weight 56.699 kg Temp Pulse Resp BP Pulse Ox O2 Del Method 98.1 F 108 H 18 131/64 100 05/24/22 07:41 05/24/22 07:41 05/24/22 07:41 05/24/22 07:41 05/24/22 07:41 05/24/22 07:41 Preop Diagnosis: Sacral ulcer stage IV pressure injury Operation Date: 05/24/22 08:10 Proposed Procedures p debridement of sacral wound(Not Applicable) - Sukh Denis MD Familial anesthetic complications: None Was Beta Pearl taken within 24 hours: N/A Was Clonidine taken within 24 hours: N/A Last intake: Intake Last Liquid Date 05/23/22 Last Liquid Time 18:00 Last Solid Date 05/23/22 Last Solid Time 21:00 Social No alcohol and No tobacco Exam alert, clear to auscultation bilaterally and regular rate & rhythm Airway Dentition: other (no teeth) CV/HEM Anemia and Hypertension Chronic Renal Insufficiency Metabolic Diabetes Mellitus Neuropsych Cerebrovascular Accident (hemiparesis) Anesthetic Plan ASA status: 4 Anesthesia: MAC Risk of > 500 ml blood loss (7ml/kg in children): No Medications/Allergies Home Medications Medication Instructions Recorded Confirmed Last Taken Type clopidogrel 75 mg tablet 75 mg PO DAILY #90 tabs 08/20/21 05/23/22 02/11/22 Rx nystatin 100,000 unit/gram topical See Rx Instructions .Route 08/22/21 05/23/22 02/17/22 Rx cream .COMPLEX #30 grams amlodipine 5 mg tablet 5 mg PO DAILY #30 tabs 02/07/22 05/23/22 02/17/22 Rx metoprolol tartrate 50 mg tablet 50 mg PO BID #60 tabs 02/07/22 05/23/22 02/17/22 Rx sennosides 8.6 mg-docusate sodium 1 tab PO DAILY #20 tabs 02/07/22 05/23/22 02/17/22 Rx 50 mg tablet (Stool Softener-Laxative) metformin 500 mg tablet 500 mg PO BID 02/18/22 05/23/22 02/17/22 History lisinopril 20 mg tablet 20 mg PO DAILY 05/23/22 05/23/22 Unknown History Allergies Allergy/AdvReac Type Severity Reaction Status Date / Time No Known Allergies Allergy Verified 05/22/22 09:14 Current Medications Generic Name Dose Route Start Last Admin Trade Name Freq PRN Reason Stop Dose Admin Acetaminophen 650 mg 05/22/22 15:45 05/23/22 12:40 Acetaminophen 325 Mg Tablet PO 650 mg Q6H PRN Administration Mild/Mod Pain Or Temp >/= 101 Hydrocodone Bitart/Acetaminophen 1 tab 05/22/22 15:45 05/23/22 21:17 Hydrocodone-Acetaminophen 5-325 Mg Tablet PO 1 tab Q8H PRN Administration MODERATE TO SEVERE PAIN Ferrous Gluconate 324 mg 05/22/22 18:00 05/23/22 17:48 Ferrous Gluconate 324 Mg Tablet PO 324 mg BIDWM OMAYRA Administration Heparin Sodium (Porcine) 5,000 unit 05/22/22 17:00 05/24/22 05:33 Heparin 5,000 Unit/Ml Inj 1 Ml SUBCUT 5,000 unit Q12H OMAYRA Administration Piperacillin Sod/Tazobactam 50 mls @ 12.5 mls/hr 05/22/22 17:00 05/24/22 05:58 Sod 3.375 gm/ Sodium Chloride IV Infused Q8H OMAYRA Infusion Vancomycin HCl 750 mg/ Sodium 250 mls @ 250 mls/hr 05/22/22 22:00 05/22/22 23:55 Chloride IV Infused Q36H OMAYRA Infusion Sodium Chloride 1,000 mls @ 30 mls/hr 05/24/22 07:30 05/24/22 07:42 Sodium Chloride 0.9% IV 05/25/22 07:29 30 mls/hr .Q24H OMAYRA Administration Pantoprazole Sodium 40 mg 05/23/22 09:00 05/23/22 08:[address] 40 Mg Tablet PO 40 mg DAILY OMAYRA Administration Senna/Docusate Sodium 1 tab 05/23/22 09:00 05/23/22 08:45 Sennosides-Docusate Tablet PO 1 tab DAILY OMAYRA Administration PFSH Anesthesia Medical History (Updated 05/23/22 @ 20:17 by Selwyn Parikh MD) Acute encephalopathy Acute kidney injury Essential hypertension H/O: stroke with residual effects History of diabetes mellitus Hypercholesterolemia Hypomagnesemia Lactic acidosis Left hemiparesis Obstruction of left ureteropelvic junction (UPJ) due to stone Obstructive pyelonephritis On statin therapy 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 Stented, antibiotics, delayed laser lithotripsy and stent replacement UTI (urinary tract infection) Surgical History (Updated 05/22/22 @ 17:15 by Faisla Sultana MD) S/P ureteral stent placement Status post laser lithotripsy of ureteral calculus Family History Father No problems noted. Mother No problems noted. Social History Smoking and tobacco status: former smoker Alcohol intake: current Alcohol intake frequency: holidays/special occasions only Marital status: Current occupational status: retired History of recent travel: No Data Anesthesia 05/24/22 05:38 05/24/22 05:38 Short CBC 05/22/22 05/23/22 05/24/22 Range/Units 16:05 05:08 05:38 WBC 24.4 H 16.5 H 11.3 H (4.0-10.0) 10^3/uL Hgb 8.5 L 7.3 L 6.8 L (11.5-15.3) g/dL Hct 28.3 L 24.2 L 24.2 L (37.0-47.0) % MCV 90.1 90.3 97.6 D (81-99) fl Plt Count 479 H 362 328 (130-400) 10^3/cmm Neut % (Auto) 88.8 78.3 80.8 % Neut # (Auto) 21.65 H 12.92 H 9.13 H (1.8-7.7) 10^3/uL BMP 05/22/22 05/23/22 05/24/22 16:05 05:08 05:38 Sodium 132 L 134 L 139 Potassium 4.6 4.2 4.1 Chloride 97 L 104 110 H Carbon Dioxide 18 L 19 L 20 L BUN 28 H 31 H 28 H Creatinine 1.6 H 1.5 H 1.2 H Glucose 333 H 154 H 143 H Calcium 9.4 8.7 9.1 Liver Function 05/22/22 05/23/22 05/24/22 Range/Units 16:05 05:08 05:38 Total Bilirubin 0.3 0.4 0.3 (0.15-1.2) mg/dL AST 44 H 51 H 39 H (0-32) U/L ALT 53 H 56 H 52 H (0-33) U/L Alkaline Phosphatase 183 H 161 H 157 H (35-105) U/L Albumin 2.5 L 2.0 L 1.9 L (3.5-5.2) g/dL Urine 05/22/22 Range/Units 17:38 Urine Color Yellow (Yellow) Urine Appearance Hazy A (CLEAR) Urine pH 5 (5-7) Ur Specific [place] 1.020 (1.005-1.030) Urine Protein Neg (Negative) Urine Glucose (UA) Norm (Normal) Urine Ketones Negative (Negative) Urine Nitrate Negative (Negative) Urine Bilirubin Neg (Negative) Ur Leukocyte Esterase 2+ H (Negative) Urine RBC 0-4 H (0-2) /hpf Urine WBC Too numerous to cnt H (0-5) /hpf Coags 05/22/22 05/22/22 05/22/22 16:05 16:05 16:05 ESR 7 PT 15.60 H INR 1.21 H C-Reactive Protein 186.7 H Microbiology 05/22/22 16:15 Blood Culture - Preliminary Blood NEGATIVE TO DATE 05/22/22 17:38 MRSA Culture - Final Nose 05/22/22 16:05 Blood Culture - Preliminary Blood Strep anginosus group 05/22/22 17:38 Urine Culture - Preliminary Urine,Clean Catch Cardiac Studies: No Data to Display
[2022-05-24] MEDS: lidocaine 1% INJ 20 mL XX (08:14)
--- NOTE | 2022-05-24 08:30 | PM.OP ---
Operative Report Date of procedure: May 24, 2022 Pre-op diagnosis: Preop Diagnosis Sacral ulcer stage IV pressure injury Post-op diagnosis: The same Procedure done: Sharp debridement of sacral pressure injury ulcer Implants: Surgicel followed by Kerlix for packing Specimens removed/disposition: Tissues for cultures and sensitivities Surgeon: Sukh Denis MD Vice Admiral: Gemini Ridley Circulating nurse Odette Anesthesia: MAC (cook box filler See) Estimated blood loss (mL): 20 IV fluids (mL): 400 Procedure: After identifying the patient holding area,patient was then taken to the operative suite,was placed in supine position then lright lateral position, all pressure points were padded and patient was appropriately secured to the bed., Patient was already on therapeutic IV antibiotic,IV propofol was infused by the anesthesia provider, prep and drape of the periwound region over the lower back and upper thighs. Was done under the usual sterile technique. Time-out was done verifying the patient's name/date of /planned procedure and destination after the procedure, all were in agreement. Malodorous was appreciated from the wound and 3 pieces of gauze were already in the wound for packing coming from the floor. All that was removed. Started by excising and debriding sharply the unhealthy necrotic indurated tissues of the wound using curved Tejada scissor, central necrotic tissues include segments of bones of the coccyx that were removed sent for cultures and sensitivity.. Incision was created at the skin level and went all the way down to the subcutaneous tissues and including the underlying muscle tissues and underlying bone. Undermining of the wound was more appreciated towards the left side of the wound. PreDebridement measurements 7 x 7.5 x 3 cm PostDebridement measurements 9.5 x 10 x [address] to the bone Stage IV sacral pressure injury ulcer Copious and extensive irrigation of the wound was done using a liter of Vashe solution followed by 1 L of Pulsavac warm saline, followed by appropriate hemostasis using Bovie cauterization that was completed by placement of one piece of Surgicel, packing of the wound was done with Kerlix impregnated in lidocaine 1%, followed by ABDs, and surgical pants. Patient tolerated the procedure well, count of instruments, needle and sponges were completed at the end of the procedure. Patient was then taken to the recovery area in stable condition. I was present for the whole entire procedure
--- NOTE | 2022-05-24 08:39 | P.PCN_ITS ---
PACU note Narrative: VSS, Good respiratory effort, report to SENIOR MICROSTRATEGY DEVELOPER Exam: awake
--- NOTE | 2022-05-24 08:39 | PM.PACU ---
PACU note Narrative: VSS, Good respiratory effort, report to FINANCIAL DIRECTOR Exam: awake
--- NOTE | 2022-05-24 10:47 | PM.PN ---
Subjective Subjective: He is sleeping after undergoing debridement of sacral wound today. Does not appear in distress. at bedside. Vitals/I&O/Wt Last Vital Signs Temp 100.8 F H 05/24/22 08:52 Pulse 92 05/24/22 08:52 Resp 18 05/24/22 08:52 BP 104/61 05/24/22 08:52 Pulse Ox 98 05/24/22 08:52 O2 Del Method 05/24/22 08:52 05/23/22 05/24/22 05/24/22 22:59 06:59 14:59 Intake Total 200 / 1250 50 / 1300 900 / 900 Output Total 600 / 600 350 / 950 / Balance -400 / 650 -300 / 350 880 / 880 Weight last 48 hrs Weight 56.699 kg Weight 56.784 kg Weight 54.459 kg Weight 53.206 kg Physical Exam Narrative: at bedside. Const: COMMON NORMALS: negative for patient oriented x3 GENERAL APPEARANCE: not cooperative OTHER: Sleeping HENMT: COMMON NORMALS: oropharynx normal Neck/C-Spine: COMMON NORMALS: no JVD Resp: COMMON NORMALS: normal respiratory effort and clear to auscultation bilaterally AUSCULTATION: clear to auscultation bilaterally Cardio: COMMON NORMALS: no JVD, regular rhythm, S1 normal heart sound present, S2 normal heart sound present and No murmurs present (Cardio) RHYTHM: regular rhythm HEART SOUNDS: S1 normal heart sound present and S2 normal heart sound present GI: COMMON NORMALS: Normal to inspection, nondistended, normoactive bowel sounds present, Soft to palpation and non-tender PALPATION: Yes Soft to palpation Extremity: COMMON NORMALS: no joint enlargement GENERAL: Yes edema (Trace) Neuro: COMMON NORMALS: moves all extremities; negative for patient oriented x3 Skin: OTHER: Very deep low sacral ulcer with necrotic tissue, undermining, reaching bone. Urinary Catheter Management: Barraza: Cath Placed During This Visit: yes Reason for Continuing Indwelling Catheter: Other Urinary Catheter Date of Insertion: 05/22/22 Urinary Catheter Time of Insertion: 16:00 Data 05/24/22 05:38 05/24/22 05:38 Micro: Microbiology 05/22/22 17:38 Urine Culture - Preliminary Urine,Clean Catch Yeast species 05/22/22 16:15 Blood Culture - Preliminary Blood NEGATIVE TO DATE 05/22/22 17:38 MRSA Culture - Final Nose 05/22/22 16:05 Blood Culture - Preliminary Blood Strep anginosus group A&P Assessment and plan (1) Sepsis: Continue Zosyn, vancomycin. Underwent debridement for source control of decubital wound infection. Additionally possible pyelonephritis, nonobstructive, no stone or hydronephrosis noted on imaging. Follow-up cultures. Add fluconazole for yeast in urine with possible ascending pyelonephritis. With bacteremia with strep anginonosus. Discussed again with . Discussed treatment for infection, source control, consideration of further evaluation with endoscopy to exclude GI malignancy depending on goals of care. Present on admission. Ruled in by leukocytosis, endorgan damage with EVA. Source sacral decubitus ulcer Qualifiers: Sepsis acute organ dysfunction status: with acute organ dysfunction Sepsis type: sepsis due to unspecified organism Severe sepsis acute organ dysfunction type: acute renal failure Severe sepsis shock status: without septic shock (2) Sacral decubitus ulcer, stage IV: Status postdebridement of the wound today. Start on broad-spectrum antibiotics with vancomycin and Zosyn. Deep wound with bone destruction, osteomyelitis, may be responsible for strep anginosus bacteremia as well. Depending on the culture results and possible osteomyelitis will decide about span of treatment. (3) Wound infection: As above. (4) Acute kidney injury: Creatinine improving, down to 1.2. Baseline creatinine normal. Hold off on lisinopril and metformin. Strict input output charting. Check urinalysis, urine lites, urine creatinine. Status postinfusion of normal saline at 75 cc/h. Monitor BMP daily. (5) Fracture of surgical neck of left humerus: Patient at baseline is wheelchair and bedbound. (6) H/O: stroke with residual effects: (7) Status post laser lithotripsy of ureteral calculus: (8) Bacteremia: Strep anginosus, suspected secondary to infected sacral decub, deep with necrotic tissue, bone destruction with osteomyelitis, although as seen in other cases may be related to occult GI malignancy. Though less likely, may still need investigation to exclude this down the road after acute illness as discussed with . He does have also iron deficiency anemia. Depending on goals of care. Plan Anemia: Transfuse 1 unit RBC . Increase PPI to twice daily. Follow-up Hemoccult. Follow-up blood counts. Could be secondary to chronic losses versus anemia of chronic disease. Possibly dilutional component with rehydration. We will request Hemoccult. Monitor hemoglobin daily. Noted iron deficiency anemia. B12, folate normal. TSh normal. CODE STATUS: Full code. Cardiac diet. Heparin 5000 every 12 hourly for DVT prophylaxis. Protonix for PUD prophylaxis Attestations Medical Necessity Statement*: Continue admission for assessment and management of sepsis with sacral wound infection, with bacteremia, complicated UTI with nonobstructive pyelonephritis, anemia. Coding Level of Care Code Acute Senior Software Test Engineer for g Fwd Exam Comprehensive Diagnoses Sepsis A41.9 Sepsis acute organ dysfunction status: with acute organ dysfunction Sepsis type: sepsis due to unspecified organism Severe sepsis acute organ dysfunction type: acute renal failure Severe sepsis shock status: without septic shock Sacral decubitus ulcer, stage IV L89.154 Wound infection T14.8XXA; L08.9 Acute kidney injury N17.9 Fracture of surgical neck of left humerus S42.212A H/O: stroke with residual effects I69.30 Status post laser lithotripsy of ureteral calculus Z98.890 Bacteremia R78.81
[2022-05-24] MEDS: sodium chloride 0.9% (100 ml) 100 ML (14:21)
[2022-05-24] MEDS: acetaminophen 325 mg Tablet 650 MG PO (14:37)
[2022-05-24] MEDS: pantoprazole DR 40 mg Tablet PO (17:49)
[2022-05-24] MEDS: ferrous gluconate 324 mg Tablet PO (17:49)
[2022-05-24] MEDS: metoprolol tartrate 25 mg Tablet PO (17:50)
[2022-05-24] MEDS: fluconazole premix 200 MG/100 ML PREMIX 100 MG IV (17:51)
[2022-05-24 22:48] LABS: Glucose Point of Care 213 mg/dL (70-110)
[2022-05-25] VITALS (9 sets, daily range): BP systolic 117–137; BP diastolic 66–77; PULSE 89–115; RESP 14–22; TEMP 37.1–38.9; O2SAT 91–98
[2022-05-25] MEDS: piperacillin-tazobactam 3.375 GM in sodium chloride 0.9% (plus) 50 ML IV ×3 (00:38→17:14)
[2022-05-25] MEDS: heparin 5,000 unit/mL INJ 1 mL 5000 UNIT SUBCUT ×2 (04:21→17:14)
[2022-05-25 05:42] LABS: Basophils % 0.4 %; Eosinophils # 0.1 10^3/uL (0.0-0.8); Eosinophils % 0.5 %; Hematocrit 25.4 % (37.0-47.0); Hemoglobin 7.7 g/dL (11.5-15.3); Lymphocytes # 1.5 10^3/uL (0.8-4.8); Lymphocytes % 14.2 %; Mean Corpuscular HGB Conc 30.3 g/dL (30.0-36.0); Mean Corpuscular Hemoglobin 26.6 pg (28.0-34.0); Mean Corpuscular Volume 87.6 fl (81-99); Mean Platelet Volume 9.8 fL (7.4-10.4); Monocytes # 0.6 10^3/uL (0.2-0.9); Monocytes % 5.2 %; Neutrophils # 8.63 10^3/uL (1.8-7.7); Neutrophils % 79.2 %; Nucleated Red Blood Cells % 0 %; Platelet Count 336 10^3/cmm (130-400); Red Cell Distribution Width 17.2 % (12.1-15.1); White Blood Count 10.9 10^3/uL (4.0-10.0)
[2022-05-25 06:12] LABS: Alanine Aminotransferase 48 U/L (0-33); Albumin Level 1.9 g/dL (3.5-5.2); Alkaline Phosphatase 179 U/L (35-105); Anion Gap 11.9 (5-19); Aspartate Amino Transferase 37 U/L (0-32); Blood Urea Nitrogen 30 mg/dL (8-23); Calcium 9.2 mg/dL (8.5-10.5); Carbon Dioxide 21 mmol/L (22-29); Chloride 112 mmol/L (98-107); Globulin 5.3 g/dL (1.3-4.6); Glomerular Filtration Rate 55.1 mL/min (90-130); Glucose 138 mg/dL (65-115); Osmolality Calculated 300 mOsm/kg (285-295); Potassium 3.9 mmol/L (3.5-5.1); Sodium 141 mmol/L (136-145); Total Bilirubin 0.5 mg/dL (0.15-1.2); Total Protein 7.2 g/dL (6.6-8.7)
[2022-05-25] MEDS: metoprolol tartrate 25 mg Tablet PO ×2 (08:28→17:14)
[2022-05-25] MEDS: pantoprazole DR 40 mg Tablet PO ×2 (08:28→17:14)
[2022-05-25] MEDS: sennosides-docusate Tablet 1 TAB PO (08:28)
[2022-05-25] MEDS: ferrous gluconate 324 mg Tablet PO ×2 (08:28→17:14)
--- NOTE | 2022-05-25 09:16 | PC.SOCIAL ---
IMM update IMM updated with patient and . Verbalized an understanding. Copy Pg 2 provided. Initialled, dated, timed, and placed in chart.
--- NOTE | 2022-05-25 16:31 | P.PN_ITS ---
Subjective Subjective: Patient overall seems to be improving a little bit. at bedside Medications: Reviewed: Yes Vitals/I&O/Wt Last Vital Signs Temp 98.7 F 05/25/22 11:51 Pulse 100 05/25/22 11:51 Resp 16 05/25/22 11:51 BP 137/76 05/25/22 11:51 Pulse Ox 94 05/25/22 11:51 O2 Del Method 05/25/22 11:51 05/25/22 05/25/22 05/25/22 06:59 14:59 22:59 Intake Total 50 / 1129 240 / 240 Output Total 400 / 420 Balance -350 / 709 240 / 240 Weight last 48 hrs Weight 127 lb 4 oz Weight 125 lb Weight 125 lb 3 oz Physical Exam Narrative: Patient is more alert Mild to moderate distress BMI 25.3 Head and neck examination PERRLA no masses no cervical lymphadenopathy no jaundice Lower back wound packing was removed as well as Surgicel shows residual necrotic tissues but overall looks better Patient spouse bedside and he verbalized his understanding with the procedure Urinary Catheter Management: Barraza: Cath Placed During This Visit: yes Reason for Continuing Indwelling Catheter: Acute Urinary Retention or Obstruction Urinary Catheter Date of Insertion: 05/22/22 Urinary Catheter Time of Insertion: 16:00 Data 05/25/22 05:21 05/25/22 05:11 Micro: Microbiology 05/24/22 08:13 Gram Stain - Final Buttock Wound Culture - Preliminary Gram Negative Rods Gram Negative Rods#2 05/22/22 16:15 Blood Culture - Preliminary Blood Strep anginosus group 05/22/22 16:05 Blood Culture - Preliminary Blood Strep anginosus group A&P Assessment and plan (1) Sacral decubitus ulcer, stage IV: 1-nutrition optimization 2-wound care in the form of daily packing using wet-to-dry Kerlix followed by ABD 3-management of medical comorbidities per hospitalist service 4-physical therapy consultation when needed 5-assurance and education 6-Follow on cultures and sensitivity All questions have been answered and all concerns have been addressed to patient's satisfaction. Attestations Medical Necessity Statement*: Per admitting service Coding Level of Care Code Acute Telecommunications Officer for [facility] Fwd Diagnoses Sacral decubitus ulcer, stage IV L89.154
[2022-05-25] MEDS: fluconazole premix 200 MG/100 ML PREMIX 100 MG IV (17:14)
[2022-05-25] MEDS: acetaminophen 325 mg Tablet 650 MG PO (17:14)
--- NOTE | 2022-05-25 20:14 | PM.PN ---
Subjective Subjective: Appears more comfortable today. feels she is appearing better. Fevers so far have been improving, but again febrile this evening. Medications: Reviewed: Yes Vitals/I&O/Wt Last Vital Signs Temp 99.3 F 05/25/22 20:00 Pulse 101 H 05/25/22 20:00 Resp 14 05/25/22 20:00 BP 130/72 05/25/22 20:00 Pulse Ox 98 05/25/22 20:00 O2 Del Method 05/25/22 16:00 05/25/22 05/25/22 05/25/22 06:59 14:59 22:59 Intake Total 50 / 1129 290 / 290 440 / 730 Output Total 400 / 420 Balance -350 / 709 290 / 290 440 / 730 Weight last 48 hrs Weight 57.72 kg Weight 56.699 kg Weight 56.784 kg Physical Exam Narrative: at bedside. Const: COMMON NORMALS: alert; negative for patient oriented x3 GENERAL APPEARANCE: not cooperative ORIENTATION/CONSCIOUSNESS: Yes awake OTHER: Nonverbal. HENMT: COMMON NORMALS: oropharynx normal Neck/C-Spine: COMMON NORMALS: no JVD Resp: COMMON NORMALS: normal respiratory effort and clear to auscultation bilaterally AUSCULTATION: clear to auscultation bilaterally Cardio: COMMON NORMALS: no JVD, regular rhythm, S1 normal heart sound present, S2 normal heart sound present and No murmurs present (Cardio) RHYTHM: regular rhythm HEART SOUNDS: S1 normal heart sound present and S2 normal heart sound present GI: COMMON NORMALS: Normal to inspection, nondistended, normoactive bowel sounds present, Soft to palpation and non-tender PALPATION: Yes Soft to palpation Extremity: COMMON NORMALS: no joint enlargement and no pedal edema GENERAL: Yes edema (Trace) Neuro: COMMON NORMALS: moves all extremities; negative for patient oriented x3 SENSORIUM/ORIENTATION: Yes alert Skin: OTHER: Very deep low sacral ulcer with necrotic tissue, undermining, reaching bone. Urinary Catheter Management: Barraza: Cath Placed During This Visit: yes Reason for Continuing Indwelling Catheter: Acute Urinary Retention or Obstruction Urinary Catheter Date of Insertion: 05/22/22 Urinary Catheter Time of Insertion: 16:00 Data 05/25/22 05:21 05/25/22 05:11 Micro: Microbiology 05/24/22 08:13 Gram Stain - Final Buttock Wound Culture - Preliminary Gram Negative Rods Gram Negative Rods#2 05/22/22 16:15 Blood Culture - Preliminary Blood Strep anginosus group 05/22/22 16:05 Blood Culture - Preliminary Blood Strep anginosus group A&P Assessment and plan (1) Sepsis: Gram-negative rods x2 and wound culture from 05/24. Wound culture 05/22 growing E. coli, Klebsiella, strep pyogenes. Yeast species in urine culture. Continue Zosyn, vancomycin. Status post debridement for source control of decubital wound infection. Additionally suspected complicated UTI with pyelonephritis, nonobstructive, no stone or hydronephrosis noted on imaging. Follow-up cultures. Continue fluconazole for yeast in urine with possible ascending pyelonephritis. With bacteremia with strep anginonosus. Discussed again with . Discussed treatment for infection, source control, consideration of further evaluation with endoscopy to exclude GI malignancy depending on goals of care. Present on admission. Ruled in by leukocytosis, endorgan damage with EVA. Source sacral decubitus ulcer Qualifiers: Sepsis type: sepsis due to unspecified organism Sepsis acute organ dysfunction status: with acute organ dysfunction Severe sepsis acute organ dysfunction type: acute renal failure Severe sepsis shock status: without septic shock (2) Sacral decubitus ulcer, stage IV: Status postdebridement of the wound 05/24. Continue broad-spectrum antibiotics with vancomycin and Zosyn. With osteomyelitis, will need a 6 weeks intravenous antibiotics after discharge. states would be able to administer if taught how. Will require catheter, but also with bacteremia currently. Repeat blood culture. Deep wound with bone destruction, osteomyelitis, may be responsible for strep anginosus bacteremia as well. Depending on the culture results and possible osteomyelitis will decide about span of treatment. (3) Wound infection: As above. (4) Acute kidney injury: Creatinine improving Baseline creatinine normal. Hold off on lisinopril and metformin. Strict input output charting. Check urinalysis, urine lites, urine creatinine. Status postinfusion of normal saline at 75 cc/h. Monitor BMP daily. (5) Fracture of surgical neck of left humerus: Patient at baseline is wheelchair and bedbound. (6) H/O: stroke with residual effects: (7) Status post laser lithotripsy of ureteral calculus: (8) Bacteremia: Strep anginosus, suspected secondary to infected sacral decub, deep with necrotic tissue, bone destruction with osteomyelitis, although as seen in other cases may be related to occult GI malignancy. Though less likely, may still need investigation to exclude this down the road after acute illness as discussed with . He does have also iron deficiency anemia. Depending on goals of care. Plan Anemia: Transfuse 1 unit RBC . Increase PPI to twice daily. Follow-up Hemoccult. Follow-up blood counts. Could be secondary to chronic losses versus anemia of chronic disease. Possibly dilutional component with rehydration. We will request Hemoccult. Monitor hemoglobin daily. Noted iron deficiency anemia. B12, folate normal. TSh normal. CODE STATUS: Full code. Cardiac diet. Heparin 5000 every 12 hourly for DVT prophylaxis. Protonix for PUD prophylaxis Attestations Medical Necessity Statement*: Continue admission for assessment of sepsis, wound infection, sacral osteomyelitis, complicated by bacteremia, also requiring access for protracted antibiotic course discharge. Coding Level of Care Code Acute Subsurface Augmentee Operator for [facility] Fwd Diagnoses Sepsis A41.9 Sepsis type: sepsis due to unspecified organism Sepsis acute organ dysfunction status: with acute organ dysfunction Severe sepsis acute organ dysfunction type: acute renal failure Severe sepsis shock status: without septic shock Sacral decubitus ulcer, stage IV L89.154 Wound infection T14.8XXA; L08.9 Acute kidney injury N17.9 Fracture of surgical neck of left humerus S42.212A H/O: stroke with residual effects I69.30 Status post laser lithotripsy of ureteral calculus Z98.890 Bacteremia R78.81
[2022-05-25] MEDS: vancomycin 750 MG in sodium chloride 0.9% 250 ML 250 MG IV (21:19)
[2022-05-26] VITALS (10 sets, daily range): BP systolic 133–178; BP diastolic 73–90; PULSE 72–104; RESP 14–21; TEMP 36.8–38.4; O2SAT 93–100
[2022-05-26] MEDS: piperacillin-tazobactam 3.375 GM in sodium chloride 0.9% (plus) 50 ML IV ×3 (00:31→17:47)
[2022-05-26] MEDS: acetaminophen 325 mg Tablet 650 MG PO ×2 (00:31→17:43)
[2022-05-26] MEDS: heparin 5,000 unit/mL INJ 1 mL 5000 UNIT SUBCUT ×2 (04:56→17:43)
[2022-05-26 05:52] LABS: Basophils % 0.4 %; Eosinophils # 0.1 10^3/uL (0.0-0.8); Eosinophils % 0.8 %; Hematocrit 26.4 % (37.0-47.0); Hemoglobin 7.7 g/dL (11.5-15.3); Lymphocytes % 19.9 %; Mean Corpuscular HGB Conc 29.2 g/dL (30.0-36.0); Mean Corpuscular Hemoglobin 26.6 pg (28.0-34.0); Mean Platelet Volume 10.2 fL (7.4-10.4); Monocytes # 0.7 10^3/uL (0.2-0.9); Monocytes % 6.8 %; Neutrophils # 7.07 10^3/uL (1.8-7.7); Neutrophils % 71.6 %; Nucleated Red Blood Cells % 0 %; Platelet Count 302 10^3/cmm (130-400); Red Cell Distribution Width 16.9 % (12.1-15.1); White Blood Count 9.9 10^3/uL (4.0-10.0)
[2022-05-26 06:16] LABS: Alanine Aminotransferase 46 U/L (0-33); Albumin Level 2.1 g/dL (3.5-5.2); Alkaline Phosphatase 173 U/L (35-105); Anion Gap 11.7 (5-19); Aspartate Amino Transferase 30 U/L (0-32); Blood Urea Nitrogen 28 mg/dL (8-23); Calcium 9.1 mg/dL (8.5-10.5); Carbon Dioxide 22 mmol/L (22-29); Chloride 121 mmol/L (98-107); Glomerular Filtration Rate 55.1 mL/min (90-130); Glucose 151 mg/dL (65-115); Osmolality Calculated 320 mOsm/kg (285-295); Potassium 3.7 mmol/L (3.5-5.1); Sodium 151 mmol/L (136-145); Total Bilirubin 0.3 mg/dL (0.15-1.2); Total Protein 7.1 g/dL (6.6-8.7)
[2022-05-26] MEDS: dextrose 5% 1,000 ML 30 ML IV (10:19)
[2022-05-26] MEDS: sennosides-docusate Tablet 1 TAB PO (10:20)
[2022-05-26] MEDS: pantoprazole DR 40 mg Tablet PO ×2 (10:20→17:43)
[2022-05-26] MEDS: metoprolol tartrate 25 mg Tablet PO ×2 (10:20→17:43)
[2022-05-26] MEDS: ferrous gluconate 324 mg Tablet PO ×2 (10:20→17:43)
[2022-05-26] MEDS: fluconazole premix 200 MG/100 ML PREMIX 100 MG IV (17:44)
--- NOTE | 2022-05-26 18:01 | P.PN_ITS ---
Subjective Subjective: She is overall doing better per her . She is more alert, appears more comfortable. Appetite appears to be improving as well. Medications: Reviewed: Yes Vitals/I&O/Wt Last Vital Signs Temp 101.2 F H 05/26/22 16:00 Pulse 104 H 05/26/22 16:00 Resp 17 05/26/22 16:00 BP 139/75 05/26/22 16:00 Pulse Ox 97 05/26/22 16:00 O2 Del Method 05/26/22 16:00 05/26/22 05/26/22 05/26/22 06:59 14:59 22:59 Intake Total 170 / 1200 290 / 290 Output Total 200 / 750 600 / 600 Balance -30 / 450 290 / 290 -600 / -310 Weight last 48 hrs Weight 56.699 kg Weight 57.72 kg Physical Exam Narrative: at bedside feeding her. Const: COMMON NORMALS: alert; negative for patient oriented x3 GENERAL APPEARANCE: not cooperative ORIENTATION/CONSCIOUSNESS: Yes awake OTHER: Nonverbal. HENMT: COMMON NORMALS: oropharynx normal Neck/C-Spine: COMMON NORMALS: no JVD Resp: COMMON NORMALS: normal respiratory effort and clear to auscultation bilaterally AUSCULTATION: clear to auscultation bilaterally Cardio: COMMON NORMALS: no JVD, regular rhythm, S1 normal heart sound present, S2 normal heart sound present and No murmurs present (Cardio) RHYTHM: regular rhythm HEART SOUNDS: S1 normal heart sound present and S2 normal heart sound present GI: COMMON NORMALS: Normal to inspection, nondistended, normoactive bowel sounds present, Soft to palpation and non-tender PALPATION: Yes Soft to palpation Extremity: COMMON NORMALS: no joint enlargement and no pedal edema Neuro: COMMON NORMALS: moves all extremities; negative for patient oriented x3 SENSORIUM/ORIENTATION: Yes alert Skin: OTHER: Sacral dressing. Urinary Catheter Management: Barraza: Cath Placed During This Visit: yes Reason for Continuing Indwelling Catheter: Acute Urinary Retention or Obstruction Urinary Catheter Date of Insertion: 05/22/22 Urinary Catheter Time of Insertion: 16:00 Data 05/26/22 05:13 05/26/22 05:13 Micro: Microbiology 05/22/22 16:15 Blood Culture - Final Blood Strep anginosus group 05/22/22 16:05 Blood Culture - Final Blood Strep anginosus group 05/24/22 08:13 Gram Stain - Final Buttock Wound Culture - Final Escherichia coli Klebsiella pneumoniae 05/22/22 17:38 Urine Culture - Final Urine,Clean Catch Heather albicans 05/25/22 20:33 Blood Culture - Preliminary Blood SPECIMEN COLLECTED 05/25/22 20:51 Blood Culture - Preliminary Blood SPECIMEN COLLECTED A&P Assessment and plan (1) Sepsis: Improving, with leukocytosis now resolved, fevers less common, but still present, and being febrile 101.2 at 4:00 this afternoon. Follow-up repeat blood culture for clearance of bacteremia. Hold off placement of catheter. Her states will be able to administer antibiotics for her post discharge. Discussed also with case management. Cultures from 05/22 grew E. coli, Klebsiella, strep pyogenes. Cultures from 09/22 from debridement are still pending this morning, currently coming back with E. coli, Klebsiella. Discussed with case management antibiotic anticipate will be Rocephin 1000 mg daily. Yeast species in urine culture coming back as Heather albicans. Continue Diflucan. Continue Zosyn, vancomycin. Status post debridement for source control of decubital wound infection. Additionally suspected complicated UTI with pyelonephritis, nonobstructive, no stone or hydronephrosis noted on imaging. With bacteremia with strep anginonosus. Discussed again with . Discussed treatment for infection, source control, consideration of further evaluation with endoscopy to exclude GI malignancy depending on goals of care. Discussed again with her and with surgery, this will additionally follow-up on outpatient basis. Present on admission. Ruled in by leukocytosis, endorgan damage with EVA. Source sacral decubitus ulcer Qualifiers: Sepsis type: sepsis due to unspecified organism Sepsis acute organ dysfunction status: with acute organ dysfunction Severe sepsis acute organ dysfunction type: acute renal failure Severe sepsis shock status: without septic shock (2) Sacral decubitus ulcer, stage IV: Status postdebridement of the wound 05/24. Continue broad-spectrum antibiotics with vancomycin and Zosyn. With osteomyelitis, will need a 6 weeks intravenous antibiotics after discharge. states would be able to administer if taught how. Will require catheter, but also with bacteremia currently. Repeat blood culture 05/25 pending. Deep wound with bone destruction, osteomyelitis, may be responsible for strep anginosus bacteremia as well. Depending on the culture results and possible osteomyelitis will decide about span of treatment. (3) Wound infection: As above. (4) Acute kidney injury: Creatinine improving Baseline creatinine normal. Hold off on lisinopril and metformin. Strict input output charting. Check urinalysis, urine lites, urine creatinine. Status postinfusion of normal saline at 75 cc/h. Monitor BMP daily. (5) Fracture of surgical neck of left humerus: Patient at baseline is wheelchair and bedbound. (6) H/O: stroke with residual effects: (7) Status post laser lithotripsy of ureteral calculus: (8) Bacteremia: Strep anginosus, suspected secondary to infected sacral decub, deep with necrotic tissue, bone destruction with osteomyelitis, although as seen in other cases may be related to occult GI malignancy. Though less likely, may still need investigation to exclude this down the road after acute illness as discussed with . He does have also iron deficiency anemia. Depending on goals of care. (9) Anemia: Responded to RBC transfusion, so 5 maintaining hemoglobin. Increase PPI to twice daily. Follow-up Hemoccult. Follow-up blood counts. Could be secondary to chronic losses versus anemia of chronic disease. Possibly dilutional component with rehydration. Requested Hemoccult. Monitor hemoglobin daily. Noted iron deficiency anemia. B12, folate normal. TSh normal. As discussed with her , as well as surgery handout, further consideration of endoscopic evaluation on outpatient basis. Plan CODE STATUS: Full code. Cardiac diet. Heparin 5000 every 12 hourly for DVT prophylaxis. Protonix for PUD prophylaxis Attestations Medical Necessity Statement*: Continue admission for assessment management wit h improving sepsis, sacral wound infection, OM, complicated by bacteremia, also with nonobstructive pyelonephritis, post discharge planning and arrangements. Coding Level of Care Code Acute Airplane Mechanic Apprentice for [facility] Fwd Diagnoses Sepsis A41.9 Sepsis type: sepsis due to unspecified organism Sepsis acute organ dysfunction status: with acute organ dysfunction Severe sepsis acute organ dysfunction type: acute renal failure Severe sepsis shock status: without septic shock Sacral decubitus ulcer, stage IV L89.154 Wound infection T14.8XXA; L08.9 Acute kidney injury N17.9 Fracture of surgical neck of left humerus S42.212A H/O: stroke with residual effects I69.30 Status post laser lithotripsy of ureteral calculus Z98.890 Bacteremia R78.81 Anemia D64.9
[2022-05-26] MEDS: vancomycin 1,000 MG in sodium chloride 0.9% 250 ML 250 MG IV (19:48)
[2022-05-26] MEDS: HYDROcodone-acetaminophen 5-325 mg Tablet 1 TAB PO (19:49)
[2022-05-26 20:09] LABS: Sodium 150 mmol/L (136-145)
[2022-05-27] VITALS (7 sets, daily range): BP systolic 129–152; BP diastolic 72–82; PULSE 86–103; RESP 13–20; TEMP 37.1–38.3; O2SAT 94–97
[2022-05-27] MEDS: piperacillin-tazobactam 3.375 GM in sodium chloride 0.9% (plus) 50 ML IV ×3 (00:15→18:21)
[2022-05-27] MEDS: HYDROcodone-acetaminophen 5-325 mg Tablet 1 TAB PO ×3 (03:03→19:35)
[2022-05-27] MEDS: heparin 5,000 unit/mL INJ 1 mL 5000 UNIT SUBCUT ×2 (03:03→17:11)
[2022-05-27 05:17] LABS: Basophils % 0.5 %; Eosinophils # 0.1 10^3/uL (0.0-0.8); Eosinophils % 1.3 %; Hematocrit 25.3 % (37.0-47.0); Hemoglobin 7.2 g/dL (11.5-15.3); Lymphocytes % 24.3 %; Mean Corpuscular HGB Conc 28.5 g/dL (30.0-36.0); Mean Corpuscular Hemoglobin 26.2 pg (28.0-34.0); Mean Platelet Volume 10.2 fL (7.4-10.4); Monocytes # 0.6 10^3/uL (0.2-0.9); Monocytes % 7.2 %; Neutrophils # 5.39 10^3/uL (1.8-7.7); Neutrophils % 66.2 %; Nucleated Red Blood Cells % 0 %; Platelet Count 228 10^3/cmm (130-400); Red Blood Count 2.75 10^6/uL (4.1-5.3); Red Cell Distribution Width 16.4 % (12.1-15.1); White Blood Count 8.2 10^3/uL (4.0-10.0)
[2022-05-27 05:45] LABS: Alanine Aminotransferase 47 U/L (0-33); Albumin Level 1.9 g/dL (3.5-5.2); Alkaline Phosphatase 185 U/L (35-105); Anion Gap 12.9 (5-19); Aspartate Amino Transferase 28 U/L (0-32); Blood Urea Nitrogen 25 mg/dL (8-23); Calcium 8.9 mg/dL (8.5-10.5); Carbon Dioxide 23 mmol/L (22-29); Chloride 119 mmol/L (98-107); Creatinine Clr Calc Pharmacy 48.1942; Globulin 4.9 g/dL (1.3-4.6); Glomerular Filtration Rate 55.1 mL/min (90-130); Glucose 196 mg/dL (65-115); Osmolality Calculated 322 mOsm/kg (285-295); Potassium 3.9 mmol/L (3.5-5.1); Sodium 151 mmol/L (136-145); Total Bilirubin 0.2 mg/dL (0.15-1.2); Total Protein 6.8 g/dL (6.6-8.7)
[2022-05-27] MEDS: metoprolol tartrate 25 mg Tablet PO ×2 (08:57→17:11)
[2022-05-27] MEDS: sennosides-docusate Tablet 1 TAB PO (08:58)
[2022-05-27] MEDS: pantoprazole DR 40 mg Tablet PO ×2 (08:58→17:11)
[2022-05-27] MEDS: ferrous gluconate 324 mg Tablet PO ×2 (08:59→17:11)
--- NOTE | 2022-05-27 10:46 | PC.SOCIAL ---
IMM Updated Updated pt's on IMM. No questions voiced. Provided pt's a copy. Initialed, dated, & timed copy in chart.
--- NOTE | 2022-05-27 14:38 | P.PN_ITS ---
Subjective Subjective: She is awake, alert, when asked if she is doing well, nods yes. Otherwise nonverbal. is at bedside. Medications: Reviewed: Yes Vitals/I&O/Wt Last Vital Signs Temp 99.9 F H 05/27/22 12:00 Pulse 89 05/27/22 12:00 Resp 18 05/27/22 12:00 BP 134/77 05/27/22 12:00 Pulse Ox 96 05/27/22 12:00 O2 Del Method 05/27/22 12:00 05/26/22 05/27/22 05/27/22 22:59 06:59 14:59 Intake Total 400 / 690 50 / 740 290 / 290 Output Total 900 / 900 200 / 1100 Balance -500 / -210 -150 / -360 290 / 290 Weight last 48 hrs Weight 56.744 kg Weight 56.699 kg Physical Exam Narrative: at bedside feeding her. Const: COMMON NORMALS: alert; negative for patient oriented x3 GENERAL APPEARANCE: not cooperative ORIENTATION/CONSCIOUSNESS: Yes awake OTHER: Nonverbal. HENMT: COMMON NORMALS: oropharynx normal Neck/C-Spine: COMMON NORMALS: no JVD Resp: COMMON NORMALS: normal respiratory effort and clear to auscultation bilaterally AUSCULTATION: clear to auscultation bilaterally Cardio: COMMON NORMALS: no JVD, regular rhythm, S1 normal heart sound present, S2 normal heart sound present and No murmurs present (Cardio) RHYTHM: regular rhythm HEART SOUNDS: S1 normal heart sound present and S2 normal heart sound present GI: COMMON NORMALS: Normal to inspection, nondistended, normoactive bowel sounds present, Soft to palpation and non-tender PALPATION: Yes Soft to palpation Extremity: COMMON NORMALS: no joint enlargement and no pedal edema GENERAL: Yes edema (Trace) Neuro: COMMON NORMALS: moves all extremities; negative for patient oriented x3 SENSORIUM/ORIENTATION: Yes alert Skin: OTHER: Large decubital ulcer, wet-to-dry packing, scattered spots of necrotic tissue on the barber. Urinary Catheter Management: Barraza: Cath Placed During This Visit: yes Reason for Continuing Indwelling Catheter: Assist Healing of Perineal & Sacral Wounds- Incontinent Patients Urinary Catheter Date of Insertion: 05/22/22 Urinary Catheter Time of Insertion: 16:00 Data 05/27/22 04:32 05/27/22 04:32 Micro: Microbiology 05/25/22 20:33 Blood Culture - Preliminary Blood NEGATIVE TO DATE 05/25/22 20:51 Blood Culture - Preliminary Blood NEGATIVE TO DATE 05/22/22 16:15 Blood Culture - Final Blood Strep anginosus group 05/22/22 16:05 Blood Culture - Final Blood Strep anginosus group 05/24/22 08:13 Gram Stain - Final Buttock Wound Culture - Final Escherichia coli Klebsiella pneumoniae 05/22/22 17:38 Urine Culture - Final Urine,Clean Catch Heather albicans A&P Assessment and plan (1) Sepsis: Follow-up repeat blood culture for clearance of bacteremia before placement of PICC line tentatively on Wednesday. Gram-negative rods x2 and wound culture from 05/24. Wound culture 05/22 growing E. coli, Klebsiella, strep pyogenes. Yeast species in urine culture. Continue Zosyn, vancomycin. Status post debridement for source control of decubital wound infection. Additionally suspected complicated UTI with pyelonephritis, nonobstructive, no stone or hydronephrosis noted on imaging. Follow-up cultures. Continue fluconazole for yeast in urine with possible ascending pyelonephritis. With bacteremia with strep anginonosus. Discussed again with . Discussed treatment for infection, source control, consideration of further evaluation with endoscopy to exclude GI malignancy depending on goals of care. Sepsis resolving, but still febrile 111 last night. So far highest 99.9 this afternoon. Present on admission. Ruled in by leukocytosis, endorgan damage with EVA. Source sacral decubitus ulcer Qualifiers: Sepsis type: sepsis due to unspecified organism Sepsis acute organ dysfunction status: with acute organ dysfunction Severe sepsis acute organ dysfunction type: acute renal failure Severe sepsis shock status: without septic shock (2) Sacral decubitus ulcer, stage IV: Continue wet-to-dry for residual necrotic tissue, surgical reassessment and debridement. Status postdebridement of the wound 05/24. Continue broad-spectrum antibiotics with vancomycin and Zosyn. With osteomyelitis, will need a 6 weeks intravenous antibiotics after discharge. states would be able to administer if taught how. Will require catheter, but also with bacteremia currently. Follow-up repeat blood cultures. Deep wound with bone destruction, osteomyelitis, may be responsible for strep anginosus bacteremia as well. Depending on the culture results and possible osteomyelitis will decide about span of treatment. (3) Wound infection: As above. (4) Acute kidney injury: Creatinine improving Baseline creatinine normal. Hold off on lisinopril and metformin. Strict input output charting. (5) Fracture of surgical neck of left humerus: Patient at baseline is wheelchair and bedbound. (6) H/O: stroke with residual effects: (7) Status post laser lithotripsy of ureteral calculus: (8) Bacteremia: Strep anginosus, suspected secondary to infected sacral decub, deep with necrotic tissue, bone destruction with osteomyelitis, although as seen in other cases may be related to occult GI malignancy. Though less likely, may still need investigation to exclude this down the road after acute illness as discussed with . She does have also iron deficiency anemia. (9) Anemia: Received 1 unit RBC . Continue PPI to twice daily. Follow-up Hemoccult. Follow-up blood counts. Could be secondary to chronic losses versus anemia of chronic disease.? Possibly dilutional component with rehydration.? Requested Hemoccult. Monitor hemoglobin daily. Noted iron deficiency anemia. B12, folate normal. TSh normal. As discussed with her , as well as surgery handout, further consideration of endoscopic evaluation on outpatient basis. Plan CODE STATUS: Full code. Cardiac diet. Heparin 5000 every 12 hourly for DVT prophylaxis. Protonix for PUD prophylaxis Attestations Medical Necessity Statement*: Continue admission for assessment and management of improving sepsis with large decubital ulcer with necrosis, osteomyelitis, complicated by bacteremia, and continue post discharge planning and arrangements. Coding Level of Care Code Acute Electrical Continuity Inspector for [facility] Fwd Diagnoses Sepsis A41.9 Sepsis type: sepsis due to unspecified organism Sepsis acute organ dysfunction status: with acute organ dysfunction Severe sepsis acute organ dysfunction type: acute renal failure Severe sepsis shock status: without septic shock Sacral decubitus ulcer, stage IV L89.154 Wound infection T14.8XXA; L08.9 Acute kidney injury N17.9 Fracture of surgical neck of left humerus S42.212A H/O: stroke with residual effects I69.30 Status post laser lithotripsy of ureteral calculus Z98.890 Bacteremia R78.81 Anemia D64.9
[2022-05-27] MEDS: fluconazole premix 200 MG/100 ML PREMIX 100 MG IV (17:11)
[2022-05-27] MEDS: dextrose 5% 1,000 ML 30 ML IV (19:35)
[2022-05-27] MEDS: vancomycin 1,000 MG in sodium chloride 0.9% 250 ML 250 MG IV (19:35)
[2022-05-28] VITALS (9 sets, daily range): BP systolic 128–174; BP diastolic 71–95; PULSE 86–107; RESP 13–17; TEMP 37.4–38.2; O2SAT 95–96
[2022-05-28] MEDS: piperacillin-tazobactam 3.375 GM in sodium chloride 0.9% (plus) 50 ML IV ×3 (00:46→17:57)
[2022-05-28] MEDS: HYDROcodone-acetaminophen 5-325 mg Tablet 1 TAB PO ×2 (04:16→13:09)
[2022-05-28] MEDS: heparin 5,000 unit/mL INJ 1 mL 5000 UNIT SUBCUT ×2 (04:16→17:22)
[2022-05-28 04:34] LABS: Basophils # 0.1 10^3/uL (0.0-0.1); Basophils % 0.7 %; Eosinophils # 0.1 10^3/uL (0.0-0.8); Eosinophils % 1.5 %; Hematocrit 26.1 % (37.0-47.0); Hemoglobin 7.4 g/dL (11.5-15.3); Lymphocytes # 2.2 10^3/uL (0.8-4.8); Lymphocytes % 30.7 %; Mean Corpuscular HGB Conc 28.4 g/dL (30.0-36.0); Mean Corpuscular Hemoglobin 25.9 pg (28.0-34.0); Mean Corpuscular Volume 91.3 fl (81-99); Monocytes # 0.5 10^3/uL (0.2-0.9); Monocytes % 6.8 %; Neutrophils # 4.38 10^3/uL (1.8-7.7); Nucleated Red Blood Cells % 0 %; Platelet Count 221 10^3/cmm (130-400); Red Blood Count 2.86 10^6/uL (4.1-5.3); Red Cell Distribution Width 15.9 % (12.1-15.1); White Blood Count 7.3 10^3/uL (4.0-10.0)
[2022-05-28 04:55] LABS: Alanine Aminotransferase 31 U/L (0-33); Albumin Level 1.9 g/dL (3.5-5.2); Alkaline Phosphatase 148 U/L (35-105); Anion Gap 11.2 (5-19); Aspartate Amino Transferase 14 U/L (0-32); Blood Urea Nitrogen 23 mg/dL (8-23); Calcium 8.8 mg/dL (8.5-10.5); Carbon Dioxide 24 mmol/L (22-29); Chloride 119 mmol/L (98-107); Globulin 4.8 g/dL (1.3-4.6); Glomerular Filtration Rate 49.4 mL/min (90-130); Glucose 179 mg/dL (65-115); Osmolality Calculated 318 mOsm/kg (285-295); Potassium 4.2 mmol/L (3.5-5.1); Sodium 150 mmol/L (136-145); Total Bilirubin 0.2 mg/dL (0.15-1.2); Total Protein 6.7 g/dL (6.6-8.7)
[2022-05-28] MEDS: ferrous gluconate 324 mg Tablet PO ×2 (08:10→17:22)
[2022-05-28] MEDS: sennosides-docusate Tablet 1 TAB PO (08:10)
[2022-05-28] MEDS: pantoprazole DR 40 mg Tablet PO ×2 (08:10→17:22)
[2022-05-28] MEDS: metoprolol tartrate 25 mg Tablet PO ×2 (08:10→17:22)
--- NOTE | 2022-05-28 13:13 | PM.PN ---
Subjective Subjective: She actually responds today verbally. When asked states she is doing not too badly. Denies pain or discomfort currently. Denies abdominal pain. Medications: Reviewed: Yes Vitals/I&O/Wt Last Vital Signs Temp 99.4 F 05/28/22 11:47 Pulse 102 H 05/28/22 11:47 Resp 15 05/28/22 11:47 BP 132/78 05/28/22 11:47 Pulse Ox 95 05/28/22 11:47 O2 Del Method 05/28/22 11:47 05/27/22 05/28/22 05/28/22 22:59 06:59 14:59 Intake Total 1338 / 1628 350 / 1978 290 / 290 Output Total 650 / 650 400 / 1050 Balance 688 / 978 -50 / 928 290 / 290 Weight last 48 hrs Weight 59.477 kg Weight 56.744 kg Physical Exam Narrative: at bedside feeding her. Const: COMMON NORMALS: alert; negative for patient oriented x3 GENERAL APPEARANCE: not cooperative ORIENTATION/CONSCIOUSNESS: Yes awake OTHER: Nonverbal. HENMT: COMMON NORMALS: oropharynx normal Neck/C-Spine: COMMON NORMALS: no JVD Resp: COMMON NORMALS: normal respiratory effort and clear to auscultation bilaterally AUSCULTATION: clear to auscultation bilaterally Cardio: COMMON NORMALS: no JVD, regular rhythm, S1 normal heart sound present, S2 normal heart sound present and No murmurs present (Cardio) RHYTHM: regular rhythm HEART SOUNDS: S1 normal heart sound present and S2 normal heart sound present GI: COMMON NORMALS: Normal to inspection, nondistended, normoactive bowel sounds present, Soft to palpation and non-tender PALPATION: Yes Soft to palpation Extremity: COMMON NORMALS: no joint enlargement and no pedal edema GENERAL: Yes edema (Trace) Neuro: COMMON NORMALS: moves all extremities; negative for patient oriented x3 SENSORIUM/ORIENTATION: Yes alert Skin: OTHER: Large decubital ulcer, wet-to-dry packing, scattered spots of necrotic tissue on the barber. Urinary Catheter Management: Barraza: Cath Placed During This Visit: yes Reason for Continuing Indwelling Catheter: Assist Healing of Perineal & Sacral Wounds- Incontinent Patients Urinary Catheter Date of Insertion: 05/22/22 Urinary Catheter Time of Insertion: 16:00 Data 05/28/22 04:27 05/28/22 04:27 A&P Assessment and plan (1) Sepsis: Persistent/recurrent fevers, including last night 101 and this morning 100.4. Discussed with her and her as well as with surgery. We will additionally assess chest x-ray, reassess again, if continues to have fevers, consideration of additional repeat abdomen pelvis to look for any other fluid collection, perinephric abscess, etc. She is clearing there is no evidence of bacteremia on cultures so far, plan was ablation of the colon Wednesday, however, she is continuing to spike fevers. Additional work-up as above. Would like to see fever subsiding before placement of PICC line. E. coli and Klebsiella pneumonia from wound culture from 05/24. Wound culture 05/22 growing E. coli, Klebsiella, strep pyogenes. Yeast species in urine culture. Continue Zosyn, vancomycin. Status post debridement for source control of decubital wound infection. Additionally suspected complicated UTI with pyelonephritis, nonobstructive, no stone or hydronephrosis noted on imaging. Follow-up cultures. Continue fluconazole for yeast in urine with possible ascending pyelonephritis. With bacteremia with strep anginonosus. Discussed treatment for infection, source control, consideration of further evaluation with endoscopy to exclude GI malignancy depending on goals of care. Qualifiers: Sepsis type: sepsis due to unspecified organism Sepsis acute organ dysfunction status: with acute organ dysfunction Severe sepsis acute organ dysfunction type: acute renal failure Severe sepsis shock status: without septic shock (2) Sacral decubitus ulcer, stage IV: Continue wet-to-dry for residual necrotic tissue, surgical reassessment and debridement. Status postdebridement of the wound 05/24. Continue broad-spectrum antibiotics with vancomycin and Zosyn. With osteomyelitis, will need a 6 weeks intravenous antibiotics after discharge. states would be able to administer if taught how. Will require catheter, but also with bacteremia currently. Follow-up repeat blood cultures. Deep wound with bone destruction, osteomyelitis, may be responsible for strep anginosus bacteremia as well. Depending on the culture results and possible osteomyelitis will decide about span of treatment. (3) Wound infection: As above. (4) Acute kidney injury: Creatinine improving, is down to 1.1 Baseline creatinine normal. Hold off on lisinopril and metformin. Strict input output charting. (5) Fracture of surgical neck of left humerus: Patient at baseline is wheelchair and bedbound. (6) H/O: stroke with residual effects: (7) Status post laser lithotripsy of ureteral calculus: (8) Bacteremia: Strep anginosus, suspected secondary to infected sacral decub, deep with necrotic tissue, bone destruction with osteomyelitis, although as seen in other cases may be related to occult GI malignancy. Though less likely, may still need investigation to exclude this down the road after acute illness as discussed with . She does have also iron deficiency anemia. (9) Anemia: Received 1 unit RBC . Continue PPI to twice daily. Follow-up Hemoccult. Follow-up blood counts. Could be secondary to chronic losses versus anemia of chronic disease.? Possibly dilutional component with rehydration.? Requested Hemoccult. Monitor hemoglobin daily. Noted iron deficiency anemia. B12, folate normal. TSh normal. As discussed with her , as well as surgery handout, further consideration of endoscopic evaluation on outpatient basis. Plan CODE STATUS: Full code. Cardiac diet. Heparin 5000 every 12 hourly for DVT prophylaxis. Protonix for PUD prophylaxis Attestations Medical Necessity Statement*: Continue admission for additional assessment of sepsis with recurrent fevers, assessment for any additional sources, continued IV antibiotics, continued wound care for large, deep decubital ulcer with bone destruction, osteomyelitis. Coding Level of Care Code Acute Manager Delivery for [facility] Fw Diagnoses Sepsis A41.9 Sepsis type: sepsis due to unspecified organism Sepsis acute organ dysfunction status: with acute organ dysfunction Severe sepsis acute organ dysfunction type: acute renal failure Severe sepsis shock status: without septic shock Sacral decubitus ulcer, stage IV L89.154 Wound infection T14.8XXA; L08.9 Acute kidney injury N17.9 Fracture of surgical neck of left humerus S42.212A H/O: stroke with residual effects I69.30 Status post laser lithotripsy of ureteral calculus Z98.890 Bacteremia R78.81 Anemia D64.9
--- NOTE | 2022-05-28 13:20 | XR_ITS ---
WS: [id number] EXAMINATION: XR chest 1V portable [id number] REASON FOR EXAM: persistent fevers COMPARISON: 02/03/2022 ORDER DATE: 05/28/2022 1:23 PM TECHNIQUE: A single, portable frontal chest x-ray was obtained. X-RAY FINDINGS: There is a small area of interstitial thickening located in the left suprahilar area which is new com pared with the prior study. Pleural spaces are clear. No pleural effusions or pneumothorax. There is atherosclerotic aortic change.. No evidence for pulmonary edema. Soft tissue and osseous structures are unremarkable. There is an old surgical neck fracture of the left humerus XR/XR chest 1V portable [id number] IMPRESSION: Small left perihilar infiltrate..
--- NOTE | 2022-05-28 15:56 | PM.PN ---
Subjective Subjective: Patient seems to be more verbal today. Concerns about running fevers per hospitalist service Medications: Reviewed: Yes Vitals/I&O/Wt Last Vital Signs Temp 99.5 F 05/28/22 15:46 Pulse 102 H 05/28/22 15:46 Resp 17 05/28/22 15:46 BP 131/74 05/28/22 15:46 Pulse Ox 96 05/28/22 15:46 O2 Del Method 05/28/22 15:46 05/28/22 05/28/22 05/28/22 06:59 14:59 22:59 Intake Total / 1977 530 / 530 Output Total 400 / 1050 Balance -50 / 928 530 / 530 Weight last 48 hrs Weight 131 lb 2 oz Weight 125 lb 1.6 oz Physical Exam Narrative: Patient is more alert Mild to moderate distress BMI 26.5 Head and neck examination PERRLA no masses no cervical lymphadenopathy no jaundice Lower back wound packing was removed in the presence of nursing staff Flor and residual necrotic was sharply debrided but overall the wound bed looks catch basin cleaner and no surrounding cellulitis and no evidence of pockets of pus in the wound. Patient spouse present bedside Urinary Catheter Management: Barraza: Cath Placed During This Visit: yes Reason for Continuing Indwelling Catheter: Assist Healing of Perineal & Sacral Wounds- Incontinent Patients Urinary Catheter Date of Insertion: 05/22/22 Urinary Catheter Time of Insertion: 16:00 Data 05/28/22 04:27 05/28/22 04:27 A&P Assessment and plan (1) Sacral decubitus ulcer, stage IV: Assessment 66 years old female patient with pressure injury stage IV sacral ulcer Plan 1-continue nutrition optimization 2-wound care in the form of daily packing using wet-to-dry Kerlix followed by ABD 3-management of medical comorbidities per hospitalist service 4-physical therapy consultation when needed 5-assurance and education Upon discharge follow-up with wound care center as scheduled All questions have been answered and all concerns have been addressed to patient's satisfaction. Attestations Medical Necessity Statement*: Per admitting service Coding Level of Care Code Acute Machine Packaging Technician for [facility] Fwd Diagnoses Sacral decubitus ulcer, stage IV L89.154
[2022-05-28] MEDS: fluconazole premix 200 MG/100 ML PREMIX 100 MG IV (16:16)
[2022-05-28 18:59] LABS: Vancomycin Trough 10.6 ug/mL (10-15)
[2022-05-28] MEDS: vancomycin 1,000 MG in sodium chloride 0.9% 250 ML 250 MG IV (21:47)
[2022-05-29] VITALS (7 sets, daily range): BP systolic 120–187; BP diastolic 69–96; PULSE 77–108; RESP 14–19; TEMP 36.9–38.2; O2SAT 95–98
[2022-05-29] MEDS: piperacillin-tazobactam 3.375 GM in sodium chloride 0.9% (plus) 50 ML IV ×3 (01:00→19:30)
[2022-05-29 04:40] LABS: Basophils % 0.5 %; Eosinophils # 0.1 10^3/uL (0.0-0.8); Eosinophils % 1.7 %; Hematocrit 24.5 % (37.0-47.0); Hemoglobin 7.3 g/dL (11.5-15.3); Lymphocytes # 2.3 10^3/uL (0.8-4.8); Lymphocytes % 28.9 %; Mean Corpuscular HGB Conc 29.8 g/dL (30.0-36.0); Mean Corpuscular Hemoglobin 26.6 pg (28.0-34.0); Mean Corpuscular Volume 89.4 fl (81-99); Mean Platelet Volume 10.2 fL (7.4-10.4); Monocytes # 0.5 10^3/uL (0.2-0.9); Monocytes % 6.1 %; Neutrophils # 4.88 10^3/uL (1.8-7.7); Neutrophils % 62.4 %; Nucleated Red Blood Cells % 0 %; Platelet Count 212 10^3/cmm (130-400); Red Blood Count 2.74 10^6/uL (4.1-5.3); Red Cell Distribution Width 15.4 % (12.1-15.1); White Blood Count 7.8 10^3/uL (4.0-10.0)
[2022-05-29 05:02] LABS: Alanine Aminotransferase 24 U/L (0-33); Albumin Level 1.9 g/dL (3.5-5.2); Alkaline Phosphatase 136 U/L (35-105); Anion Gap 11.7 (5-19); Aspartate Amino Transferase 14 U/L (0-32); Blood Urea Nitrogen 19 mg/dL (8-23); Calcium 9.1 mg/dL (8.5-10.5); Carbon Dioxide 25 mmol/L (22-29); Chloride 114 mmol/L (98-107); Globulin 4.8 g/dL (1.3-4.6); Glomerular Filtration Rate 55.1 mL/min (90-130); Glucose 174 mg/dL (65-115); Osmolality Calculated 310 mOsm/kg (285-295); Potassium 3.7 mmol/L (3.5-5.1); Sodium 147 mmol/L (136-145); Total Bilirubin 0.2 mg/dL (0.15-1.2); Total Protein 6.7 g/dL (6.6-8.7)
[2022-05-29] MEDS: dextrose 5% 1,000 ML 30 ML IV (05:49)
[2022-05-29] MEDS: heparin 5,000 unit/mL INJ 1 mL 5000 UNIT SUBCUT ×2 (05:49→17:53)
[2022-05-29] MEDS: sennosides-docusate Tablet 1 TAB PO (07:56)
[2022-05-29] MEDS: ferrous gluconate 324 mg Tablet PO ×2 (07:56→17:53)
[2022-05-29] MEDS: HYDROcodone-acetaminophen 5-325 mg Tablet 1 TAB PO (07:56)
[2022-05-29] MEDS: pantoprazole DR 40 mg Tablet PO ×2 (07:56→17:53)
[2022-05-29] MEDS: metoprolol tartrate 25 mg Tablet PO ×2 (07:56→17:53)
--- NOTE | 2022-05-29 15:08 | PC.SOCIAL ---
IMM Updated Updated pt's spouse on IMM. No questions voiced. Provided pt a copy. Initialed, dated, & timed copy in chart.
[2022-05-29] MEDS: fluconazole premix 200 MG/100 ML PREMIX 100 MG IV (17:53)
--- NOTE | 2022-05-29 18:14 | PM.PN ---
Subjective Subjective: He states he is doing okay. She is not in pain or discomfort. No shortness of breath. No abdominal pain. Medications: Reviewed: Yes Vitals/I&O/Wt Last Vital Signs Temp 98.5 F 05/29/22 11:16 Pulse 81 05/29/22 11:16 Resp 19 H 05/29/22 11:16 BP 120/69 05/29/22 11:16 Pulse Ox 95 05/29/22 11:16 O2 Del Method 05/29/22 04:00 05/29/22 05/29/22 05/29/22 06:59 14:59 22:59 Intake Total 1050 / 2460 350 / 350 Output Total 500 / 1600 620 / 620 Balance 550 / 860 350 / 350 -620 / -270 Weight last 48 hrs Weight 59.506 kg Weight 59.477 kg Physical Exam Narrative: at bedside Const: COMMON NORMALS: alert; negative for patient oriented x3 GENERAL APPEARANCE: not cooperative ORIENTATION/CONSCIOUSNESS: Yes awake OTHER: Nonverbal. HENMT: COMMON NORMALS: oropharynx normal Neck/C-Spine: COMMON NORMALS: no JVD Resp: COMMON NORMALS: normal respiratory effort and clear to auscultation bilaterally AUSCULTATION: clear to auscultation bilaterally Cardio: COMMON NORMALS: no JVD, regular rhythm, S1 normal heart sound present, S2 normal heart sound present and No murmurs present (Cardio) RHYTHM: regular rhythm HEART SOUNDS: S1 normal heart sound present and S2 normal heart sound present GI: COMMON NORMALS: Normal to inspection, nondistended, normoactive bowel sounds present, Soft to palpation and non-tender PALPATION: Yes Soft to palpation Extremity: COMMON NORMALS: no joint enlargement and no pedal edema GENERAL: Yes edema (Trace) Neuro: COMMON NORMALS: moves all extremities; negative for patient oriented x3 SENSORIUM/ORIENTATION: Yes alert Urinary Catheter Management: Barraza: Cath Placed During This Visit: yes Reason for Continuing Indwelling Catheter: Assist Healing of Perineal & Sacral Wounds- Incontinent Patients Urinary Catheter Date of Insertion: 05/22/22 Urinary Catheter Time of Insertion: 16:00 Data 05/29/22 04:26 05/29/22 04:26 A&P Assessment and plan (1) Sepsis: Recurrent fevers, including low-grade fever this morning. Discussed with her obtaining CT abdomen pelvis with contrast. However, this evening appears has not had recurrence of fever so far. We will reassess again tonight, if having further fevers will additionally image. No vegetation on ROHITH. Clearing bacteremia, so far there is no evidence of bacteremia on cultures so far, plan was ablation of the colon Wednesday, however, she is continuing to spike fevers. Additional work-up as above. Would like to see fever subsiding before placement of PICC line. E. coli and Klebsiella pneumonia from wound culture from 05/24. Wound culture 05/22 growing E. coli, Klebsiella, strep pyogenes. Yeast species in urine culture. Continue Zosyn, vancomycin. Status post debridement for source control of decubital wound infection. Additionally suspected complicated UTI with pyelonephritis, nonobstructive, no stone or hydronephrosis noted on imaging. Follow-up cultures. Continue fluconazole for yeast in urine with possible ascending pyelonephritis. With bacteremia with strep anginonosus. Discussed treatment for infection, source control, consideration of further evaluation with endoscopy to exclude GI malignancy depending on goals of care. Qualifiers: Sepsis type: sepsis due to unspecified organism Sepsis acute organ dysfunction status: with acute organ dysfunction Severe sepsis acute organ dysfunction type: acute renal failure Severe sepsis shock status: without septic shock (2) Sacral decubitus ulcer, stage IV: Continue wet-to-dry for residual necrotic tissue, surgical reassessment and debridement. Status postdebridement of the wound 05/24. Additional bedside debridement 05/28. Continue broad-spectrum antibiotics with vancomycin and Zosyn. With osteomyelitis, will need a 6 weeks intravenous antibiotics after discharge. [facility] states would be able to administer if taught how. Will require catheter, but also with bacteremia currently. Follow-up repeat blood cultures. Deep wound with bone destruction, osteomyelitis, may be responsible for strep anginosus bacteremia as well. Depending on the culture results and possible osteomyelitis will decide about span of treatment. (3) Wound infection: As above. (4) Acute kidney injury: Creatinine improving, is down to 1.1 Baseline creatinine normal. Hold off on lisinopril and metformin. Strict input output charting. (5) Fracture of surgical neck of left humerus: Patient at baseline is wheelchair and bedbound. (6) H/O: stroke with residual effects: (7) Status post laser lithotripsy of ureteral calculus: (8) Bacteremia: Strep anginosus, suspected secondary to infected sacral decub, deep with necrotic tissue, bone destruction with osteomyelitis, although as seen in other cases may be related to occult GI malignancy. Though less likely, may still need investigation to exclude this down the road after acute illness as discussed with . She does have also iron deficiency anemia. (9) Anemia: Received 1 unit RBC . Continue PPI to twice daily. Follow-up Hemoccult. Follow-up blood counts. Could be secondary to chronic losses versus anemia of chronic disease.? Possibly dilutional component with rehydration.? Requested Hemoccult. Monitor hemoglobin daily. Noted iron deficiency anemia. B12, folate normal. TSh normal. As discussed with her , as well as surgery handout, further consideration of endoscopic evaluation on outpatient basis. Plan CODE STATUS: Full code. Cardiac diet. Heparin 5000 every 12 hourly for DVT prophylaxis. Protonix for PUD prophylaxis Attestations Medical Necessity Statement*: Continue admission for additional assessment of complicated wound infection with bacteremia, pyelonephritis, recurrent fevers, continued IV antibiotics, post discharge preparation. Coding Level of Care Code Acute Time Study Technologist for [facility] Fwd Diagnoses Sepsis A41.9 Sepsis type: sepsis due to unspecified organism Sepsis acute organ dysfunction status: with acute organ dysfunction Severe sepsis acute organ dysfunction type: acute renal failure Severe sepsis shock status: without septic shock Sacral decubitus ulcer, stage IV L89.154 Wound infection T14.8XXA; L08.9 Acute kidney injury N17.9 Fracture of surgical neck of left humerus S42.212A H/O: stroke with residual effects I69.30 Status post laser lithotripsy of ureteral calculus Z98.890 Bacteremia R78.81 Anemia D64.9
[2022-05-29] MEDS: vancomycin 1,000 MG in sodium chloride 0.9% 250 ML 250 MG IV (19:30)
[2022-05-30 03:59] LABS: Basophils % 0.4 %; Eosinophils # 0.2 10^3/uL (0.0-0.8); Eosinophils % 2.5 %; Lymphocytes # 2.2 10^3/uL (0.8-4.8); Lymphocytes % 31.7 %; Mean Corpuscular HGB Conc 29.2 g/dL (30.0-36.0); Mean Corpuscular Volume 89.2 fl (81-99); Mean Platelet Volume 11.3 fL (7.4-10.4); Monocytes # 0.4 10^3/uL (0.2-0.9); Monocytes % 5.8 %; Neutrophils # 4.06 10^3/uL (1.8-7.7); Neutrophils % 59.2 %; Nucleated Red Blood Cells % 0 %; Platelet Count 210 10^3/cmm (130-400); Red Blood Count 2.69 10^6/uL (4.1-5.3); Red Cell Distribution Width 15.2 % (12.1-15.1); White Blood Count 6.9 10^3/uL (4.0-10.0)
[2022-05-30 04:00] VITALS: BP 166/59; PULSE 78; RESP 16; TEMP 37.2; O2SAT 95
[2022-05-30] MEDS: heparin 5,000 unit/mL INJ 1 mL 5000 UNIT SUBCUT ×2 (04:09→16:33)
[2022-05-30] MEDS: piperacillin-tazobactam 3.375 GM in sodium chloride 0.9% (plus) 50 ML IV ×3 (04:12→21:26)
[2022-05-30 04:21] LABS: Alanine Aminotransferase 20 U/L (0-33); Alkaline Phosphatase 124 U/L (35-105); Anion Gap 12.6 (5-19); Aspartate Amino Transferase 13 U/L (0-32); Blood Urea Nitrogen 18 mg/dL (8-23); Calcium 9.1 mg/dL (8.5-10.5); Carbon Dioxide 24 mmol/L (22-29); Chloride 113 mmol/L (98-107); Globulin 4.6 g/dL (1.3-4.6); Glomerular Filtration Rate 62.3 mL/min (90-130); Glucose 176 mg/dL (65-115); Osmolality Calculated 308 mOsm/kg (285-295); Potassium 3.6 mmol/L (3.5-5.1); Sodium 146 mmol/L (136-145); Total Bilirubin 0.2 mg/dL (0.15-1.2); Total Protein 6.6 g/dL (6.6-8.7)
[2022-05-30 07:55] VITALS: BP 143/74; PULSE 87; RESP 16; TEMP 37; O2SAT 93
[2022-05-30] MEDS: metoprolol tartrate 25 mg Tablet PO ×2 (09:27→18:00)
[2022-05-30] MEDS: ferrous gluconate 324 mg Tablet PO ×2 (09:27→18:00)
[2022-05-30] MEDS: sennosides-docusate Tablet 1 TAB PO (09:27)
[2022-05-30] MEDS: pantoprazole DR 40 mg Tablet PO ×2 (09:27→18:00)
[2022-05-30] MEDS: dextrose 5% 1,000 ML 30 ML IV (09:35)
[2022-05-30 12:00] VITALS: BP 120/78; PULSE 93; RESP 16; TEMP 37.2; O2SAT 99
[2022-05-30 15:43] VITALS: BP 158/96; PULSE 84; RESP 16; TEMP 36.8; O2SAT 98
[2022-05-30] MEDS: fluconazole premix 200 MG/100 ML PREMIX 100 MG IV (16:33)
[2022-05-30 20:00] VITALS: BP 170/96; PULSE 101; RESP 16; TEMP 37.3; O2SAT 95
--- NOTE | 2022-05-30 20:02 | P.PN_ITS ---
Subjective Subjective: She reports she is doing okay. Denies any complaints. Is not in pain. Vitals/I&O/Wt Last Vital Signs Temp 98.2 F 05/30/22 15:43 Pulse 84 05/30/22 15:43 Resp 16 05/30/22 15:43 BP 158/96 05/30/22 15:43 Pulse Ox 98 05/30/22 15:43 O2 Del Method 05/30/22 15:43 05/30/22 05/30/22 05/30/22 06:59 14:59 22:59 Intake Total 50 / 810 1483 / 1483 270 / 1753 Output Total 300 / 920 Balance -250 / -110 1483 / 1483 270 / 1753 Weight last 48 hrs Weight 59.506 kg Physical Exam Narrative: at bedside Const: COMMON NORMALS: alert; negative for patient oriented x3 GENERAL APPEARANCE: not cooperative ORIENTATION/CONSCIOUSNESS: Yes awake OTHER: Provides minimal ROS. HENMT: COMMON NORMALS: oropharynx normal Neck/C-Spine: COMMON NORMALS: no JVD Resp: COMMON NORMALS: normal respiratory effort and clear to auscultation bilaterally AUSCULTATION: clear to auscultation bilaterally Cardio: COMMON NORMALS: no JVD, regular rhythm, S1 normal heart sound present, S2 normal heart sound present and No murmurs present (Cardio) RHYTHM: regular rhythm HEART SOUNDS: S1 normal heart sound present and S2 normal heart sound present GI: COMMON NORMALS: Normal to inspection, nondistended, normoactive bowel sounds present, Soft to palpation and non-tender PALPATION: Yes Soft to palpation Extremity: COMMON NORMALS: no joint enlargement and no pedal edema GENERAL: Yes edema (Trace) Neuro: COMMON NORMALS: moves all extremities; negative for patient oriented x3 SENSORIUM/ORIENTATION: Yes alert Skin: OTHER: Known decubital ulcer. Urinary Catheter Management: Barraza: Cath Placed During This Visit: yes Reason for Continuing Indwelling Catheter: Other Urinary Catheter Date of Insertion: 05/22/22 Urinary Catheter Time of Insertion: 16:00 Data 05/30/22 03:01 05/30/22 03:01 A&P Assessment and plan (1) Sepsis: Discussed with her and her , low-grade fever last night, but so far otherwise without recurrence. Discussed for now holding off on CT scan sparing her additional contrast load as she appears to be defervescing. Obtain PICC line when available. Clearing bacteremia, so far there is no evidence of bacteremia on cultures so far, plan was ablation of the colon Wednesday, however, she is continuing to spike fevers. E. coli and Klebsiella pneumonia from wound culture from 05/24. Wound culture 05/22 growing E. coli, Klebsiella, strep pyogenes. Yeast species in urine culture. Continue Zosyn, vancomycin. Status post debridement for source control of decubital wound infection. Additionally suspected complicated UTI with pyelonephritis, nonobstructive, no stone or hydronephrosis noted on imaging. Follow-up cultures. Continue fluconazole for yeast in urine with possible ascending pyelonephritis. With bacteremia with strep anginonosus. Discussed treatment for infection, source control, consideration of further evaluation with endoscopy to exclude GI malignancy depending on goals of care. Qualifiers: Sepsis type: sepsis due to unspecified organism Sepsis acute organ dysfunction status: with acute organ dysfunction Severe sepsis acute organ dysfunction type: acute renal failure Severe sepsis shock status: without s eptic shock (2) Sacral decubitus ulcer, stage IV: Continue wet-to-dry for residual necrotic tissue, surgical reassessment and debridement. She is defervescing. Status post debridement of the wound 05/24. Additional bedside debridement 05/28. Continue broad-spectrum antibiotics with vancomycin and Zosyn. With osteomyelitis, will need a 6 weeks intravenous antibiotics after discharge. states would be able to administer if taught how. Needs PICC line when available. Deep wound with bone destruction, osteomyelitis, may be responsible for strep anginosus bacteremia as well. Depending on the culture results and possible osteomyelitis will decide about span of treatment. (3) Wound infection: As above. (4) Acute kidney injury: Resolved. Baseline creatinine normal. Hold off on lisinopril and metformin. Strict input output charting. (5) Fracture of surgical neck of left humerus: Patient at baseline is wheelchair and bedbound. (6) H/O: stroke with residual effects: (7) Status post laser lithotripsy of ureteral calculus: (8) Bacteremia: Strep anginosus, suspected secondary to infected sacral decub, deep with necrotic tissue, bone destruction with osteomyelitis, although as seen in other cases may be related to occult GI malignancy. Though less likely, may still n eed investigation to exclude this down the road after acute illness as discussed with . She does have also iron deficiency anemia. (9) Anemia: Hemoglobin again with downtrending. Reassess, if dropping below 7 transfuse again. Hemoccult requested but so far not obtained. Continue PPI to twice daily. Could be secondary to chronic losses versus anemia of chronic disease.? Possibly dilutional component with rehydration.? Hemoccult. Monitor hemoglobin daily. Noted iron deficiency anemia. B12, folate normal. TSh normal. As discussed with her , as well as surgery handout, further consideration of endoscopic evaluation on outpatient basis. Plan CODE STATUS: Full code. Cardiac diet. Heparin 5000 every 12 hourly for DVT prophylaxis. Protonix for PUD prophylaxis Attestations Medical Necessity Statement*: Continue admission for assessment of management of complicated sacral large decubital ulcer with bone destruction and osteomyelitis, complicated UTI with pyelonephritis, improving sepsis, pending arrangements for continued IV antibiotic therapy after discharge. Coding Level of Care Code Acute Professional Development Manager for [facility] Fwd Diagnoses Sepsis A41.9 Sepsis type: sepsis due to unspecified organism Sepsis acute organ dysfunction status: with acute organ dysfunction Severe sepsis acute organ dysfunction type: acute renal failure Severe sepsis shock status: without septic shock Sacral decubitus ulcer, stage IV L89.154 Wound infection T14.8XXA; L08.9 Acute kidney injury N17.9 Fracture of surgical neck of left humerus S42.212A H/O: stroke with residual effects I69.30 Status post laser lithotripsy of ureteral calculus Z98.890 Bacteremia R78.81 Anemia D64.9
[2022-05-30] MEDS: vancomycin 1,000 MG in sodium chloride 0.9% 250 ML 250 MG IV (20:04)
[2022-05-31] VITALS: BP 149/83; PULSE 79; RESP 15; TEMP 36.9
[2022-05-31 04:00] VITALS: BP 160/94; PULSE 90; RESP 17; TEMP 37; O2SAT 96
[2022-05-31 04:42] LABS: Basophils % 0.6 %; Eosinophils # 0.2 10^3/uL (0.0-0.8); Eosinophils % 2.5 %; Hematocrit 27.3 % (37.0-47.0); Lymphocytes # 2.1 10^3/uL (0.8-4.8); Lymphocytes % 29.4 %; Mean Corpuscular HGB Conc 29.3 g/dL (30.0-36.0); Mean Corpuscular Hemoglobin 26.4 pg (28.0-34.0); Mean Corpuscular Volume 90.1 fl (81-99); Monocytes # 0.4 10^3/uL (0.2-0.9); Monocytes % 6.2 %; Neutrophils # 4.35 10^3/uL (1.8-7.7); Neutrophils % 60.9 %; Nucleated Red Blood Cells % 0 %; Platelet Count 217 10^3/cmm (130-400); Red Blood Count 3.03 10^6/uL (4.1-5.3); Red Cell Distribution Width 15.1 % (12.1-15.1); White Blood Count 7.1 10^3/uL (4.0-10.0)
[2022-05-31 04:59] LABS: Alanine Aminotransferase 22 U/L (0-33); Alkaline Phosphatase 143 U/L (35-105); Anion Gap 11.5 (5-19); Aspartate Amino Transferase 15 U/L (0-32); Blood Urea Nitrogen 16 mg/dL (8-23); Calcium 9.2 mg/dL (8.5-10.5); Carbon Dioxide 24 mmol/L (22-29); Chloride 100 mmol/L (98-107); Globulin 4.9 g/dL (1.3-4.6); Glomerular Filtration Rate 71.3 mL/min (90-130); Glucose 170 mg/dL (65-115); Osmolality Calculated 279 mOsm/kg (285-295); Potassium 3.5 mmol/L (3.5-5.1); Sodium 132 mmol/L (136-145); Total Bilirubin 0.2 mg/dL (0.15-1.2); Total Protein 6.9 g/dL (6.6-8.7)
[2022-05-31] MEDS: heparin 5,000 unit/mL INJ 1 mL 5000 UNIT SUBCUT ×2 (05:25→17:43)
[2022-05-31] MEDS: piperacillin-tazobactam 3.375 GM in sodium chloride 0.9% (plus) 50 ML IV ×3 (05:25→23:45)
[2022-05-31 08:00] VITALS: BP 151/89; PULSE 104; RESP 18; TEMP 36.5; O2SAT 96
[2022-05-31] MEDS: metoprolol tartrate 25 mg Tablet PO ×2 (09:17→17:43)
[2022-05-31] MEDS: pantoprazole DR 40 mg Tablet PO ×2 (09:17→17:43)
[2022-05-31] MEDS: sennosides-docusate Tablet 1 TAB PO (09:18)
[2022-05-31] MEDS: ferrous gluconate 324 mg Tablet PO ×2 (09:18→17:43)
[2022-05-31 11:58] VITALS: BP 145/85; PULSE 86; RESP 18; TEMP 36.9; O2SAT 97
[2022-05-31 16:00] VITALS: BP 148/83
[2022-05-31] MEDS: fluconazole premix 200 MG/100 ML PREMIX 100 MG IV (17:43)
[2022-05-31 20:00] VITALS: BP 150/78; PULSE 85; RESP 17; TEMP 38.1; O2SAT 98
--- NOTE | 2022-05-31 20:03 | P.PN_ITS ---
Subjective Subjective: She states she is doing okay. Not in pain or discomfort. Medications: Reviewed: Yes Vitals/I&O/Wt Last Vital Signs Temp 98.5 F 05/31/22 11:58 Pulse 86 05/31/22 11:58 Resp 18 05/31/22 11:58 BP 148/83 05/31/22 16:00 Pulse Ox 97 05/31/22 11:58 O2 Del Method 05/31/22 11:58 05/31/22 05/31/22 05/31/22 06:59 14:59 22:59 Intake Total 2052 770 / 770 Output Total 650 / 1850 Balance -600 / 203 770 / 770 Physical Exam Narrative: at bedside Const: COMMON NORMALS: alert; negative for patient oriented x3 GENERAL APPEARANCE: not cooperative ORIENTATION/CONSCIOUSNESS: Yes awake OTHER: Provides minimal ROS. HENMT: COMMON NORMALS: oropharynx normal Neck/C-Spine: COMMON NORMALS: no JVD Resp: COMMON NORMALS: normal respiratory effort and clear to auscultation bilaterally AUSCULTATION: clear to auscultation bilaterally Cardio: COMMON NORMALS: no JVD, regular rhythm, S1 normal heart sound present, S2 normal heart sound present and No murmurs present (Cardio) RHYTHM: regular rhythm HEART SOUNDS: S1 normal heart sound present and S2 normal heart sound present GI: COMMON NORMALS: Normal to inspection, nondistended, normoactive bowel sounds present, Soft to palpation and non-tender PALPATION: Yes Soft to palpation Extremity: COMMON NORMALS: no joint enlargement and no pedal edema GENERAL: Yes edema (Trace) Neuro: COMMON NORMALS: moves all extremities; negative for patient oriented x3 SENSORIUM/ORIENTATION: Yes alert Skin: OTHER: Known decubital ulcer. Urinary Catheter Management: Barraza: Cath Placed During This Visit: yes Reason for Continuing Indwelling Catheter: Other Urinary Catheter Date of Insertion: 05/22/22 Urinary Catheter Time of Insertion: 16:00 Data 05/31/22 04:05 05/31/22 04:05 Micro: Microbiology 05/31/22 17:20 Occult Blood (FIT) - Final Stool Routine Collection 05/25/22 20:33 Blood Culture - Final Blood NO GROWTH AFTER 5 DAYS 05/25/22 20:51 Blood Culture - Final Blood NO GROWTH AFTER 5 DAYS A&P Assessment and plan (1) Sepsis: PICC line requested. Continue IV antibiotic infusions with ceftriaxone after discharge. Follow-up with Wound care and infectious disease. So far fevers resolved. No growth on repeat culture. Deferred repeat CT scan sparing her additional contrast load. Clearing bacteremia, so far there is no evidence of bacteremia on cultures so far, plan was ablation of the colon Wednesday, however, she is continuing to spike fevers. E. coli and Klebsiella pneumonia from wound culture from 05/24. Wound culture 05/22 growing E. coli, Klebsiella, strep pyogenes. Yeast species in urine culture. Continue Zosyn, vancomycin. Status post debridement for source control of decubital wound infection. Additionally suspected complicated UTI with pyelonephritis, nonobstructive, no stone or hydronephrosis noted on imaging. Follow-up cultures. Continue fluconazole for yeast in urine with possible ascending pyelonephritis. With bacteremia with strep anginonosus. Discussed treatment for infection, source control, consideration of further evaluation with endoscopy to exclude GI malignancy depending on goals of care. Qualifiers: Sepsis type: sepsis due to unspecified organism Sepsis acute organ dysfunction status: with acute organ dysfunction Severe sepsis acute organ dysfunction type: acute renal failure Severe sepsis shock status: without septic shock (2) Sacral decubitus ulcer, stage IV: Continue wet-to-dry for residual necrotic tissue, surgical reassessment and debridement. She is defervescing. Status post debridement of the wound 05/24. Additional bedside debridement 05/28. Continue broad-spectrum antibiotics with vancomycin and Zosyn. With osteomyelitis, will need a 6 weeks intravenous antibiotics after discharge. [facility] [place] states would be able to administer if taught how. Needs PICC line when available. Deep wound with bone destruction, osteomyelitis, may be responsible for strep anginosus bacteremia as well. Depending on the culture results and possible osteomyelitis will decide about span of treatment. (3) Wound infection: As above. (4) Acute kidney injury: Resolved. Baseline creatinine normal. Hold off on lisinopril and metformin. Strict input output charting. (5) Fracture of surgical neck of left humerus: Patient at baseline is wheelchair and bedbound. (6) H/O: stroke with residual effects: (7) Status post laser lithotripsy of ureteral calculus: (8) Bacteremia: Strep anginosus, suspected secondary to infected sacral decub, deep with necrotic tissue, bone destruction with osteomyelitis, although as seen in other cases may be related to occult GI malignancy. Though less likely, may still need investigation to exclude this down the road after acute illness as discussed with . She does have also iron deficiency anemia. (9) Anemia: Hemoglobin again with downtrending. Reassess, if dropping below 7 transfuse aga in. Hemoccult requested but so far not obtained. Continue PPI to twice daily. Could be secondary to chronic losses versus anemia of chronic disease.? Possibly dilutional component with rehydration.? Hemoccult. Monitor hemoglobin daily. Noted iron deficiency anemia. B12, folate normal. TSh normal. As discussed with her , as well as surgery handout, further consideration of endoscopic evaluation on outpatient basis. Plan CODE STATUS: Full code. Cardiac diet. Heparin 5000 every 12 hourly for DVT prophylaxis. Protonix for PUD prophylaxis Attestations Medical Necessity Statement*: Continue admission for his management of complicated sacral decubital ulcer, bacteremia, preparation for continued intravenous antibiotic to be after discharge. Coding Level of Care Code Acute Resource Forester for [facility] Fwd Diagnoses Sepsis A41.9 Sepsis type: sepsis due to unspecified organism Sepsis acute organ dysfunction status: with acute organ dysfunction Severe sepsis acute organ dysfunction type: acute renal failure Severe sepsis shock status: without septic shock Sacral decubitus ulcer, stage IV L89.154 Wound infection T14.8XXA; L08.9 Acute kidney injury N17.9 Fracture of surgical neck of left humerus S42.212A H/O: stroke with residual effects I69.30 Status post laser lithotripsy of ureteral calculus Z98.890 Bacteremia R78.81 Anemia D64.9
[2022-05-31] MEDS: acetaminophen 325 mg Tablet 650 MG PO (20:26)
[2022-05-31] MEDS: vancomycin 1,000 MG in sodium chloride 0.9% 250 ML 250 MG IV (23:54)
[2022-06-01] VITALS (7 sets, daily range): BP systolic 113–174; BP diastolic 72–82; PULSE 68–104; RESP 16–22; TEMP 36.7–39.1; O2SAT 91–99
--- NOTE | 2022-06-01 01:10 | PC.NURSE ---
iv abxs given on time, in error forgot to scan, bit of delay in mid infusion of zosyn due to iv leakage, iv restarted, tolerated well.
[2022-06-01] MEDS: dextrose 5% 1,000 ML 30 ML IV (02:48)
[2022-06-01 03:35] LABS: Basophils % 0.4 %; Eosinophils # 0.2 10^3/uL (0.0-0.8); Eosinophils % 2.7 %; Hematocrit 24.1 % (37.0-47.0); Hemoglobin 7.3 g/dL (11.5-15.3); Lymphocytes % 28.2 %; Mean Corpuscular HGB Conc 30.3 g/dL (30.0-36.0); Mean Corpuscular Hemoglobin 26.4 pg (28.0-34.0); Mean Corpuscular Volume 87.3 fl (81-99); Mean Platelet Volume 11.4 fL (7.4-10.4); Monocytes # 0.5 10^3/uL (0.2-0.9); Monocytes % 6.6 %; Neutrophils # 4.32 10^3/uL (1.8-7.7); Neutrophils % 61.8 %; Nucleated Red Blood Cells % 0 %; Platelet Count 206 10^3/cmm (130-400); Red Blood Count 2.76 10^6/uL (4.1-5.3); Red Cell Distribution Width 15.7 % (12.1-15.1)
[2022-06-01 05:07] LABS: Alanine Aminotransferase 21 U/L (0-33); Albumin Level 2.1 g/dL (3.5-5.2); Alkaline Phosphatase 168 U/L (35-105); Anion Gap 12.4 (5-19); Aspartate Amino Transferase 15 U/L (0-32); Blood Urea Nitrogen 17 mg/dL (8-23); Calcium 9.2 mg/dL (8.5-10.5); Carbon Dioxide 24 mmol/L (22-29); Chloride 104 mmol/L (98-107); Globulin 4.7 g/dL (1.3-4.6); Glomerular Filtration Rate 71.3 mL/min (90-130); Glucose 217 mg/dL (65-115); Osmolality Calculated 292 mOsm/kg (285-295); Potassium 3.4 mmol/L (3.5-5.1); Sodium 137 mmol/L (136-145); Total Bilirubin 0.2 mg/dL (0.15-1.2); Total Protein 6.8 g/dL (6.6-8.7)
[2022-06-01] MEDS: piperacillin-tazobactam 3.375 GM in sodium chloride 0.9% (plus) 50 ML IV (05:17)
[2022-06-01] MEDS: heparin 5,000 unit/mL INJ 1 mL 5000 UNIT SUBCUT ×2 (05:18→17:24)
[2022-06-01] MEDS: ferrous gluconate 324 mg Tablet PO ×2 (10:18→17:24)
[2022-06-01] MEDS: metoprolol tartrate 25 mg Tablet PO ×2 (10:18→17:24)
[2022-06-01] MEDS: sennosides-docusate Tablet 1 TAB PO (10:18)
[2022-06-01] MEDS: pantoprazole DR 40 mg Tablet PO ×2 (10:18→17:24)
--- NOTE | 2022-06-01 10:25 | PC.NURSE ---
Orders received to place PICC line for continued antibiotics. This nurse was able to access basilic vein twice. Unable to thread catheter. Veins very collapsible and difficult to access. This nurse called for expert consult, Harshad Lance RN, to help with PICC. Harshad also able to access vein but unable to thread catheter. Harshad's opinion was to stop further attempts at this time and notify provider. This nurse informed the patient's care nurse, Yenny. Yenny to notify Dr. Parikh.
--- NOTE | 2022-06-01 12:18 | US_ITS ---
WS: [id number] RENAL ULTRASOUND HISTORY: possible hydronephrosis COMPARISON: 2021 TECHNIQUE: 2-D and color Doppler imaging of the kidney submitted. Right kidney: 9.5 cm x 4.7 cm x 4.6 cm. Normal echogenicity with no hydronephrosis or mass. Left kidney: 9.1 cm x 5.2 cm x 5.0 cm. Normal echogenicity with no hydronephrosis or mass. Aorta: Not visualized. Obscured by bowel gas. Urinary Bladder: Nondistended. Barraza catheter in place. US/US renal BI* [id number] IMPRESSION: 1. Normal size kidneys. 2. No hydronephrosis or mass.
--- NOTE | 2022-06-01 12:21 | XR_ITS ---
WS: [id number] Portable AP upright chest, 06/01/2022 Clinical Data: PNA Comparison: Portable chest, 05/28/2022. Findings: No nodules, masses or effusions are seen. The heart is normal. The pulmonary vascularity is not increased. No pneumonia or pneumothorax is seen. The left perihilar opacity has cleared. XR/XR chest 1V portable [id number] Impression: Clearing of left perihilar opacity.
[2022-06-01 14:59] LABS: Influenza A by IFA negative (Negative); Influenza B by IFA negative (Negative)
--- NOTE | 2022-06-01 16:10 | PM.PN ---
Subjective Subjective: Hospital course, labs appreciated. Seen with family at bedside. T-max in the last 24 hours 100.1 Fahrenheit. Patient has remained hemodynamically stable. I am told PICC line was tried today morning but could not be placed because of poor access. Patient remains at baseline mentation as per at bedside. Barraza catheter in place. Medications: Reviewed: Yes Vitals/I&O/Wt Last Vital Signs Temp 98.6 F 06/01/22 11:51 Pulse 68 06/01/22 11:51 Resp 22 H 06/01/22 11:51 BP 118/73 06/01/22 11:51 Pulse Ox 94 06/01/22 11:51 O2 Del Method 06/01/22 11:51 06/01/22 06/01/22 06/01/22 06:59 14:59 22:59 Intake Total 170 / 1990 400 / 400 Output Total 450 / 450 Balance -280 / 1540 400 / 400 Weight last 48 hrs Weight 56.336 kg Physical Exam Narrative: EXAM NARRATIVE: General: No acute distress, AO x1-2, not following simple commands, chronically sick appearing HEENT: PERRLA, pupils bilaterally equal and reactive Chest: Bilateral bronchial breath sounds CVS: S1-S2 regular, no murmurs, no tachycardia, no gallops, no rubs Abdomen: Soft, nontender, no organomegaly, bowel sounds present, morbidly obese Neuro: No focal deficits, no facial deformity, AO x3, power 5/5 in all limbs Extremities: Surgically bandaged currently decub ulcers. No foul smell no drainage Urinary Catheter Management: Barraza: Cath Placed During This Visit: yes Reason for Continuing Indwelling Catheter: Assist Healing of Perineal & Sacral Wounds- Incontinent Patients Urinary Catheter Date of Insertion: 05/22/22 Urinary Catheter Time of Insertion: 16:00 Data 06/01/22 03:08 06/01/22 02:55 Micro: Microbiology 06/01/22 14:11 Blood Culture - Preliminary Blood SPECIMEN COLLECTED 06/01/22 14:17 Blood Culture - Preliminary Blood SPECIMEN COLLECTED 05/31/22 17:20 Occult Blood (FIT) - Final Stool Routine Collection A&P Assessment and plan (1) Sepsis: Sacral decubitus ulcer along with osteomyelitis and nonobstructive pyelonephritis. Blood cultures from admission positive for strep angiosis. Wound culture positive for E. coli and Klebsiella. Urine culture positive for Heather albicans. Patient has finished course with Diflucan. Repeat blood cultures from 05/25 so far negative. Patient still having low-grade fever for last 48 hours. Switch antibiotics to IV ceftriaxone as per culture sensitivities. Day 11 of appropriate antibiotics today. Repeat urinalysis, chest x-ray. Check renal ultrasound to rule out hydronephrosis given recent history of obstructive pyelonephritis. Check COVID-19 PCR and flu swab. Fever could be secondary to atelectasis but will rule out infectious source. With bacteremia with strep anginonosus. Discussed treatment for infection, source control, consideration of further evaluation with endoscopy to exclude GI malignancy depending on goals of care. Patient most likely needs IV antibiotics for 6 weeks. Though IV access is not currently placed. Will request a midline if possible. Will request ID recommendations and consult to see if oral antibiotic is a possibility. If both of them are not possible then we will most likely discharge with IM ceftriaxone 2 g daily. Qualifiers: Sepsis type: sepsis due to unspecified organism Sepsis acute organ dysfunction status: with acute organ dysfunction Severe sepsis acute organ dysfunction type: acute renal failure Severe sepsis shock status: without septic shock (2) Sacral decubitus ulcer, stage IV: Continue wet-to-dry for residual necrotic tissue, surgical reassessment and debridement. IV antibiotics as above. Appreciate surgical recommendations. Status post debridement of the wound 05/24. Additional bedside debridement 05/28. (3) Wound infection: As above. (4) Acute kidney injury: Resolved. Baseline creatinine normal. Hold off on lisinopril and metformin. Strict input output charting. (5) Fracture of surgical neck of left humerus: Patient at baseline is wheelchair and bedbound. (6) H/O: stroke with residual effects: (7) Status post laser lithotripsy of ureteral calculus: (8) Bacteremia: Strep anginosus, suspected secondary to infected sacral decub, deep with necrotic tissue, bone destruction with osteomyelitis, although as seen in other cases may be related to occult GI malignancy. Though less likely, may still need investigation to exclude this down the road after acute illness as discussed with . She does have also iron deficiency anemia. (9) Anemia: Hemoglobin again with downtrending. Reassess, if dropping below 7 transfuse again. Hemoccult requested but so far not obtained. Continue PPI to twice daily. Could be secondary to chronic losses versus anemia of chronic disease.? Possibly dilutional component with rehydration.? Hemoccult. Monitor hemoglobin daily. Noted iron deficiency anemia. B12, folate normal. TSh normal. As discussed with her , as well as surgery handout, further consideration of endoscopic evaluation on outpatient basis. Plan CODE STATUS: Full code. Cardiac diet. Heparin 5000 every 12 hourly for DVT prophylaxis. Protonix for PUD prophylaxis Attestations Medical Necessity Statement*: Requires further hospitalization for management of sepsis secondary to decubitus ulcer, nausea to pyelonephritis in setting of osteomyelitis and bacteremia Time Spent in Patient Care: Greater than 35 minutes Coding Level of Care Code Acute Rail Loader for [facility] Fwd Diagnoses Sepsis A41.9 Sepsis type: sepsis due to unspecified organism Sepsis acute organ dysfunction status: with acute organ dysfunction Severe sepsis acute organ dysfunction type: acute renal failure Severe sepsis shock status: without septic shock Sacral decubitus ulcer, stage IV L89.154 Wound infection T14.8XXA; L08.9 Acute kidney injury N17.9 Fracture of surgical neck of left humerus S42.212A H/O: stroke with residual effects I69.30 Status post laser lithotripsy of ureteral calculus Z98.890 Bacteremia R78.81 Anemia D64.9
[2022-06-01] MEDS: cefTRIAXone 2,000 MG in sodium chloride 0.9% (plus) 50 ML 100 MG IV (17:23)
[2022-06-01] MEDS: sodium chloride 0.9% 1,000 ML 75 ML IV (17:23)
[2022-06-01] MEDS: fluconazole premix 200 MG/100 ML PREMIX 100 MG IV (17:24)
[2022-06-01] MEDS: acetaminophen 325 mg Tablet 650 MG PO (19:49)
[2022-06-01 20:29] LABS: Vancomycin Trough 5.7 ug/mL (10-15)
[2022-06-02] VITALS: BP 149/60; PULSE 92; RESP 17; TEMP 36.9; O2SAT 100
[2022-06-02 04:00] VITALS: BP 167/84; PULSE 90; RESP 16; TEMP 37.8; O2SAT 97
[2022-06-02] MEDS: sodium chloride 0.9% 1,000 ML 75 ML IV ×2 (05:10→17:43)
[2022-06-02] MEDS: heparin 5,000 unit/mL INJ 1 mL 5000 UNIT SUBCUT ×2 (05:11→17:54)
[2022-06-02 06:52] LABS: Basophils # 0.1 10^3/uL (0.0-0.1); Basophils % 0.7 %; Eosinophils # 0.2 10^3/uL (0.0-0.8); Eosinophils % 2.7 %; Hematocrit 25.6 % (37.0-47.0); Hemoglobin 7.3 g/dL (11.5-15.3); Lymphocytes # 1.9 10^3/uL (0.8-4.8); Lymphocytes % 26.1 %; Mean Corpuscular HGB Conc 28.5 g/dL (30.0-36.0); Mean Corpuscular Hemoglobin 26.4 pg (28.0-34.0); Mean Corpuscular Volume 92.4 fl (81-99); Mean Platelet Volume 11.7 fL (7.4-10.4); Monocytes # 0.5 10^3/uL (0.2-0.9); Monocytes % 6.7 %; Neutrophils # 4.49 10^3/uL (1.8-7.7); Neutrophils % 63.1 %; Nucleated Red Blood Cells % 0 %; Platelet Count 189 10^3/cmm (130-400); Red Blood Count 2.77 10^6/uL (4.1-5.3); White Blood Count 7.1 10^3/uL (4.0-10.0)
[2022-06-02 07:05] LABS: Alanine Aminotransferase 18 U/L (0-33); Alkaline Phosphatase 173 U/L (35-105); Anion Gap 12.7 (5-19); Aspartate Amino Transferase 14 U/L (0-32); Blood Urea Nitrogen 13 mg/dL (8-23); Calcium 9.3 mg/dL (8.5-10.5); Carbon Dioxide 25 mmol/L (22-29); Chloride 105 mmol/L (98-107); Globulin 5.1 g/dL (1.3-4.6); Glomerular Filtration Rate 71.3 mL/min (90-130); Glucose 144 mg/dL (65-115); Osmolality Calculated 291 mOsm/kg (285-295); Potassium 3.7 mmol/L (3.5-5.1); Sodium 139 mmol/L (136-145); Total Bilirubin 0.2 mg/dL (0.15-1.2); Total Protein 7.1 g/dL (6.6-8.7)
[2022-06-02 07:24] VITALS: BP 155/86; PULSE 94; RESP 16; TEMP 37.7; O2SAT 98
[2022-06-02] MEDS: pantoprazole DR 40 mg Tablet PO ×2 (08:45→17:54)
[2022-06-02] MEDS: sennosides-docusate Tablet 1 TAB PO (08:45)
[2022-06-02] MEDS: metoprolol tartrate 25 mg Tablet PO ×2 (08:45→17:55)
[2022-06-02] MEDS: ferrous gluconate 324 mg Tablet PO ×2 (08:45→17:55)
--- NOTE | 2022-06-02 10:50 | PC.SOCIAL ---
IMM Update pg 2 of IMM updated and reviewed w/ patients . Copy provided and copy dated, initialed and placed in chart.
[2022-06-02 12:00] VITALS: BP 151/78; PULSE 96; RESP 16; TEMP 37.6; O2SAT 99
[2022-06-02] MEDS: acetaminophen 325 mg Tablet 650 MG PO (14:09)
[2022-06-02] MEDS: HYDROcodone-acetaminophen 5-325 mg Tablet 1 TAB PO (14:09)
--- NOTE | 2022-06-02 14:10 | P.PN_ITS ---
Subjective Subjective: No acute vents overnight. Remains at baseline mentation. at bedside. Rib seems uncomfortable in bed. Denies any diarrhea. T-max within last 24 hours 102.3 Fahrenheit. Medications: Reviewed: Yes Vitals/I&O/Wt Last Vital Signs Temp 99.7 F H 06/02/22 12:00 Pulse 96 06/02/22 12:00 Resp 16 06/02/22 12:00 BP 151/78 06/02/22 12:00 Pulse Ox 99 06/02/22 12:00 O2 Del Method 06/01/22 16:00 06/01/22 06/02/22 06/02/22 22:59 06:59 14:59 Intake Total 969 / 1849 883.75 / 2732.75 720 / 720 Output Total 700 / 700 475 / 1175 Balance 269 / 1149 408.75 / 1557.75 720 / 720 Weight last 48 hrs Weight 58.241 kg Weight 56.336 kg Physical Exam Narrative: General: No acute distress, seems uncomfortable, AO x1-2, not following simple commands, chronically sick appearing HEENT: PERRLA, pupils bilaterally equal and reactive Chest: Bilateral bronchial breath sounds CVS: S1-S2 regular, no murmurs, no tachycardia, no gallops, no rubs Abdomen: Soft, nontender, no organomegaly, bowel sounds present, morbidly obese Neuro: No focal deficits, no facial deformity, AO x3, power 5/5 in all limbs Extremities: Surgically bandaged currently decub ulcers. No foul smell no drainage Urinary Catheter Management: Barraza: Cath Placed During This Visit: yes Reason for Continuing Indwelling Catheter: Assist Healing of Perineal & Sacral Wounds- Incontinent Patients Urinary Catheter Date of Insertion: 05/22/22 Urinary Catheter Time of Insertion: 16:00 Data 06/02/22 06:36 06/02/22 06:36 Micro: Microbiology 06/01/22 14:11 Blood Culture - Preliminary Blood SPECIMEN COLLECTED 06/01/22 14:17 Blood Culture - Preliminary Blood SPECIMEN COLLECTED A&P Assessment and plan (1) Sepsis: Sacral decubitus ulcer along with osteomyelitis and nonobstructive pyelonephritis. Blood cultures from admission positive for strep angiosis. Wound culture positive for E. coli and Klebsiella. Urine culture positive for Heather albicans. Patient has finished course with Diflucan. Repeat blood cultures from 05/25 so far negative. Patient still having low-grade fever for last 48 hours. Switch antibiotics to IV ceftriaxone as per culture sensitivities. Day 11 of appropriate antibiotics today. Repeat urinalysis, chest x-ray. Check renal ultrasound to rule out hydronephrosis given recent history of obstructive pyelonephritis. Check COVID-19 PCR and flu swab. Fever could be secondary to atelectasis but will rule out infectious source. With bacteremia with strep anginonosus. Discussed treatment for infection, source control, consideration of further evaluation with endoscopy to exclude GI malignancy depending on goals of care. Patient most likely needs IV antibiotics for 6 weeks. Though IV access is not currently placed. Will request a midline if possible. Will request ID recommendations and consult to see if oral antibiotic is a possibility. If both of them are not possible then we will most likely discharge with IM ceftriaxone 2 g daily. Qualifiers: Sepsis type: sepsis due to unspecified organism Sepsis acute organ dysfunction status: with acute organ dysfunction Severe sepsis acute organ dysfunction type: acute renal failure Severe sepsis shock status: without septic shock (2) Sacral decubitus ulcer, stage IV: Continue wet-to-dry for residual necrotic tissue, surgical reassessment and debridement. IV antibiotics as above. Appreciate surgical recommendations. Status post debridement of the wound 05/24. Additional bedside debridement 05/28. (3) Wound infection: As above. (4) Acute kidney injury: Resolved. Baseline creatinine normal. Hold off on lisinopril and metformin. Strict input output charting. (5) Fracture of surgical neck of left humerus: Patient at baseline is wheelchair and bedbound. (6) H/O: stroke with residual effects: (7) Status post laser lithotripsy of ureteral calculus: (8) Bacteremia: Strep anginosus, suspected secondary to infected sacral decub, deep with necrotic tissue, bone destruction with osteomyelitis, although as seen in other cases may be related to occult GI malignancy. Though less likely, may still need investigation to exclude this down the road after acute illness as discuss ed with . She does have also iron deficiency anemia. (9) Anemia: Hemoglobin again with downtrending. Reassess, if dropping below 7 transfuse again. Hemoccult requested but so far not obtained. Continue PPI to twice daily. Could be secondary to chronic losses versus anemia of chronic disease.? Possibly dilutional component with rehydration.? Hemoccult. Monitor hemoglobin daily. Noted iron deficiency anemia. B12, folate normal. TSh normal. As discussed with her , as well as surgery handout, further consideration of endoscopic evaluation on outpatient basis. Plan CODE STATUS: Full code. Cardiac diet. Heparin 5000 every 12 hourly for DVT prophylaxis. Protonix for PUD prophylaxis Goals of care discussion: Patient has baseline left-sided residual deficit from old CVA. Patient is baseline bedbound with completely being dependent for ADLs. Currently being admitted for bacteremia from osteomyelitis and sacral decubitus post debridement x2 with recent history of obstructive pyelonephritis. Patient was supposed to be discharged with IV antibiotics for next 6 weeks but patient started spiking fevers again. Work-up including UA, chest x-ray, renal ultrasound appreciated. Concern for worsening cellulitis again. Discussed with that even after appropriate antibiotics as patient remains bedbound there is a high chance of recurrent infections and nonhealing of decub ulcer leading to worsening of osteomyelitis or persistent of osteomyelitis. Given poor baseline functional and mental condition along with acute illness further goals of care including palliative and hospice were discussed in detail with patient's DPOA/. Palliative care and hospice explained in detail to the patient's . would want to go ahead with hospice care. He was explained hospice care would mean no active treatment for any acute illness while continuing chronic medications and comfort medications. If and when patient gets sick again goals will be to keep patient comfortable at home which would eventually mean her demise. verbalizes understanding and would like to go ahead with hospice care. Case management alerted. Attestations Medical Necessity Statement*: Requires further hospitalization while hospice care is set up for patient with baseline left-sided residual weakness post CVA, being bedbound, sacral decubitus ulcer with osteomyelitis Time Spent in Patient Care: Greater than 35 minutes Coding Level of Care Code Acute Pile Driver Operator for [facility] Fwd Diagnoses Sepsis A41.9 Sepsis type: sepsis due to unspecified organism Sepsis acute organ dysfunction status: with acute organ dysfunction Severe sepsis acute organ dysfunction type: acute renal failure Severe sepsis shock status: without septic shock Sacral decubitus ulcer, stage IV L89.154 Wound infection T14.8XXA; L08.9 Acute kidney injury N17.9 Fracture of surgical neck of left humerus S42.212A H/O: stroke with residual effects I69.30 Status post laser lithotripsy of ureteral calculus Z98.890 Bacteremia R78.81 Anemia D64.9
[2022-06-02] MEDS: cefTRIAXone 2,000 MG in sodium chloride 0.9% (plus) 50 ML 100 MG IV (14:11)
[2022-06-02 15:44] VITALS: BP 152/71; PULSE 98; RESP 17; TEMP 37.9; O2SAT 98
[2022-06-02] MEDS: fluconazole premix 200 MG/100 ML PREMIX 100 MG IV (17:54)
[2022-06-02 20:00] VITALS: BP 174/76; PULSE 101; RESP 18; TEMP 36.6; O2SAT 99
[2022-06-03] VITALS: BP 135/74; PULSE 102; RESP 16; TEMP 38.3; O2SAT 96
[2022-06-03] MEDS: HYDROcodone-acetaminophen 5-325 mg Tablet 1 TAB PO ×2 (00:17→08:20)
--- NOTE | 2022-06-03 02:05 | PC.NURSE ---
Dr. Chaney notified of patient having a lot of pain upon dressing changes and turning. PRN Morphine ordered.
[2022-06-03] MEDS: heparin 5,000 unit/mL INJ 1 mL 5000 UNIT SUBCUT (03:53)
[2022-06-03 04:00] VITALS: BP 142/61; PULSE 117; RESP 18; TEMP 38.6; O2SAT 94
[2022-06-03] MEDS: acetaminophen 325 mg Tablet 650 MG PO (05:27)
[2022-06-03 08:00] VITALS: BP 167/72; PULSE 98; RESP 20; TEMP 36.5; O2SAT 91
[2022-06-03] MEDS: metoprolol tartrate 25 mg Tablet PO (08:20)
[2022-06-03] MEDS: pantoprazole DR 40 mg Tablet PO (08:20)
[2022-06-03] MEDS: sennosides-docusate Tablet 1 TAB PO (08:20)
[2022-06-03] MEDS: ferrous gluconate 324 mg Tablet PO (08:20)
[2022-06-03] MEDS: sodium chloride 0.9% 1,000 ML 75 ML IV (09:03)
--- NOTE | 2022-06-03 10:03 | PC.CHAP ---
Pastoral Care Encounter/Spiritual Assessment Type of Contact [] Declined furniture mover visit [] Patient/Family/Request visit [] Outpatient visit [] Follow-up visit [] Physician referral [] Code/Alert [x] Routine visit [] Staff referral [] Actively dying [] Patient sleeping [] Family support [] [] Out of room [] Palliative care [] [] Receiving care in room [] Pre-surgical visit [] Trauma [] Long length of stay [] ICU visit [] Other: Relational/Emotional Strength [x] Patient feels connected with others/family/visitors/staff [] Distress [] Loneliness/isolation [] Abandonment Spirituality of Patient [] Person of Bhavani [] Attends Taoist of their Bhavani [] Believes in Prayer [] Reads Bible or Yazidism materials [x] There are Spiritual issues to be addressed Dev Manager Interventions [x] Prayer [x] Active listening [x] Non-anxious presence [x] Spiritual/emotional support [] Crisis/trauma care [] Spiritual counseling [] Bereavement support [] Provided bereavement packet [] Provided Bible/devotional materials [] Provided toy/stuffed animal, coloring book to patient or family member [] Provided Communion [] Anointing/Palestine [] Salvation [x] Completed spiritual assessment [] Other: Impact on Illness or Injury [] Angry [] Fearful [] Anxious [] Often cries [] Exhaustion [] Unable to work [] Unable to attend muslim [] Unable to walk/stand [] Unable to read [] Unable to drive [] Unable to eat/drink [] Unable to sleep [] Unable to be with family [] Patient intubated [] Other: Summary Pt's present and furniture mover visited with him. They have been for 48 years. Pt has been in hospital for 11 days and has stayed with her during that entire time. Time spent with patient 10m
--- NOTE | 2022-06-03 10:48 | P.DS_ITS ---
Discharge Providers Date of Admission: 05/22/22 15:23 Date of Discharge: June 03, 2022 Attending Provider at Admission: Faisal Sultana MD Attending Provider at Discharge: Faisal Sultana MD Consults: Surgery: Dr. Denis Primary Care Provider: Angie Conn MD Diagnoses at Discharge Discharge Diagnosis (1) Sepsis: Status: Acute Qualifiers: Sepsis acute organ dysfunction status: with acute organ dysfunction Sepsis type: sepsis due to unspecified organism Severe sepsis acute organ dysfunction type: acute renal failure Severe sepsis shock status: without septic shock (2) Sacral decubitus ulcer, stage IV: Status: Acute (3) Wound infection: Status: Acute (4) Acute kidney injury: Status: Acute (5) Fracture of surgical neck of left humerus: Status: Acute (6) H/O: stroke with residual effects: Status: Acute (7) Status post laser lithotripsy of ureteral calculus: Status: Inactive (8) Bacteremia: Status: Acute (9) Anemia: Status: Acute Reason for Visit Reason for Visit: osteo Brief History: History as per HPI: Shannan Morin is a 66 year old female with past medical history of hypertension, CVA with left-sided residual weakness, recent diagnosis of infected UPJ junction stone for which she underwent stent placement and removal in January with Dr. Guy at which time she also had E. coli bacteremia which was treated with antibiotics was sent in from wound care clinic after direct admit with concerns for deep-seated wound infection versus osteomyelitis needing further debridement and IV antibiotics.? Patient's wound has been partially debrided at wound care clinic today.? Not sure if wound cultures were taken from there or not. As per the he first noticed the ulcer around 2 months ago and he has been treating it at home with nystatin powder and Tegaderm.? The skin broke open last Wednesday around 5 days ago but the wound was dry until today morning when serosanguineous fluid which was foul-smelling started draining from it. No lab work present in the system. Hospital Course Hospital Course Patient return to the hospital for evaluation and management of sepsis. She was found to be septic secondary to sacral decubitus ulcer and later found to have osteomyelitis on CT scan. Abdominal CT scan which was negative for obstructive nephropathy but was consistent with pyelonephritis as well. She was also found to be in acute kidney injury on admission. She was started on broad-spectrum antibiotics and underwent sharp debridement of sacral pressure injury on May 24. During hospitalization her blood cultures came back positive for strep on admission and wound cultures were growing E. coli and Klebsiella. She was continued on broad-spectrum antibiotics as per culture sensitivities. Eventually patient started defervescing after continue treatment for around a week. Her hospitalization was complicated by her developing anemia for which she required blood transfusion. As more definitive IV access was being arranged with a PICC line which was difficult to place because of poor peripheral veins patient started spiking fevers again. Infectious work-up including viral panel, chest x-ray, abdominal imaging remains negative and at baseline. It is believed that her fevers are again secondary to worsening of cellulitis around the sacral decubitus ulcer. Further goals of care discussions were done with who is patient's DPOA at bedside. Discussions were as followed? Patient has baseline left-sided residual deficit from old CVA.? Patient is baseline bedbound with completely being dependent for ADLs.? Currently being admitted for bacteremia from osteomyelitis and sacral decubitus post debridement x2 with recent history of obstructive pyelonephritis.? Patient was supposed to be discharged with IV antibiotics for next 6 weeks but patient started spiking fevers again.? Work-up including UA, chest x-ray, renal ultrasound appreciated.? Concern for worsening cellulitis again.? Discussed with that even after appropriate antibiotics as patient remains bedbound there is a high chance of recurrent infections and nonhealing of decub ulcer leading to worsening of osteomyelitis or persistent of osteomyelitis.? Given poor baseline functional and mental condition along with acute illness further goals of care including palliative and hospice were discussed in detail with patient's DPOA/.? Palliative care and hospice explained in detail to the patient's . would want to go ahead with hospice care.? He was explained hospice care would mean no active treatment for any acute illness while continuing chronic medications and comfort medications.? If and when patient gets sick again goals will be to keep patient comfortable at home which would eventually mean her demise.? verbalizes understanding and would like to go ahead with hospice care. Hospice has been arranged and patient is been discharged in comfortable state. Physical Exam Narrative: Not examined given hospice status. Urinary Catheter Management: Barraza: Cath Placed During This Visit: yes Reason for Continuing Indwelling Catheter: Assist Healing of Perineal & Sacral Wounds- Incontinent Patients Urinary Catheter Date of Insertion: 05/22/22 Urinary Catheter Time of Insertion: 16:00 Discharge Data Studies Completed and Pending Completed Studies During Hospitalization Category Date Time Status CT abdomen pelvis wo con [id number] Routine Cat Scan 05/22/22 17:10 Completed CXRP [XR chest 1V portable [id number]] Routine Exams 05/28/22 13:20 Completed XR chest 1V portable [id number] Routine Exams 06/01/22 12:21 Completed US renal BI* [id number] Routine Ultrasound 06/01/22 12:18 Completed Pending at discharge Category Date Time Status Blood Culture Stat Lab 06/01/22 14:11 Results COVID OZH [Coronavirus PCR] Routine Lab 06/01/22 Received Radiology Impressions Abdomen/Pelvis CT 05/22/22 17:10 IMPRESSION: 1. Large decubitus ulcer over the distal sacrum and coccyx. The defect extends to the bone of the coccyx. 2. Partial destruction and/or debridement of the proximal segments of the coccyx. This is consistent with osteomyelitis. 3. Presacral soft tissue infection with small gas bubbles but no discrete drainable abscess. 4. Mild stranding around the left renal pelvis and proximal ureter without a calculus or hydronephrosis. This could represent scarring or infection of the left renal collecting system. Renal Ultrasound 06/01/22 12:18 IMPRESSION: 1. Normal size kidneys. 2. No hydronephrosis or mass. Chest X-Ray 06/01/22 12:21 Impression: Clearing of left perihilar opacity. Laboratory Results WBC 7.1 10^3/uL (4.0-10.0) 06/02/22 06:36 RBC 2.77 10^6/uL (4.1-5.3) L 06/02/22 06:36 Hgb 7.3 g/dL (11.5-15.3) L 06/02/22 06:36 Hct 25.6 % (37.0-47.0) L 06/02/22 06:36 MCV 92.4 fl (81-99) D 06/02/22 06:36 MCH 26.4 pg (28.0-34.0) L 06/02/22 06:36 MCHC 28.5 g/dL (30.0-36.0) L D 06/02/22 06:36 RDW 16.0 % (12.1-15.1) H 06/02/22 06:36 Plt Count 189 10^3/cmm (130-400) 06/02/22 06:36 MPV 11.7 fL (7.4-10.4) H 06/02/22 06:36 Neut % (Auto) 63.1 % 06/02/22 06:36 Lymph % (Auto) 26.1 % 06/02/22 06:36 Calloway % (Auto) 6.7 % 06/02/22 06:36 Eos % (Auto) 2.7 % 06/02/22 06:36 Baso % (Auto) 0.7 % 06/02/22 06:36 Neut # (Auto) 4.49 10^3/uL (1.8-7.7) 06/02/22 06:36 Lymph # (Auto) 1.9 10^3/uL (0.8-4.8) 06/02/22 06:36 Calloway # (Auto) 0.5 10^3/uL (0.2-0.9) 06/02/22 06:36 Eos # (Auto) 0.2 10^3/uL (0.0-0.8) 06/02/22 06:36 Baso # (Auto) 0.1 10^3/uL (0.0-0.1) 06/02/22 06:36 Nucleated RBC % (auto) 0 % 06/02/22 06:36 Nucleated RBCs # 0.0 /100WBC 06/02/22 06:36 ESR 7 mm/hr (0-15) 05/22/22 16:05 PT 15.60 SECONDS (12.1-14.9) H 05/22/22 16:05 INR 1.21 (0.8-1.2) H 05/22/22 16:05 Sodium 139 mmol/L (136-145) 06/02/22 06:36 Potassium 3.7 mmol/L (3.5-5.1) 06/02/22 06:36 Chloride 105 mmol/L (98-107) 06/02/22 06:36 Carbon Dioxide 25 mmol/L (22-29) 06/02/22 06:36 Anion Gap 12.7 (5-19) 06/02/22 06:36 BUN 13 mg/dL (8-23) 06/02/22 06:36 Creatinine 0.8 mg/dL (0.5-0.9) 06/02/22 06:36 GFR Calculation 71.3 mL/min (90-130) L 06/02/22 06:36 Glucose 144 mg/dL (65-115) H 06/02/22 06:36 POC Glucose 213 mg/dL (70-110) H 05/24/22 21:44 Calculated Osmolality 291 mOsm/kg (285-295) 06/02/22 06:36 Calcium 9.3 mg/dL (8.5-10.5) 06/02/22 06:36 Phosphorus 4.0 mg/dL (2.5-4.5) 05/22/22 16:05 Magnesium 1.8 mg/dL (1.7-2.3) 05/22/22 16:05 Iron 15 ug/dL (37-145) L 05/22/22 16:05 TIBC 145 mcg/dl 05/22/22 16:05 % Saturation 10.3 % (20-50) L 05/22/22 16:05 Unsat Iron Binding 130 ug/dL (112-347) 05/22/22 16:05 Total Bilirubin 0.2 mg/dL (0.15-1.2) 06/02/22 06:36 AST 14 U/L (0-32) 06/02/22 06:36 ALT 18 U/L (0-33) 06/02/22 06:36 Alkaline Phosphatase 173 U/L (35-105) H 06/02/22 06:36 C-Reactive Protein 186.7 mg/L (0.0-4.9) H 05/22/22 16:05 Total Protein 7.1 g/dL (6.6-8.7) 06/02/22 06:36 Albumin 2.0 g/dL (3.5-5.2) L 06/02/22 06:36 Globulin 5.1 g/dL (1.3-4.6) H 06/02/22 06:36 Triglycerides 136 mg/dL (0-150) 05/23/22 05:08 Cholesterol 116 mg/dL (0-200) 05/23/22 05:08 LDL Cholesterol, Calc 68 mg/dL (50-129) 05/23/22 05:08 Total VLDL Cholesterol 27 mg/dL (0-30) 05/23/22 05:08 HDL Cholesterol 21 mg/dL (60-100) L 05/23/22 05:08 Cholesterol/HDL Ratio 5.52 mg/dL (0.0-4.40) H 05/23/22 05:08 Vitamin B12 658 pg/mL (232-1245) 05/22/22 16:05 Folate > 20.0 ng/mL (4.8-37.3) 05/22/22 16:05 Procalcitonin 6.35 ng/mL (0-0.5) H 05/22/22 16:05 TSH 2.25 uIU/mL (0.27-4.20) 05/22/22 16:05 Urine Color Yellow (Yellow) 05/22/22 17:38 Urine Appearance Hazy (CLEAR) A 05/22/22 17:38 Urine pH 5 (5-7) 05/22/22 17:38 Ur Specific [place] 1.020 (1.005-1.030) 05/22/22 17:38 Urine Protein Neg (Negative) 05/22/22 17:38 Urine Glucose (UA) Norm (Normal) 05/22/22 17:38 Urine Ketones Negative (Negative) 05/22/22 17:38 Urine Blood 2+ (Negative) H 05/22/22 17:38 Urine Nitrate Negative (Negative) 05/22/22 17:38 Urine Bilirubin Neg (Negative) 05/22/22 17:38 Urine Urobilinogen Norm mg/dL (Negative) 05/22/22 17:38 Ur Leukocyte Esterase 2+ (Negative) H 05/22/22 17:38 Urine RBC 0-4 /hpf (0-2) H 05/22/22 17:38 Urine WBC Too numerous to cnt /hpf (0-5) H 05/22/22 17:38 Ur Eosinophil Smear Not Reportable 05/22/22 17:38 Ur Squamous Epith Cells 0-4 /hpf (0-5) H 05/22/22 17:38 Amorphous Sediment Not Reportable 05/22/22 17:38 Urine Bacteria Trace /hpf (NONE) 05/22/22 17:38 Urine Eosinophils No eosinophils seen 05/22/22 17:38 Ur Random Sodium 61 mmol/L 05/22/22 17:38 Ur Random Potassium 42 mmol/L 05/22/22 17:38 Ur Random Chloride 56 mmol/L 05/22/22 17:38 Urine Creatinine 81 mg/dL (28-217) 05/22/22 17:38 Vancomycin Trough 5.7 ug/mL (10-15) L 06/01/22 19:00 Influenza Type A Ag negative (Negative) 06/01/22 14:22 Influenza Type B Ag negative (Negative) 06/01/22 14:22 Blood Type A Positive 05/24/22 09:05 Rho(D) Type Positive 05/24/22 09:05 Antibody Screen Negative 05/24/22 09:05 Crossmatch See Detail 05/24/22 09:05 Vitals Last Vital Signs Temp 97.7 F 06/03/22 08:00 Pulse 98 06/03/22 08:00 Resp 20 H 06/03/22 08:00 BP 167/72 06/03/22 08:00 Pulse Ox 91 06/03/22 08:00 O2 Del Method 06/03/22 08:00 Discharge Plan Discharge Patient Disposition: Hospice - Home Condition: Stable Prescriptions: Continued clopidogrel 75 mg tablet 75 mg PO DAILY Qty: 90 3RF Hold Instructions: Resume on 02/20/22. nystatin 100,000 unit/gram cream See Rx Instructions .ROUTE .COMPLEX Qty: 30 10RF Dose Instruction: APPLY TOPICALLY THREE TIMES DAILY Rx Instructions: APPLY TOPICALLY THREE TIMES DAILY sennosides-docusate sodium [Stool Softener-Laxative] 8.6-50 mg Tablet 1 tab PO DAILY Qty: 20 0RF metoprolol tartrate 50 mg tablet 50 mg PO BID Qty: 60 2RF amlodipine 5 mg tablet 5 mg PO DAILY Qty: 30 2RF metformin 500 mg Tablet 500 mg PO BID lisinopril 20 mg Tablet 20 mg PO DAILY Discharge Orders: Discharge Order (Routine); Ordered 06/03/22 Ordered By: Faisal Sultana Other Ambulatory Orders: Complete Blood Count w/Auto (Routine) Timeframe: 6 Weeks Location: [facility]. View Ordered By: Faisal Sultana Comprehensive Metabolic Panel (Routine) Timeframe: 6 Weeks Location: [facility]. View Ordered By: Faisal Sultana Miscellaneous Procedure (Order) Location: None Selected Ordered By: Faisal Sultana Miscellaneous Procedure (Order) Location: None Selected Ordered By: Sukh Denis Referrals: [facility] [Outside] Discharge Diet: Usual diet Discharge Activity: Bedrest Patient Instructions: Hospice Care (GEN), Opioid Safety Activity Restrictions/Additional Instructions: Hospice care. Discharge Attestations Time Spent in Discharge Care*: greater than 30 min Specific Discharge Activities: educating and/or supporting family/caregiver, discussing with pcp/other providers, discussing with porter sample case/social workers/dc planners, documenting/other paperwork and evaluating pat ient/reviewing data Status at Discharge: Cognitive status at discharge: moderately impaired cognition , Behavioral status at discharge: cooperative , Functional status at discharge: bed bound , Overall status at discharge: patient is not back to baseline Quality Metrics Clinical Quality Measures [ No reported AMI, CVA or VTE this stay] Coding Level of Care Code Acute Chg FW DC note Diagnoses Sepsis A41.9 Sepsis acute organ dysfunction status: with acute organ dysfunction Sepsis type: sepsis due to unspecified organism Severe sepsis acute organ dysfunction type: acute renal failure Severe sepsis shock status: without septic shock Sacral decubitus ulcer, stage IV L89.154 Wound infection T14.8XXA; L08.9 Acute kidney injury N17.9 Fracture of surgical neck of left humerus S42.212A H/O: stroke with residual effects I69.30 Status post laser lithotripsy of ureteral calculus Z98.890 Bacteremia R78.81 Anemia D64.9
[2022-06-03 12:30] VITALS: BP 161/80; PULSE 93; RESP 18; TEMP 37.1; O2SAT 91
--- NOTE | 2022-06-03 13:41 | PC.NURSE ---
Report called to [facility].
[2022-06-03 14:36] VITALS: BP 161/80; PULSE 93; RESP 18; TEMP 37.1; O2SAT 91
== END 2022-06-03 14:37 | disposition hospice, home (50) | DRG 854 ==
PROVIDERS: Internal Medicine; Surgery; Admitting Provider Student in an Organized Health Care Education/Training Program; PCP Family Medicine; Visit Provider Student in an Organized Health Care Education/Training Program
PROC: 0QB10ZZ Excision of Sacrum, Open Approach (ICD-10-PCS; principal; 2022-05-24 08:00)
DX: A41.51 Sepsis due to Escherichia coli [E. coli] (principal); E87.0 Hyperosmolality and hypernatremia; M86.9 Osteomyelitis, unspecified; N17.9 Acute kidney failure, unspecified; I69.954 Hemiplegia and hemiparesis following unspecified cerebrovascular disease affecting left non-dominant side; N12 Tubulo-interstitial nephritis, not specified as acute or chronic; L03.312 Cellulitis of back [any part except buttock and flank]; R65.20 Severe sepsis without septic shock; E11.69 Type 2 diabetes mellitus with other specified complication; B96.1 Klebsiella pneumoniae [K. pneumoniae] as the cause of diseases classified elsewhere; B95.4 Other streptococcus as the cause of diseases classified elsewhere; M80.022S Age-related osteoporosis with current pathological fracture, left humerus, sequela; Z87.442 Personal history of urinary calculi; D50.9 Iron deficiency anemia, unspecified; I10 Essential (primary) hypertension; Z74.01 Bed confinement status; Z79.02 Long term (current) use of antithrombotics/antiplatelets; Z87.891 Personal history of nicotine dependence; Z79.84 Long term (current) use of oral hypoglycemic drugs
CPT/HCPCS: 11044; 11047; 36415; 36416; 36430; 36569; 51702; 71045; 74176; 76770; 80053; 80061; 80202; 81001; 82274; 82436; 82570; 82607; 82746; 82962; 83540; 83550; 83735; 84100; 84133; 84145; 84295; 84300; 84443; 85025; 85610; 85651; 85999; 86140; 86403; 86850; 86900; 86920; 87040; 87070; 87075; 87077; 87086; 87106; 87150; 87176; 87186; 87205; 87449; 87635; 87641; 87804; 93005; 96372; 99213; G0379; J0696; J1450; J1644; J2250; J2370; J2543; J2704; J3010; J3370; J7030; J7050; J7070; P9016